=== PATIENT | male | born 1940 | race Caucasian/White ===

== ENCOUNTER 2016-09-18 06:44 | Day surgery (SDC) | payer OTHER ==
[2016-09-17 09:28] VITALS: BMI 25.7
[2016-09-18] MEDS ORDERED: LIDOCAINE HCL 1%, 10 MG/ML (20ML VIAL) ONE (07:18)
[2016-09-18] MEDS ORDERED: BUPIVACAINE HCL/PF 0.5% (5MG/ML) 10 ML VIAL ONE (07:18)
[2016-09-18] MEDS ORDERED: MIDAZOLAM HCL 2 MG/2 ML SINGLE DOSE VIAL ONE (08:56)
[2016-09-18] MEDS ORDERED: ceFAZolin SODIUM 1 GM VIAL ONE (08:56)
[2016-09-18] MEDS ORDERED: LIDOCAINE HCL/PF 2% SDV 5ML VIAL ONE (08:56)
[2016-09-18] MEDS ORDERED: PROPOFOL 20 ML ONE ×2 (08:56)
[2016-09-18] MEDS ORDERED: ceFAZolin SODIUM 1 GM VIAL IVPB ONE (09:08)
[2016-09-18] MEDS ORDERED: BUPIVACAINE HCL/PF 0.5% (5MG/ML) 10 ML VIAL IJ ONE ×2 (09:15)
[2016-09-18] MEDS ORDERED: LIDOCAINE HCL 1%, 10 MG/ML (20ML VIAL) IJ ONE ×2 (09:15)
--- NOTE | 2016-09-18 09:40 | HP ---
Satellite [facility] - Chief Complaint Chief Complaint: right hand pain and numbness, weakness History of Present Illness: right CTS History Source: Patient Limitations to Obtaining History: No Limitations - Past Medical History Allergies/Adverse Reactions: Allergies Allergy/AdvReac Type Severity Reaction Status Date / Time No Known Drug Allergies Allergy Verified 09/17/16 09:23 - Current Medications Current Medications: Home Medications Medication Instructions Recorded Gabapentin [Neurontin -] 300 mg PO Q8H 11/29/14 Simvastatin [Zocor -] 20 mg PO HS 11/29/14 Zolpidem Tartrate [Ambien] 10 mg PO HS 11/29/14 Clopidogrel Bisulfate [Plavix -] 75 mg PO DAILY 01/18/16 Fluticasone Prop 0.05% Nasal 1 puff NS DAILY 09/17/16 [Flonase -] Ibuprofen 800 mg PO DAILY 09/17/16 Mirabegron [Myrbetriq] 25 mg PO DAILY 09/17/16 Oxycodone HCl/Acetaminophen 1 each PO Q6H PRN 09/17/16 [Percocet 10-325 mg Tablet] Tamsulosin HCl [Flomax] 0.4 mg PO HS 09/17/16 Satellite Physical Exam - Physical Examination Vital Signs: Vital Signs Period Temp Pulse Resp BP Sys/[place] Pulse Ox Last 24 Hr 97.6 F 52 20 147/94 98 General Appearance: Well Nourished ENT: Clear Lung: Clear to auscultation Heart: Regular rate & rhythm Breasts: Soft Abdomen: Soft Extremities: No edema Satellite Impression/Plan - Impression/Plan Impression: right CTS Operative Procedure: right CTR, tenosynovectomy Date to be Performed: 09/18/16
--- NOTE | 2016-09-18 09:41 | OP ---
Operative Note - Note: Operative Date: 09/18/16 Pre-Operative Diagnosis: right CTS, tenosynovitis Operation: right CTR, tenosynovectomy Post-Operative Diagnosis: Same as Pre-op Surgeon: Richmond Butler Continuing Education Instructor: Frederick De La Torre Anesthesiologist/MANAGEMENT LIAISON: Fina Oro Anesthesia: General, Local Specimens Removed: tenosynovium Estimated Blood Loss (mls): 0 Blood Volume Replaced (mls): 0 Fluid Volume Replaced (mls): 500 Operative Report Dictated: Yes
[2016-09-18] MEDS ORDERED: oxyCODONE HCL 5 MG TABLET PO PRN (09:42)
[2016-09-18] MEDS ORDERED: ONDANSETRON 4 MG/2 ML VIAL IVPUSH PRN (09:42)
[2016-09-18 10:19] VITALS: TEMP 97.9
--- NOTE | 2016-09-18 12:39 | SPEC ---
DATE OF OPERATION: 09/18/2016 PREOPERATIVE DIAGNOSIS: Right carpal tunnel syndrome and tenosynovitis. POSTOPERATIVE DIAGNOSIS: Right carpal tunnel syndrome and tenosynovitis. PROCEDURE: Right carpal tunnel release and tenosynovectomy. SURGEON: Richmond Butler MD HIGH SCHOOL FORE[employer] LANGUAGE TUTOR: Frederick De La Torre MD, Fina Oro MD ANESTHESIA: MAC anesthesia, local injection of 12 mL 0.5% Marcaine, 1% lidocaine mixed. DRAINS: None. COMPLICATIONS: None. SPECIMENS: Tenosynovium, right wrist. BLOOD LOSS: None. BLOOD GIVEN: None. FLUID REPLACEMENT: 500 mL. The patient is a 75-year-old male with preoperative diagnosis of right carpal tunnel syndrome and tenosynovitis. After understanding the potential risks, complications, alternatives, and benefits of surgery versus nonsurgical treatment, the patient elected to undergo this procedure. DESCRIPTION OF PROCEDURE: The patient was brought to the operating room, peripheral IV placed and intravenous sedation was given. One gram of intravenous Ancef was given. MAC anesthesia was induced. A tourniquet was applied to the right upper arm and the right upper extremity was prepped and draped in sterile fashion. The entire case was done under 3.8 loupe magnification. A marking pen was utilized to ceci out a longitudinal incision in an already existing skin crease. Twenty mL of 0.5% Marcaine mixed with 1% Lidocaine was injected in and around the surgical incision. The right upper extremity was elevated, exsanguinated with an Esmarch bandage and the tourniquet inflated to 250 mmHg. A No. 15 scalpel blade was utilized to cut down through the skin. Subcutaneous hemostasis was achieved with the bipolar cautery. Dissection was done through the superficial palmar fascia. Self-retaining retractors were placed into the wound. Under direct visualization, the transverse carpal ligament was transected with a No. 15 scalpel blade, exposing the median nerve and the contents of the carpal tunnel. The distal and proximal extents of the release were completed with a Littler scissor and checked with irrigation and my small finger. They were seen to be complete. Limited dissection was done on the radial side of the median nerve and more extensive dissection was done on the ulnar side of the median nerve. The patients nerve was seen to be quite compressed by epineurium and therefore a limited epineurotomy was performed. A Ragnell retractor was used to gently retract the median nerve in a radial direction. The patient had a lot of tenosynovitis and therefore a tenosynovectomy was performed off all 9 flexor tendons. This was passed off the field as tenosynovium right wrist. The floor of the carpal tunnel was checked. There were no abnormal masses or ganglion cysts. The area was copiously irrigated and washed out and closure begun. Undyed 4-0 Vicryl was used to close the deep dermal layer. Final skin reapproximation was done with horizontal mattress 4-0 nylon sutures. The area was then washed and dried, covered with Xeroform, 4x4s, fluffs between the fingers, Webril and a 4-inch plaster roll was utilized to make a volar splint, which was then wrapped with Aletha and Coban. The tourniquet was taken down after a total tourniquet time of 18 minutes. There were no complications during the case. The patient tolerated the procedure well and was brought to the ambulatory recovery room in stable condition. Uriel [id number]
[2016-09-18 13:41] VITALS: BP 110/68; PULSE 52
--- NOTE | 2016-09-19 14:36 | PATH ---
Surgical Pathology Report Patient Name: HEATH RICHARD [facility]. Rec. #: [id number] /Age/Gender: 1940 (Age: 75) / M Account: [id number] Location: [facility] SURGICAL Taken: 09/18/2016 Received: 09/18/2016 Reported: 09/19/2016 Physicians: Richmond Butler M.D. Specimen(s) Received RIGHT TENOSYNOVIUM Clinical History Carpal tunnel syndrome Final Diagnosis SOFT TISSUE, RIGHT TENOSYNOVIUM, CARPAL TUNNEL RELEASE: BENIGN TENOSYNOVIAL FIBROCONNECTIVE TISSUE WITH FOCAL MYXOID DEGENERATION. Electronically Signed Mitchel Santiago M.D. Gross Description Received in formalin, labeled "right tenosynovium" is a 1.3 x 1.0 x 0.3 cm aggregate of mayfield-yellow, irregular portions of soft tissue, consistent with tenosynovium. The specimen is submitted in toto in one cassette. 09/18/201609/18/2016
== END 2016-09-18 12:30 | disposition home or self-care (01) ==
LOC: JASU-SURG 06:44
PROVIDERS: ATTEND Orthopaedic Surgery
PROC: 0LB50ZZ Excision of Right Lower Arm and Wrist Tendon, Open Approach (ICD-10-PCS; 2016-09-18)
PROC: 01N50ZZ Release Median Nerve, Open Approach (ICD-10-PCS; principal; 2016-09-18 08:00)
DX: G56.01 Carpal tunnel syndrome, right upper limb (principal); M65.831 Other synovitis and tenosynovitis, right forearm
CPT/HCPCS: 88304-TC; 94760

== ENCOUNTER 2016-10-23 08:56 | Inpatient (IN) | payer OTHER ==
[2016-10-23 10:24] LABS: BASOPHIL 1.3 % (0-2.0); MCH 28.5 pg (25.7-33.7); MCHC 32.9 g/dl (32.0-35.9); MEAN CELL VOLUME 86.9 fl (80-96); MEAN PLT VOLUME 8.3 fl (7.5-11.1); NEUTROPHILS 82.8 % (42.8-82.8); PLATELET COUNT 97 K/MM3 (134-434); RDW 15.1 % (11.9-15.9); WHITE BLOOD COUNT 8.8 K/mm3 (4.0-10.0)
[2016-10-23] MEDS ORDERED: OXYCODONE/APAP 5/325MG COMBO TABLET PO ONE (10:27)
[2016-10-23] MEDS ORDERED: OXYCODONE/APAP 5/325MG COMBO TABLET ONE (10:29)
[2016-10-23 10:50] LABS: INR 1.49 (0.82-1.09); PROTHROMBIN TIME (PATIENT) 16.5 SEC (9.98-11.88)
[2016-10-23 10:51] LABS: ALBUMIN 3.6 g/dl (3.4-5.0); BILIRUBIN,TOTAL 1.2 mg/dL (0.2-1.0); CALCIUM 8.3 mg/dL (8.5-10.1); CREATININE 1.3 mg/dL (0.7-1.3); TOT PROT 6.7 g/dl (6.4-8.2)
[2016-10-23 10:53] LABS: TROPONIN I 0.02 ng/ml (0.00-0.05)
--- NOTE | 2016-10-23 11:05 | PDOC ---
History of Present Illness <VeroTapan - Last Filed: 10/23/16 18:25> - General History Source: Patient, Spouse Exam Limitations: No Limitations - History of Present Illness Initial Comments: 10/23/16 09:07 The patient is a 75-year-old man, accompanied by , with a significant past medical history of hypercholesterolemia who presents to the emergency department via for further evaluation of left lower extremity numbness and pain since 18:00 yesterday afternoon. Patient reports extensive past vascular surgical history on his left leg (approximately 15 surgeries fem-fem bypass; aorta to left femoral). His last surgery was in 2007, performed by Dr. Lacho Cervantes at [facility]. 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 He states that for about every presentation, when found to have a clot, he feels numbing and pain over his left lower extremity. Patient states that post surgery, he has felt fine and asymptomatic, as he was able to ambulate, with a cane, and walk approximately 2 blocks. Yesterday evening, he went to go visit his neighbor and experienced left leg pain and numbness. He took a baby aspirin (81mg), felt better went to bed. This morning he woke up and his symptoms worsened, as his left leg gave up and fell. No head injury. No LOC. He has not taking anything for his pain, today. He took his Plavix, this morning. No fever, chills, generalized weakness. No chest pain, lightheadedness, dizziness, palpitations, headache, visual changes. No abdominal pain, nausea, vomiting, diarrhea. Allergies: No Known Drug Allergies. Past Surgical History: See HPI. Social History: No tobacco, ETOH or recreational drug use. Primary Care Physician: Dr. Sai Scales [phone] Vascular Surgeon: Dr. Mat Robison [phone] <Karolina Mckinney - Last Filed: 10/23/16 21:07> - General Chief Complaint: Pain Stated Complaint: NUMBNESS IN LEG Time Seen by Provider: 10/23/16 09:28 Past History - Past Medical History Anemia: No Asthma: No Cancer: No Cardiac Disorders: Yes (BYPASS SX - LAST ONE 2007) CVA: No COPD: No CHF: No Dementia: No Diabetes: No GI Disorders: No Disorders: No HTN: No Hypercholesterolemia: No Liver Disease: No Seizures: No Thyroid Disease: No - Surgical History Abdominal Surgery: No Appendectomy: No Cardiac Surgery: Yes (BYPASS ("ABOUT 15 PROCEDURE, STENTING") Cholecystectomy: No Lung Surgery: No Neurologic Surgery: No Orthopedic Surgery: Yes (RIGHT SHOULDER ARTHROSCOPY) - Psycho/Social/Smoking Cessation Hx Anxiety: No Suicidal Ideation: No Smoking History: Former smoker Have you smoked in the past 12 months: No If you are a former smoker, when did you quit?: 1974 Information on smoking cessation initiated: No Hx Alcohol Use: No Drug/Substance Use Hx: No Substance Use Type: None Hx Substance Use Treatment: No <Tapan Pham - Last Filed: 10/23/16 18:25> <Karolina Mckinney - Last Filed: 10/23/16 21:07> - Past Medical History Allergies/Adverse Reactions: Allergies Allergy/AdvReac Type Severity Reaction Status Date / Time No Known Drug Allergies Allergy Verified 09/17/16 09:23 Home Medications: Ambulatory Orders Gabapentin [Neurontin -] 300 mg PO Q8H 11/29/14 Simvastatin [Zocor -] 20 mg PO HS 11/29/14 Zolpidem Tartrate [Ambien] 10 mg PO HS 11/29/14 Clopidogrel Bisulfate [Plavix -] 75 mg PO DAILY 01/18/16 Mirabegron [Myrbetriq] 25 mg PO DAILY 09/17/16 Oxycodone HCl/Acetaminophen [Percocet 10-325 mg Tablet] 1 each PO Q6H PRN Tamsulosin HCl [Flomax] 0.4 mg PO HS 09/17/16 Review of Systems - Review of Systems Able to Perform ROS?: Yes Comments:: 10/23/16 09:07 GENERAL/CONSTITUTIONAL: No fever or chills. No weakness. HEAD, EYES, EARS, NOSE AND THROAT: No change in vision. No ear pain or discharge. No sore throat. CARDIOVASCULAR: No chest pain or shortness of breath. RESPIRATORY: No cough, wheezing, or hemoptysis. GASTROINTESTINAL: No nausea, vomiting, diarrhea or constipation. GENITOURINARY: No dysuria, frequency, or change in urination. MUSCULOSKELETAL: Yes: Left leg pain/numbing sensations. No neck or back pain. SKIN: No rash NEUROLOGIC: No headache, vertigo, loss of consciousness. ENDOCRINE: No increased thirst. No abnormal weight change. HEMATOLOGIC/LYMPHATIC: No anemia, easy bleeding, or history of blood clots. ALLERGIC/IMMUNOLOGIC: No hives or skin allergy. <Karolina Mckinney - Last Filed: 10/23/16 21:07> *Physical Exam - Vital Signs Last Vital Signs Temp Pulse Resp BP Pulse Ox 97.4 F L 55 L 18 181/75 99 10/23/16 09:09 10/23/16 10:25 10/23/16 10:25 10/23/16 10:25 10/23/16 10:25 <Tapan Pham - Last Filed: 10/23/16 18:25> - Vital Signs Last Vital Signs Temp Pulse Resp BP Pulse Ox 97.4 F L 55 L 18 181/75 99 10/23/16 09:09 10/23/16 10:25 10/23/16 10:25 10/23/16 10:25 10/23/16 10:25 - Physical Exam Comments: 10/23/16 09:08 GENERAL: Awake, alert, and fully oriented, in no acute distress HEAD: No signs of trauma EYES: PERRLA, EOMI, sclera anicteric, conjunctiva clear ENT: Auricles normal inspection, hearing grossly normal, nares patent, oropharynx clear without exudates. Moist mucosa NECK: Normal ROM, supple, no lymphadenopathy, JVD, or masses LUNGS: Breath sounds equal, clear to auscultation bilaterally. No wheezes, and no crackles HEART: Regular rate and rhythm, normal S1 and S2, no murmurs, rubs or gallops ABDOMEN: Soft, nontender, normoactive bowel sounds. No guarding, no rebound. No masses EXTREMITIES: Normal range of motion, no edema. No clubbing or cyanosis. No cords , erythema, or tenderness NEUROLOGICAL: Cranial nerves II through XII grossly intact. Normal speech. SKIN: Decrease in warmth moving down the lower extremities, just about a palms breath above the malleouli of the ankle, bilaterally <Karolina Mckinney - Last Filed: 10/23/16 21:07> Heart Score/ECG Review #1 10/23/16 09:34 EKG read and interpreted by me at 09:34 IMPRESSION: Rate of 56 bpm. Left axis deviation. When compared to previous EKG obtained from 06/30/2010, there is a delayed R wave progression, which is new today. <Mckinney,Karolina - Last Filed: 10/23/16 21:07> ED Treatment Course - LABORATORY CBC & Chemistry Diagram: 10/23/16 10:11 10/23/16 10:11 - ADDITIONAL ORDERS Additional order review: Laboratory Results 10/23/16 10/23/16 10/23/16 10:11 10:11 10:11 Sodium 142 Potassium 4.1 Chloride 107 Carbon Dioxide 26 Anion Gap 9 BUN 20 H Creatinine 1.3 Creat Clearance w eGFR 53.82 Random Glucose 95 Lactic Acid 1.398 Calcium 8.3 L Total Bilirubin 1.2 H AST 28 ALT 26 Alkaline Phosphatase 74 Creatine Kinase Cancelled 119 Troponin I Cancelled 0.02 Total Protein 6.7 Albumin 3.6 10/23/16 10:11 RBC 4.83 MCV 86.9 MCHC 32.9 RDW 15.1 MPV 8.3 Neutrophils % 82.8 Lymphocytes % 9.1 Monocytes % 5.8 Eosinophils % 1.0 Basophils % 1.3 - RADIOLOGY Radiology Studies Ordered: Category Date Time Status ABDOMEN CTA AOR & BLE RUNOFF [CT] Stat CT Scan 10/23/16 10:[address] WITHOUT CONTRAST [CT] Stat CT Scan 10/23/16 10:48 Ordered CHEST X-RAY PORTABLE* [RAD] Stat Radiology 10/23/16 10:05 Completed - Medications Given in the ED: ED Medications Discontinued Medications Generic Name Dose Route Start Last Admin Trade Name Freq PRN Reason Stop Dose Admin Oxycodone/Acetaminophen 2 combo 10/23/16 10:27 10/23/16 10:44 Percocet 5/325 - PO 10/23/16 10:28 2 combo ONCE ONE Administration <Tapan Pham - Last Filed: 10/23/16 18:25> - LABORATORY CBC & Chemistry Diagram: 10/23/16 10:11 10/23/16 10:11 - ADDITIONAL ORDERS Additional order review: Laboratory Results 10/23/16 10/23/16 10/23/16 10:11 10:11 10:11 Sodium 142 Potassium 4.1 Chloride 107 Carbon Dioxide 26 Anion Gap 9 BUN 20 H Creatinine 1.3 Creat Clearance w eGFR 53.82 Random Glucose 95 Lactic Acid 1.398 Calcium 8.3 L Total Bilirubin 1.2 H AST 28 ALT 26 Alkaline Phosphatase 74 Creatine Kinase Cancelled 119 Troponin I Cancelled 0.02 Total Protein 6.7 Albumin 3.6 10/23/16 10:11 RBC 4.83 MCV 86.9 MCHC 32.9 RDW 15.1 MPV 8.3 Neutrophils % 82.8 Lymphocytes % 9.1 Monocytes % 5.8 Eosinophils % 1.0 Basophils % 1.3 - Medications Given in the ED: ED Medications Discontinued Medications Generic Name Dose Route Start Last Admin Trade Name Freq PRN Reason Stop Dose Admin Oxycodone/Acetaminophen 2 combo 10/23/16 10:27 10/23/16 10:44 Percocet 5/325 - PO 10/23/16 10:28 2 combo ONCE ONE Administration <Karolina Mckinney - Last Filed: 10/23/16 21:07> Medical Decision Making - Medical Decision Making 10/23/16 09:[address] Sai Scales. Response by Dr. Sai Scales. Case was discussed. 10/23/16 10:[address] Mat Robison 10/23/16 10:[address] Mat Robison. Response by Dr. Mat Robison at 10:10. Would like a CTA of Abdomen and Pelvis with runoff to bilateral lower extremities. 10/23/16 10:42 Spoke to Radiologist, Dr. Conway. 10/23/16 04:30 Patient refusing to leave. Wants to stay at the hospital for physical therapy and observation, as he fears falling again. <Karolina Mckinney - Last Filed: 10/23/16 21:07> *DC/Admit/Observation/Transfer - Discharge Dispostion Admit: Yes - Attestations Physician Attestion: 10/23/16 11:05 I, Dr. Tapan Pham, attest that this document has been prepared under my direction and personally reviewed by me in its entirety. I further attest, that it accurately reflects all work, treatment, procedures and medical decision -making performed by me. <Tapan Pham - Last Filed: 10/23/16 18:25> - Attestations Scribe Attestion: 10/23/16 09:10 Documentation prepared by Karolina Mckinney, acting as bio medical technician for Tapan Pham DO. <Karolina Mckinney - Last Filed: 10/23/16 21:07> Diagnosis at time of Disposition: Pain in left ankle Qualifiers: Chronicity: unspecified Qualified Code(s): M25.572 - Pain in left ankle and joints of left foot - Referrals
[2016-10-23] MEDS ORDERED: morphine CARPU-JECT 4 MG/1 ML DISP.SYRIN ONE (13:57)
[2016-10-23] MEDS ORDERED: morphine CARPU-JECT 4 MG/1 ML DISP.SYRIN IVPUSH ONE (14:19)
[2016-10-23] MEDS ORDERED: HYDROmorphone HCL CARPU-JECT 1 MG/1 ML DISP.SYRIN ONE (17:02)
[2016-10-23] MEDS ORDERED: HYDROmorphone HCL CARPU-JECT 1 MG/1 ML DISP.SYRIN IVPB ONE (17:27)
[2016-10-23] MEDS ORDERED: CLOPIDOGREL BISULFATE 75 MG TABLET (FP) PO SCH (21:00)
[2016-10-23] MEDS ORDERED: ACETAMINOPHEN 325 MG TABLET (FP) PO PRN (21:25)
[2016-10-23] MEDS: TAMSULOSIN HCL 0.4 MG CAP.ER.24H (FP) PO SCH (21:40)
[2016-10-23] MEDS: GABAPENTIN 300 MG CAPSULE (FP) PO SCH (21:40)
[2016-10-23] MEDS: ATORVASTATIN CA 10 MG TABLET (FP) PO SCH (21:40)
[2016-10-23] MEDS: oxyCODONE HCL 5 MG TABLET PO PRN (21:41)
[2016-10-23] MEDS ORDERED: ZOLPIDEM TARTRATE 5 MG TABLET PO PRN (22:00)
--- NOTE | 2016-10-23 23:14 | PN ---
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 Code(s): R29.898 - OTH SYMPTOMS AND SIGNS INVOLVING THE MUSCULOSKELETAL SYSTEM <Leeanna Johnson - Last Filed: 10/24/16 00:11> Teaching Attending Note ATTENDING PHYSICIAN STATEMENT I saw and evaluated the patient. I reviewed the resident's note and discussed the case with the resident. I agree with the resident's findings and plan as documented. SUBJECTIVE: 75 yo M presents for further evaluation of left LE numbness since 6pm yesterday. Patient reports extensive past vascular surgical history on his left leg approximately 15 surgeries) due to previous episodes of these symptoms. Patient reports that since his most recent surgery in 2007, he has not felt any leg numbness or pain until yesterday. Yesterday, patient ambulated about 1 block from his house and on the return trip found his LLE unable to bear weight and in severe pain. Later in the night is symptoms resolved after he took an aspirin but returned this morning when he woke up and the patient reports falling. Patient is unable to remember the fall or give details about it. He also notes pain in his tailbone. Denies: fever, chills, generalized weakness, chest pain, lightheadedness, dizziness, palpitations, headache, and visual changes PMHx: HLD, BPH OBJECTIVE: Last Vital Signs Temp Pulse Resp BP Pulse Ox 98.2 F 58 L 18 171/74 100 10/23/16 22:00 10/23/16 22:00 10/23/16 22:00 10/23/16 22:00 10/23/16 20:18 GENERAL: Awake, alert, and fully oriented, in no acute distress HEENT: Atraumatic. PERRLA, EOMI. Moist mucosa. No JVD LUNGS: No distress, speaks full sentences, clear to auscultation bilaterally HEART: Regular rate and rhythm, normal S1 and S2, no murmurs, rubs or gallops, peripheral pulses normal and equal bilaterally. ABDOMEN: Soft, nontender, normoactive bowel sounds. No guarding, no rebound. L inguinal mass nontender. Multiple scars s/p laparotomy EXTREMITIES: LLE vessels are engorged. L foot is cool to touch. Sensation is intact. Normal movement and reflexes. Decreased strength 3/5. RLE has bypass scar on medial aspect of leg. NEUROLOGICAL: Cranial nerves II through XII grossly intact. Normal speech, no focal sensorimotor deficits. Negative paraspinal tenderness. Negative straight leg test. SKIN: Warm, Dry, normal turgor, no rashes or lesions noted. CBCD WBC 8.8 K/mm3 (4.0-10.0) 10/23/16 10:11 RBC 4.83 M/mm3 (4.00-5.60) 10/23/16 10:11 Hgb 13.8 GM/dL (11.7-16.9) 10/23/16 10:11 Hct 42.0 % (35.4-49) 10/23/16 10:11 MCV 86.9 fl (80-96) 10/23/16 10:11 MCHC 32.9 g/dl (32.0-35.9) 10/23/16 10:11 RDW 15.1 % (11.9-15.9) 10/23/16 10:11 Plt Count 97 K/MM3 (134-434) L 10/23/16 10:11 MPV 8.3 fl (7.5-11.1) 10/23/16 10:11 CMP Sodium 142 mmol/L (136-145) 10/23/16 10:11 Potassium 4.1 mmol/L (3.5-5.1) 10/23/16 10:11 Chloride 107 mmol/L (98-107) 10/23/16 10:11 Carbon Dioxide 26 mmol/L (21-32) 10/23/16 10:11 Anion Gap 9 (8-16) 10/23/16 10:11 BUN 20 mg/dL (7-18) H 10/23/16 10:11 Creatinine 1.3 mg/dL (0.7-1.3) 10/23/16 10:11 Creat Clearance w eGFR 53.82 (>60) 10/23/16 10:11 Calcium 8.3 mg/dL (8.5-10.1) L 10/23/16 10:11 Total Bilirubin 1.2 mg/dL (0.2-1.0) H 10/23/16 10:11 AST 28 U/L (15-37) 10/23/16 10:11 ALT 26 U/L (12-78) 10/23/16 10:11 Alkaline Phosphatase 74 U/L (45-117) 10/23/16 10:11 Total Protein 6.7 g/dl (6.4-8.2) 10/23/16 10:11 Albumin 3.6 g/dl (3.4-5.0) 10/23/16 10:11 Documentation prepared by Leeanna Johnson, acting as medical physics teacher for Amber Rice M.D.
--- NOTE | 2016-10-24 00:28 | HP ---
CHIEF COMPLAINT: "Left leg pain and numbness" PCP: Dr. Sai Kahn HISTORY OF PRESENT ILLNESS: Patient is a 75-year-old male presented with the chief complaints of left lower extremity numbness and severe pain. As per the patient, he walked to meet his next door neighbour one day ago at 7pm but was unable to walk back due to severe numbness of the left leg. He took a baby aspirin and he felt fine, was able to walk. This morning when he woke up, while trying to get out bed, he was unable to bear his weight on the left leg and fell on the floor. Doesn't remember how he landed or hit his head. Patient mentions he also had severe numbness starting from left inguinal area radiating towards the calf up to the left toes. Pain was excruciating, unbearable and came to the ED. Patient has a history of extensive vascular surgery for Peripheral vascular disease (had 15 surgeries in the past, last surgery in 2007- had femoral- femoral by pass; aorta to left femoral in [facility]. Last CTA was in 2015 which showed bilateral occlusion of bilateral femoral and popliteal arteries. Patient mentioned that he had a similar episode of numbness and pain on the left leg in 2007 but after the surgery, the numbness of the left leg went away completely everywhere else except the left toe. Has a h/o BPH. Nocturia for 2-3 days; increased frequency; but denies dysuria, urgency or urinary incontinence. Bowel habit normal. Sleep/Appetite Normal. ER course was notable for: (1) Afebrile; hemodynamically stable; No leukocytosis (2) Aorta with runoff CTA: report mentioned below (3) Dilaudid 1mg; Morphine 4mg Recent Travel: None PAST MEDICAL HISTORY: Hyperlipidemia; Peripheral vascular disease (Dx at age 42 years); BPH (Dx 3 yrs ago) PAST SURGICAL HISTORY: Recent left carpal tunnel repair; Right should arthoscopy Social History: Smoking: Quit in 1974 Alcohol: Denies Drugs: Denies Family History: Had a h/o PVD. Both parents . Allergies No Known Drug Allergies Allergy (Verified 09/17/16 09:23) HOME MEDICATIONS: Home Medications Medication Instructions Recorded Gabapentin [Neurontin -] 300 mg PO Q8H 11/29/14 Simvastatin [Zocor -] 20 mg PO HS 11/29/14 Zolpidem Tartrate [Ambien] 10 mg PO HS 11/29/14 Clopidogrel Bisulfate [Plavix -] 75 mg PO DAILY 01/18/16 Mirabegron [Myrbetriq] 25 mg PO DAILY 09/17/16 Oxycodone HCl/Acetaminophen 1 each PO Q6H PRN 09/17/16 [Percocet 10-325 mg Tablet] Tamsulosin HCl [Flomax] 0.4 mg PO HS 09/17/16 REVIEW OF SYSTEMS CONSTITUTIONAL: Absent: fever, chills, diaphoresis, generalized weakness, malaise, loss of appetite, weight change HEENT: Absent: rhinorrhea, nasal congestion, throat pain, throat swelling, difficulty swallowing, mouth swelling, ear pain, eye pain, visual changes CARDIOVASCULAR: Absent: chest pain, syncope, palpitations, irregular heart rate, lightheadedness , peripheral edema RESPIRATORY: Absent: cough, shortness of breath, dyspnea with exertion, orthopnea, wheezing, stridor, hemoptysis GASTROINTESTINAL: Absent: abdominal pain, abdominal distension, nausea, vomiting, diarrhea, constipation, melena, hematochezia GENITOURINARY: Absent: dysuria, frequency, urgency, hesitancy, hematuria, flank pain, genital pain MUSCULOSKELETAL: Absent: myalgia, arthralgia, joint swelling, back pain, neck pain SKIN: Absent: rash, itching, pallor HEMATOLOGIC/IMMUNOLOGIC: Absent: easy bleeding, easy bruising, lymphadenopathy, frequent infections ENDOCRINE: Absent: unexplained weight gain, unexplained weight loss, heat intolerance, cold intolerance NEUROLOGIC: Present: Left leg weakness, numbness, pain Absent: headache, focal weakness or paresthesias, dizziness, unsteady gait, seizure, mental status changes, bladder or bowel incontinence PSYCHIATRIC: Absent: anxiety, depression, suicidal or homicidal ideation, hallucinations. PHYSICAL EXAMINATION Vital Signs - 24 hr 10/23/16 10/23/16 10/23/16 18:50 20:18 22:00 Temperature 98.7 F 98.2 F Pulse Rate 58 L Pulse Rate [ 55 L 57 L Apical] Respiratory 17 18 Rate Blood Pressure 171/74 Blood Pressure 150/78 147/89 [Right Arm] O2 Sat by Pulse 95 100 Oximetry (%) GENERAL: Elderly male, lying comfortably in bed, Awake, alert, and fully oriented, in no acute distress. HEAD: Normal with no signs of trauma. EYES:EOM intact, no pallor or icterus. EARS, NOSE, THROAT: Ears normal. Moist mucous membranes. NECK: Supple. LUNGS: Breath sounds equal, clear to auscultation bilaterally. No wheezes, and no crackles. No accessory muscle use. HEART: Regular rate and rhythm, normal S1 and S2 without murmur, rub or gallop. ABDOMEN: Multiple surgical scars with hernia at the surgical site, Soft, nontender, not distended, normoactive bowel sounds, no guarding, no rebound, no masses. No hepatomegaly or splenomegaly. MUSCULOSKELETAL: Normal range of motion at all joints. No bony deformities or tenderness. No CVA tenderness. UPPER EXTREMITIES: 2+ pulses, warm, well-perfused. No cyanosis. No clubbing. No peripheral edema. LOWER EXTREMITIES: Right: 2+ pulses, warm, well-perfused. No calf tenderness. No peripheral edema. Left: No palpable pulses detected, warm, well perfused, Calf tenderness +; No periperal edema NEUROLOGICAL: Cranial nerves II-XII intact. Normal speech. Gait not observed. Right leg: normal bulk, power, tone reflexes. sensation intact Left leg: normal bulk, power 2/4; decreased sensation from left inguinal area to the tip of the toes. PSYCHIATRIC: Cooperative. Good eye contact. Appropriate mood and affect. SKIN: Warm, dry, normal turgor, no rashes or lesions noted, normal capillary refill. Aorta CTA 10/23/2016: Occluded distal thoracic aortic to left deep femoral artery bypass graft Occluded bypass graft connecting the thoracic aortic-left DFA bypass graft and the right LENS GRINDER. Occluded NAS to left SFA stent. Occluded infrarenal abdominal aorta, right and left common iliac arteries, left external iliac and internal iliac arteries, left LENS GRINDER, SFA and popliteal artery with minimal markedly diminutive infrapopliteal flow via twigs of collateral vessels. Occluded right SFA, popliteal artery and infrapopliteal arteries with essentially no flow seen below the knee. Moderate left main renal artery stenosis. Chronic changes in the right lung bases and the left lung surrounding the thoracic aortic bypass graft. Small areas of anterior abdominal wall defects -hernia containing omental fat. Chest x-ray: Large heart. Previous partial left rib resection with left clip. No acute pathology appreciated. ASSESSMENT/PLAN: Patient is a 75-year-old male with significant past medical history of Hyperlipidemia; Peripheral vascular disease (Dx at age 42 years); BPH (Dx 3 yrs ago) presented with the chief complaints of left lower extremity numbness and severe pain. 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 Patient presented with severe left leg numbness, excruciating pain, calf tenderness On arrival, afebrile, hemodynamically stable, labs wnl. CTA was done, report mentioned as above. Unchanged from prior CTA in 2016 In the ED, patient was given Dilaudid 1mg; Morphine 4mg Placed on observation in Med-Surg Vascular surgery consult MRI of lumbar spine with left lower extremity Continue statin and Aspirin 81 mg daily Patient has been complaining of excruciating pain even after an hour of dilaudid. Ordered IV Tylenol and and it improved. # s/p fall CT head-No acute pathology # BPH Continue Tamsulocin # Hyperlipidemia Continue Simvastatin # FEN IV NS Electrolytes to be repeated tomorrow Sodium controlled diet # Prophylaxis For DVT: Heparin 5000 IU sq For GI: Not indicated # Code status: Full Code # Dispo: Placed on observation in med-surg. Duration of stay likely 1-2 days. Illness, Investigation and Plan of care explained to the patient. He verbalized understanding. Case seen and discussed with Dr. Rice. Visit type - Emergency Visit Emergency Visit: Yes ED Registration Date: 10/23/16 Care time: The patient presented to the Emergency Department on the above date and was hospitalized for further evaluation of their emergent condition. - New Patient This patient is new to me today: Yes Date on this admission: 10/23/16 - Critical Care Critical Care patient: No
[2016-10-24] MEDS ORDERED: SODIUM CHLORIDE 1,000 ML IV SCH ×2 (00:30→14:53)
[2016-10-24] MEDS ORDERED: HYDROmorphone HCL CARPU-JECT 1 MG/1 ML DISP.SYRIN IVPB ONE (02:05)
[2016-10-24] MEDS ORDERED: ACETAMINOPHEN 1000 MG/100 ML VIAL (NON FORMULARY) IVPB ONE (03:27)
[2016-10-24 03:50] VITALS: BMI 24.5
[2016-10-24] MEDS: oxyCODONE HCL 5 MG TABLET PO PRN (04:35)
[2016-10-24] MEDS: GABAPENTIN 300 MG CAPSULE (FP) PO SCH ×2 (06:18→14:04)
[2016-10-24] MEDS ORDERED: HYDROmorphone HCL CARPU-JECT 1 MG/1 ML DISP.SYRIN IVPB PRN (09:07)
--- NOTE | 2016-10-24 09:19 | SPA.PREOP ---
[id number] bypass Surgeon: Mat Robison Consent: To be obtained by surgeon after risks, benefits and alternatives explained. Last Vital Signs Temp Pulse Resp BP Pulse Ox 97.9 F 57 L 20 150/61 95 10/24/16 06:38 10/24/16 06:38 10/24/16 06:38 10/24/16 06:38 10/23/16 22:00 Lab Results WBC 8.8 K/mm3 (4.0-10.0) 10/23/16 10:11 RBC 4.83 M/mm3 (4.00-5.60) 10/23/16 10:11 Hgb 13.8 GM/dL (11.7-16.9) 10/23/16 10:11 Hct 42.0 % (35.4-49) 10/23/16 10:11 MCV 86.9 fl (80-96) 10/23/16 10:11 MCHC 32.9 g/dl (32.0-35.9) 10/23/16 10:11 RDW 15.1 % (11.9-15.9) 10/23/16 10:11 Plt Count 97 K/MM3 (134-434) L 10/23/16 10:11 Sodium 142 mmol/L (136-145) 10/23/16 10:11 Potassium 4.1 mmol/L (3.5-5.1) 10/23/16 10:11 Chloride 107 mmol/L (98-107) 10/23/16 10:11 Carbon Dioxide 26 mmol/L (21-32) 10/23/16 10:11 Anion Gap 9 (8-16) 10/23/16 10:11 BUN 20 mg/dL (7-18) H 10/23/16 10:11 Creatinine 1.3 mg/dL (0.7-1.3) 10/23/16 10:11 Random Glucose 95 mg/dL (74-106) 10/23/16 10:11 Calcium 8.3 mg/dL (8.5-10.1) L 10/23/16 10:11 Blood Type B POSITIVE 10/23/16 10:10 Antibody Screen Positive H 10/23/16 10:10 INR 1.49 (0.82-1.09) H 10/23/16 10:11 - IMAGING Chest X-ray: Report Reviewed, Image Reviewed Cat Scan: Report Reviewed, Image Reviewed - ASSESSMENT/PLAN 1. NPO except po meds 2. GI/DVT PPX 3. Medical optimization / clearance 4. Cardio Consult ordered 5. 2 units PRBC on-hold for OR 6. ASA and Plavix held 7. Dilaudid pain management 6. Above plan discussed with Dr. Robison and agrees <Dmitry Terrell P - Last Filed: 10/24/16 09:20> - PRE-OP NOTE Dx: Planned Procedure: Surgeon: Consent: Obtained after surgeon explained all risks, benefits and alternatives. Opportunity for questions. Patient had none. Understood and signed without reservation. Last Vital Signs Temp Pulse Resp BP Pulse Ox 98.0 F 66 20 156/82 95 10/24/16 14:04 10/24/16 14:39 10/24/16 14:39 10/24/16 14:39 10/24/16 09:00 Lab Results WBC 9.6 K/mm3 (4.0-10.0) 10/24/16 11:00 RBC 4.49 M/mm3 (4.00-5.60) 10/24/16 11:00 Hgb 12.8 GM/dL (11.7-16.9) 10/24/16 11:00 Hct 38.8 % (35.4-49) 10/24/16 11:00 MCV 86.4 fl (80-96) 10/24/16 11:00 MCHC 33.0 g/dl (32.0-35.9) 10/24/16 11:00 RDW 15.3 % (11.9-15.9) 10/24/16 11:00 Plt Count 42 K/MM3 (134-434) L D 10/24/16 11:00 Sodium 138 mmol/L (136-145) 10/24/16 11:00 Potassium 4.3 mmol/L (3.5-5.1) 10/24/16 11:00 Chloride 103 mmol/L (98-107) 10/24/16 11:00 Carbon Dioxide 24 mmol/L (21-32) 10/24/16 11:00 Anion Gap 11 (8-16) 10/24/16 11:00 BUN 27 mg/dL (7-18) H D 10/24/16 11:00 Creatinine 1.8 mg/dL (0.7-1.3) H D 10/24/16 11:00 Random Glucose 115 mg/dL (74-106) H D 10/24/16 11:00 Calcium 7.9 mg/dL (8.5-10.1) L 10/24/16 11:00 Blood Type B POSITIVE 10/23/16 10:10 Antibody Screen Positive H 10/23/16 10:10 INR 1.32 (0.82-1.09) H 10/24/16 11:00 Patient has been followed in my office with history of chronic PAD with multiple prior surgeries at other hospitals. He has been stable with an aortic to fem-fem bypass and bilateral fem pop bypass. He has chronic toe numbness but is able to walk without pain up to a mile. About 2 years ago he was found to have occluded the right fem-pop but did not report any change in his walking. Yesterday, he developed numbness and pain which was relieved by Tylenol. He cane to ER with more numbness in the morning and a CTA showed occlusion of the aortic and femoral bypass grafts. He was found to have intact motor function in the feet and numbness in his toes. He is planned for graft thrombectomy and angiography. - ASSESSMENT/PLAN 1. Make NPO after midnight except po meds 2. GI/DVT PPX 3. Medical optimization / clearance <Mat Robison - Last Filed: 10/24/16 18:38> Visit type - Case Type Case Type: ED Admission - Emergency Emergency Visit: Yes ED Registration Date: 10/23/16 Care time: The patient presented to the Emergency Department on the above date and was hospitalized for further evaluation of their emergent condition. - New patient This patient is new to me today: Yes Date on this admission: 10/24/16 <Dmitry Terrell - Last Filed: 10/24/16 09:20>
[2016-10-24] MEDS ORDERED: ASPIRIN 81 MG CHEWABLE TABLETS PO SCH (10:00)
[2016-10-24] MEDS: HYDROmorphone HCL CARPU-JECT 2 MG/1 ML DISP.SYRIN IVPB PRN ×2 (10:16→14:02)
--- NOTE | 2016-10-24 11:15 | CON.CARD ---
Cardiology Consult (text) - Consultation Consultation Note: cc: left leg pain/numbness hpi: 75 m hx severe bl LE PAD s/p multiple stents/bypasses, hld, here with left leg pain/numbness. Pt had been feeling well until past few days when noticed his left leg was painful, numb and cold so came to ER. These are same sxs he gets whenever his LE has arterial occlusion and sxs improve after revascularization. No cp, sob, palps, dizzy, loc, pnd, orthopnea, le edema. No hx hrt dz, cad, chf, htn, cva/tia, dm, ckd. Very active at baseline, can walk 1-2 flights stairs and shoveled snow this winter w/o anginal sxs. pmh: per hpi psh: per hpi; shoulder surgery social: ex tob fam: no premature cad or scd ros: per hpi; no cough, nvd, fever, rash, wt loss, gib, hematuria, rivera, vision changes meds: Home Medications Medication Instructions Recorded Gabapentin [Neurontin -] 300 mg PO Q8H 11/29/14 Simvastatin [Zocor -] 20 mg PO HS 11/29/14 Zolpidem Tartrate [Ambien] 10 mg PO HS 11/29/14 Clopidogrel Bisulfate [Plavix -] 75 mg PO DAILY 01/18/16 Mirabegron [Myrbetriq] 25 mg PO DAILY 09/17/16 Oxycodone HCl/Acetaminophen 1 each PO Q6H PRN 09/17/16 [Percocet 10-325 mg Tablet] Tamsulosin HCl [Flomax] 0.4 mg PO HS 09/17/16 pe: Vital Signs Period Temp Pulse Resp BP Sys/[place] Pulse Ox Last 24 Hr 97.9 F-98.7 F 55-62 17-20 147-183/61-89 95-100 nad no jvd rrr s1s2 no mrg cta bl nl eff aaox3 no le edema abd nt nd pos bs no jaundice diaphoresis no carotid bruits, cold LE's b/l with no palpable distal pulses Laboratory Last Values WBC 8.8 K/mm3 (4.0-10.0) 10/23/16 10:11 RBC 4.83 M/mm3 (4.00-5.60) 10/23/16 10:11 Hgb 13.8 GM/dL (11.7-16.9) 10/23/16 10:11 Hct 42.0 % (35.4-49) 10/23/16 10:11 MCV 86.9 fl (80-96) 10/23/16 10:11 MCHC 32.9 g/dl (32.0-35.9) 10/23/16 10:11 RDW 15.1 % (11.9-15.9) 10/23/16 10:11 Plt Count 97 K/MM3 (134-434) L 10/23/16 10:11 MPV 8.3 fl (7.5-11.1) 10/23/16 10:11 Neutrophils % 82.8 % (42.8-82.8) 10/23/16 10:11 Lymphocytes % 9.1 % (8-40) 10/23/16 10:11 Monocytes % 5.8 % (3.8-10.2) 10/23/16 10:11 Eosinophils % 1.0 % (0-4.5) 10/23/16 10:11 Basophils % 1.3 % (0-2.0) 10/23/16 10:11 INR 1.49 (0.82-1.09) H 10/23/16 10:11 Sodium 142 mmol/L (136-145) 10/23/16 10:11 Potassium 4.1 mmol/L (3.5-5.1) 10/23/16 10:11 Chloride 107 mmol/L (98-107) 10/23/16 10:11 Carbon Dioxide 26 mmol/L (21-32) 10/23/16 10:11 Anion Gap 9 (8-16) 10/23/16 10:11 BUN 20 mg/dL (7-18) H 10/23/16 10:11 Creatinine 1.3 mg/dL (0.7-1.3) 10/23/16 10:11 Creat Clearance w eGFR 53.82 (>60) 10/23/16 10:11 Random Glucose 95 mg/dL (74-106) 10/23/16 10:11 Lactic Acid 1.398 mmol/L (0.4-2.0) 10/23/16 10:11 Calcium 8.3 mg/dL (8.5-10.1) L 10/23/16 10:11 Total Bilirubin 1.2 mg/dL (0.2-1.0) H 10/23/16 10:11 AST 28 U/L (15-37) 10/23/16 10:11 ALT 26 U/L (12-78) 10/23/16 10:11 Alkaline Phosphatase 74 U/L (45-117) 10/23/16 10:11 Creatine Kinase 119 IU/L (39-308) 10/23/16 10:11 Troponin I 0.02 ng/ml (0.00-0.05) 10/23/16 10:11 Total Protein 6.7 g/dl (6.4-8.2) 10/23/16 10:11 Albumin 3.6 g/dl (3.4-5.0) 10/23/16 10:11 Blood Type B POSITIVE 10/23/16 10:10 Antibody Screen Positive H 10/23/16 10:10 Antibody Identification No Result Required. 10/23/16 10:10 Antigen Identification K Antigen - NEGATIVE 10/23/16 10:10 Crossmatch See Detail 10/23/16 10:10 ecg 10/23/16: sr 56, nl intervals, lad, no ischemic changes, no sig change from 06/30/10 ecg cxr: clear lungs mibi 05/2012: no ischemia a/p: 75 m hx severe bl LE PAD s/p multiple stents/bypasses, hld, here with left leg pain/numbness. LE pad with ischemic LE and clotted graft: -pt having significant pain and has graft occlusion, planned for OR today for thrombectomy or possible bypass -vascular following -Pt has no unstable cardiac issues at present. He describes functional capacity >4 mets. He has no hx heart dz and ecg here unremarkable as well as benign prior MIBI here. Pt has ischemic LE and needs prompt revascularization so no further cardiac testing indicated at this time. Pt has intermediate risk of periop cardiac events for the planned surgery. hld: -cont statin elevated bp: -no hx of htn, likely due to significant pain from LE ischemia, cont pain management per primary team
[2016-10-24 11:18] LABS: BASOPHIL 0.8 % (0-2.0); EOSINOPHIL 0.5 % (0-4.5); MCH 28.5 pg (25.7-33.7); MEAN CELL VOLUME 86.4 fl (80-96); MEAN PLT VOLUME 7.3 fl (7.5-11.1); NEUTROPHILS 82.8 % (42.8-82.8); PLATELET COUNT 42 K/MM3 (134-434); RDW 15.3 % (11.9-15.9); WHITE BLOOD COUNT 9.6 K/mm3 (4.0-10.0)
[2016-10-24 11:52] LABS: ALBUMIN 3.3 g/dl (3.4-5.0); BILIRUBIN,TOTAL 1.2 mg/dL (0.2-1.0); CALCIUM 7.9 mg/dL (8.5-10.1); CREATININE 1.8 mg/dL (0.7-1.3); MAGNESIUM 1.9 mg/dL (1.8-2.4); PHOSPHOROUS 2.8 mg/dL (2.5-4.9); TOT PROT 6.1 g/dl (6.4-8.2)
[2016-10-24 12:15] LABS: INR 1.32 (0.82-1.09); PROTHROMBIN TIME (PATIENT) 14.6 SEC (9.98-11.88)
[2016-10-24 12:18] LABS: ACTIVATED PTT 34.4 SECONDS (26.9-34.4)
--- NOTE | 2016-10-24 14:36 | PN ---
Physical Exam: SUBJECTIVE: Patient seen and examined, c/o left ankle pain and numbness since admission. Now states that this feeling is starting in his right LE as well. Denies chest pain , sob, dizziness, lightheadedness. OBJECTIVE: Vital Signs Period Temp Pulse Resp BP Sys/[place] Pulse Ox Last 24 Hr 97.5 F 73 20 170/76 GENERAL: The patient is awake, alert, and fully oriented, in no acute distress. HEAD: Normal with no signs of trauma. EYES: PERRL, extraocular movements intact, sclera anicteric, conjunctiva clear. No ptosis. ENT: Ears normal, nares patent, oropharynx clear without exudates, moist mucous membranes. NECK: Trachea midline, full range of motion, supple. LUNGS: Breath sounds equal, clear to auscultation bilaterally, no wheezes, no crackles, no accessory muscle use. HEART: Regular rate and rhythm, S1, S2 without murmur, rub or gallop. ABDOMEN: Soft, nontender, nondistended, normoactive bowel sounds, no guarding, no rebound, no hepatosplenomegaly, no masses. EXTREMITIES: cool LE, no edema, decreased sensation of his left ankle and limited ROM NEUROLOGICAL: Cranial nerves II through XII grossly intact. Normal speech, gait not observed. PSYCH: Normal mood, normal affect. SKIN: Warm, dry, normal turgor, multiple scaring from previous grafting sx Laboratory Results - last 24 hr 10/24/16 10/24/16 10/24/16 11:00 11:00 11:00 WBC 9.6 RBC 4.49 Hgb 12.8 Hct 38.8 MCV 86.4 MCHC 33.0 RDW 15.3 Plt Count 42 L D MPV 7.3 L D Neutrophils % 82.8 Lymphocytes % 9.1 Monocytes % 6.8 Eosinophils % 0.5 Basophils % 0.8 INR 1.32 H PTT (Actin FS) 34.4 Sodium 138 Potassium 4.3 Chloride 103 Carbon Dioxide 24 Anion Gap 11 BUN 27 H D Creatinine 1.8 H D Creat Clearance w eGFR 36.97 Random Glucose 115 H D Calcium 7.9 L Phosphorus 2.8 Magnesium 1.9 Total Bilirubin 1.2 H AST 31 ALT 22 Alkaline Phosphatase 67 Total Protein 6.1 L Albumin 3.3 L Active Medications Generic Name Dose Route Start Last Admin Trade Name Freq PRN Reason Stop Dose Admin Acetaminophen 325 mg 10/23/16 21:25 10/23/16 21:40 Tylenol - PO 325 mg Q6H PRN Administration PAIN Atorvastatin Calcium 10 mg 10/23/16 22:00 10/23/16 21:40 Lipitor - PO 10 mg HS LADARIUS Administration Gabapentin 300 mg 10/23/16 22:00 10/24/16 14:04 Neurontin - PO Not Given TID LADARIUS Hydromorphone HCl 1 mg 10/24/16 09:07 Dilaudid Injection - IVPB Q4H PRN PAIN Hydromorphone HCl 2 mg 10/24/16 09:22 10/24/16 14:02 Dilaudid Injection - IVPB 2 mg Q4H PRN Administration PAIN LEVEL 6-10 Sodium Chloride 1,000 mls @ 83 mls/hr 10/24/16 00:30 10/24/16 02:32 Normal Saline - IV 83 mls/hr ASDIR LADARIUS Administration Non-Formulary Medication 25 mg 10/23/16 21:00 Mirabegron [Myrbetriq] PO DAILY LADARIUS Tamsulosin HCl 0.4 mg 10/23/16 22:00 10/23/16 21:40 Flomax - PO 0.4 mg HS LADARIUS Administration Zolpidem Tartrate 5 mg 10/23/16 22:00 10/23/16 23:05 Ambien - PO 5 mg HS PRN Administration Aorta CTA 10/23/2016: Occluded distal thoracic aortic to left deep femoral artery bypass graft Occluded bypass graft connecting the thoracic aortic-left DFA bypass graft and the right [employer] EX[employer]IENCE. Occluded NAS to left SFA stent. Occluded infrarenal abdominal aorta, right and left common iliac arteries, left external iliac and internal iliac arteries, left [employer]IENCE, SFA and popliteal artery with minimal markedly diminutive infrapopliteal flow via twigs of collateral vessels. Occluded right SFA, popliteal artery and infrapopliteal arteries with essentially no flow seen below the knee. Moderate left main renal artery stenosis. Chronic changes in the right lung bases and the left lung surrounding the thoracic aortic bypass graft. Small areas of anterior abdominal wall defects -hernia containing omental fat. Chest x-ray: Large heart. Previous partial left rib resection with left clip. No acute pathology appreciated. ASSESSMENT/PLAN: this is a 75 year old male with a significant PMHx of PAD, sp > 15 sx, presents with with severe left lower extremity numbness. CT angio details above, occlusion bypass graft, aortic left DFA and right [employer] EXPERIENCE. Occulded GROUP [employer] EXPERIENCE, SFA, poplitealt. Followed by Dr. Robison. OR this afternoon. #Severe peripheral vascular disease: OR today -multiple vessel occlusions -OR today with Dr. Robison -risk stratified for surgery; intermediate cardiac risk ; MET 4 at home #hypertension: -no known hx of hypertension; not on any medications; -most likely due to acute pain -if pain controlled and still hypertensive one time hydralazine 25mg po;if able to take pills being npo *s/p fall at home; most likely related to current vascular issue; decreased sensation/numb -head ct; negative for acute pathology -MRI ordered on admisiion pending to R/o other pathology #moderate left renal artery stenosis seen on CT angio -right artery patent #BPH: -tamsulin #hyperlipidemia: -simvastatin FEN: Fluids: IVF sx Electrolytes: wnl Diet: npo VTE: none as of now; going for sx Disposition: inpt; sx Visit type - Emergency Visit Emergency Visit: Yes ED Registration Date: 10/24/16 Care time: The patient presented to the Emergency Department on the above date and was hospitalized for further evaluation of their emergent condition. - New Patient This patient is new to me today: Yes Date on this admission: 10/24/16 - Critical Care Critical Care patient: No
--- NOTE | 2016-10-24 14:54 | PN ---
Teaching Attending Note Name of Resident: Ranjana Roca ATTENDING PHYSICIAN STATEMENT I saw and evaluated the patient. I reviewed the resident's note and discussed the case with the resident. I agree with the resident's findings and plan as documented. SUBJECTIVE:c/o B/L LE pain that improved with pain medication. states he has difficulty ambulating due to pain but not SOB. no CP, palpitations, N/V/C/D or recent infection. no recent changes to medications OBJECTIVE: Last Vital Signs Temp Pulse Resp BP Pulse Ox 97.5 F L 66 20 156/82 95 10/24/16 10:00 10/24/16 14:39 10/24/16 14:39 10/24/16 14:39 10/23/16 22:00 General NAD CV S1 S2 RRR no murmur/rub/gallop Lungs CTA B/L no wheezing/rales/rhonchi extremities cool, no pedal pulses appreciated. weak femoral pulse ASSESSMENT AND PLAN: 75yo M with PMH PVD s/p multiple stents and surgeries, BPH and dyslipidemia presented to the ER and was admitted for further evaluation of thier emergent condition 1. B/L arterial occlusion- NPO for surgery today. pt is low risk for high risk procedure. METS >4. hold asa/plavix. will resume when ok'd by surgery. pain control 2. Elevated BP- no hx of HTN. likely due to pain vs medication effect ( myrbertiq causes HTN) improved since admission. will monitor. re-start home medications as necessary 3. CRAIG- dehydration. urine appears dark. will increase IVF in setting of anticipated surgery. NS @100cc/h 4. DVT ppx- hold with anticipation of surgery
--- NOTE | 2016-10-24 16:21 | EKG ---
Test Reason : Blood Pressure : / mmHG Vent. Rate : 056 BPM Atrial Rate : 056 BPM P-R Int : 000 ms QRS Dur : 072 ms QT Int : 428 ms P-R-T Axes : 000 -40 036 degrees QTc Int : 413 ms SINUS BRADYCARDIA LEFT AXIS DEVIATION LEFT VENTRICULAR HYPERTROPHY ABNORMAL ECG Confirmed by EMELIA RODRIGEZ MD ([id number]) on 10/24/2016 4:21:23 PM Referred By: Confirmed By:EMELIA RODRIGEZ MD
--- NOTE | 2016-10-24 16:22 | EKG ---
Test Reason : Blood Pressure : / mmHG Vent. Rate : 060 BPM Atrial Rate : 060 BPM P-R Int : 158 ms QRS Dur : 076 ms QT Int : 428 ms P-R-T Axes : 057 -44 002 degrees QTc Int : 428 ms NORMAL SINUS RHYTHM LEFT AXIS DEVIATION LEFT VENTRICULAR HYPERTROPHY ABNORMAL ECG Confirmed by EMELIA RODRIGEZ MD ([id number]) on 10/24/2016 4:21:50 PM Referred By: Confirmed By:EMELIA RODRIGEZ MD
[2016-10-24] MEDS ORDERED: HEPARIN NA (PORCINE) 5,000 UNITS/ML 1ML VIAL ONE ×2 (19:21→20:09)
[2016-10-24] MEDS ORDERED: ONDANSETRON 4 MG/2 ML VIAL ONE (19:27)
[2016-10-24] MEDS ORDERED: ROCURONIUM BROMIDE 50 MG/5 ML VIAL ONE ×2 (19:30→20:49)
[2016-10-24] MEDS ORDERED: PROPOFOL 20 ML ONE (19:30)
[2016-10-24] MEDS ORDERED: MIDAZOLAM HCL 2 MG/2 ML SINGLE DOSE VIAL ONE ×3 (19:30→23:12)
[2016-10-24] MEDS ORDERED: ceFAZolin SODIUM 1 GM VIAL ONE (20:04)
[2016-10-24] MEDS ORDERED: ceFAZolin SODIUM 1 GM VIAL IVPB ONE (20:05)
[2016-10-24] MEDS ORDERED: THROMBIN (BOVINE) 5,000 UNIT VIAL TP ONE (21:44)
[2016-10-24] MEDS ORDERED: ONDANSETRON 4 MG/2 ML VIAL IVPUSH PRN ×2 (22:07→23:22)
[2016-10-24] MEDS ORDERED: PROMETHAZINE HCL 25 MG/1 ML VIAL IVPUSH PRN ×2 (22:07→23:22)
[2016-10-24] MEDS ORDERED: LACTATED RINGERS SOLUTION 1,000 ML IV SCH ×2 (22:15→23:30)
[2016-10-24] MEDS ORDERED: HYDROmorphone *PCA* 10MG/50ML DISP.SYRIN PCA SCH (22:15)
[2016-10-24] MEDS ORDERED: PROTAMINE SULFATE 50 MG/5 ML VIAL ONE (22:23)
[2016-10-24] MEDS ORDERED: GLYCOPYRROLATE 0.2 MG/1 ML VIAL ONE (22:37)
[2016-10-24] MEDS ORDERED: NEOSTIGMINE METHYLSULFATE 0.5 MG/ML - 10 ML MDV ONE (22:38)
[2016-10-24] MEDS ORDERED: DEXAMETHASONE SOD PHOSPHATE 4 MG/1 ML VIAL ONE (22:39)
[2016-10-24] MEDS ORDERED: METOPROLOL TARTRATE 5 MG/5 ML VIAL ONE (22:48)
[2016-10-24] MEDS ORDERED: POVIDONE-IODINE OINTMENT 10% - 28.4 GM TUBE ONE (23:01)
--- NOTE | 2016-10-24 23:17 | OP ---
Operative Note - Note: Operative Date: 10/24/16 Pre-Operative Diagnosis: Thrombosed aortofemoral and femoral-femoral bypass. Left femoral aneurysm Operation: Repair of left femoral aneurysm with femoral -femoral bypass. Thrombectomy of aorto-femoral graft. Angiography Findings: Large aneurysm left common femoral artery graft Patent deep femoral artery Right deep femoral patent Distal collateral flow on angiogram to level of proximal calves. Implants: 7 mm PTFE graft Post-Operative Diagnosis: Same as Pre-op Surgeon: Mat Robison Blunger Machine Operator: Dmitry Terrell Anesthesiologist/TECHNOLOGY LEAD: Valeri Conner ([facility]) Anesthesia: General Specimens Removed: Chronic thrombus from aneurysm. Fresh thrombus from aortic graft Estimated Blood Loss (mls): 1,500 Blood Volume Replaced (mls): 700
[2016-10-24] MEDS ORDERED: LORAZEPAM CARPU-JECT 2 MG/ML DISP.SYRIN IVPUSH ONE (23:22)
--- NOTE | 2016-10-24 23:23 | SURG ---
Surgery Florist Helper Note Florist Helper: Dmitry Terrell PA-C Date of Service: 10/24/16 Diagnosis: Thrombosed aortofemoral and femoral-femoral bypass. Left femoral aneurysm Procedure: Repair of left femoral aneurysm with femoral -femoral bypass. Thrombectomy of aorto-femoral graft. Angiography I was present for the entirety of the operative procedure. For further detail, please refer to operative report. Visit type - Case Type Case Type: ED Admission
[2016-10-24] MEDS ORDERED: HYDROmorphone HCL CARPU-JECT 2 MG/1 ML DISP.SYRIN ONE (23:41)
[2016-10-25 00:11] LABS: MCH 28.2 pg (25.7-33.7); MEAN CELL VOLUME 88.2 fl (80-96); PLATELET COUNT 60 K/MM3 (134-434); RDW 14.5 % (11.9-15.9); WHITE BLOOD COUNT 10.8 K/mm3 (4.0-10.0)
[2016-10-25] MEDS ORDERED: ZOLPIDEM TARTRATE 5 MG TABLET PO PRN (00:18)
[2016-10-25] MEDS ORDERED: HYDROmorphone HCL CARPU-JECT 1 MG/1 ML DISP.SYRIN IVPB PRN (00:18)
[2016-10-25] MEDS ORDERED: SODIUM CHLORIDE 1,000 ML IV SCH (00:18)
[2016-10-25] MEDS ORDERED: ACETAMINOPHEN 325 MG TABLET (FP) PO PRN (00:18)
[2016-10-25 00:37] LABS: COCKROFT - GAULT 60.48
[2016-10-25 00:43] LABS: CALCIUM 6.6 mg/dL (8.5-10.1)
[2016-10-25] MEDS: HYDROmorphone HCL CARPU-JECT 2 MG/1 ML DISP.SYRIN IVPB PRN ×4 (01:31→20:52)
[2016-10-25] MEDS ORDERED: CALCIUM GLUCONATE 10% - 1,000 MG/10 ML VIAL IVPB ONE (01:45)
[2016-10-25] MEDS ORDERED: CEFAZOLIN 1 GM/D5W 50 ML IVPB SCH (02:00)
--- NOTE | 2016-10-25 05:16 | CONSULT ---
Consult Consult Specialty:: Pulm/CCM Reason for Consultation:: LE numbness, pain - History of Present Illness Chief Complaint: pain LLE History of Present Illness: 75 yo man with HLD, BPH, CAD s/p stent, severe vasculopathy on ASA and plavix requiring multiple surgical interventions (stents, bypass) who presented with worsening LE numbness c/b fall (no head trauma/LOC). Briefly, he has been relatively pain free since his last surgery in 2007 and most recently last year had a CTA of lower extremities showing bilateral occlusion of bilateral femoral and popliteal arteries.Patient has been in his USOH, able to ambulate ~1 mile, climb 1-2 flights of stairs w/o dyspnea, does have mild numbness to toes, when the day prior to admission when he developed new onset significant LLE numbness , weakness and pain. Initially the pain resolved with APAP but returned the morning of admission when he fell getting out of bed prompting ED visit. Denies sick prodrome, nausea/vomiting, diarrhea, CP, SPRAGUE. He was admitted for w/u. Head CT negative for acute pathology. Aorta CTA showed occluded distal thoracic aortic to left deep femoral artery bypass graft, occluded bypass graft connecting the thoracic aortic-left DFA bypass graft and the right [employer], occluded NAS to left SFA stent, occluded infrarenal abdominal aorta, right and left common iliac arteries, left external iliac and internal iliac arteries, left [employer], SFA and popliteal artery with minimal markedly diminutive infrapopliteal flow via twigs of collateral vessels. Occluded right SFA, popliteal artery and infrapopliteal arteries with essentially no flow seen below the knee. Also with moderate left main renal artery stenosis. Vascular consulted and patient taken for left sided graft thrombectomy and angiography. In the ICU patient awake, alert w/o distress. Labs notable for anemia. PRBC ordered. - History Source History Provided By: Patient, Medical Record Limitations to Obtaining History: No Limitations - Past Medical History Cardio/Vascular: Yes: CAD - Alcohol/Substance Use Hx Alcohol Use: No - Smoking History Smoking history: Former smoker Have you smoked in the past 12 months: No If you are a former smoker, when did you quit?: 1975 Home Medications - Allergies Allergies/Adverse Reactions: Allergies Allergy/AdvReac Type Severity Reaction Status Date / Time No Known Drug Allergies Allergy Verified 09/17/16 09:23 - Home Medications Home Medications: Ambulatory Orders Gabapentin [Neurontin -] 300 mg PO Q8H 11/29/14 Simvastatin [Zocor -] 20 mg PO HS 11/29/14 Zolpidem Tartrate [Ambien] 10 mg PO HS 11/29/14 Clopidogrel Bisulfate [Plavix -] 75 mg PO DAILY 01/18/16 Mirabegron [Myrbetriq] 25 mg PO DAILY 09/17/16 Oxycodone HCl/Acetaminophen [Percocet 10-325 mg Tablet] 1 each PO Q6H PRN Tamsulosin HCl [Flomax] 0.4 mg PO HS 09/17/16 Family Disease History - Family Disease History Family History: Unremarkable Review of Systems - Review of Systems Musculoskeletal: reports: Extremity Pain, Muscle Weakness Physical Exam Vital Signs: Vital Signs Temperature 98.4 F 10/25/16 01:15 Pulse Rate 68 10/25/16 01:15 Respiratory Rate 18 10/25/16 01:15 Blood Pressure 118/80 10/25/16 01:15 O2 Sat by Pulse Oximetry (%) 100 10/25/16 01:19 Constitutional: Yes: Calm Cardiovascular: Yes: Regular Rate and Rhythm, S1, S2 Respiratory: Yes: CTA Bilaterally Extremities: Yes: Other (left TP doppler, right DP doppler) Edema: LLE: Trace, RLE: Trace Neurological: Yes: Alert, Oriented Psychiatric: Yes: Alert, Oriented Labs: CBC, BMP 10/24/16 23:45 10/24/16 23:45 Imaging - Results Chest X-ray: Report Reviewed, Image Reviewed Problem List - Problems (1) Left leg weakness Code(s): R29.898 - OT SYMPTOMS AND SIGNS INVOLVING THE MUSCULOSKELETAL SYSTEM (2) PAD (peripheral artery disease) Code(s): I73.9 - PERIPHERAL VASCULAR DISEASE, UNSPECIFIED (3) Pain in left ankle Code(s): M25.572 - PAIN IN LEFT ANKLE AND JOINTS OF LEFT FOOT Qualifiers: Chronicity: unspecified Qualified Code(s): M25.572 - Pain in left ankle and joints of left foot (4) Anemia Code(s): D64.9 - ANEMIA, UNSPECIFIED Assessment/Plan 75 yo man with HLD, BPH, significant PVD with new onset LLE pain/numbness found to have occluded graft/stents now s/p graft thrombectomy and angiography, c/c/b CRAIG now at risk for contrast induced nephropathy, anemia -Vascular following -cont antiplatelet/anticoagulation per surgery -pain management: opioids and gabapentin for neuropathy -transfuse for BP >7.0 -cont flomax, d/c gaming ZAIRA -cont statin -cont IV fluids -renal dose all medications -frequent LE vascular checks -ICU monitoring tonight Kang ACNP Pulm/CCM 35m
[2016-10-25] MEDS: GABAPENTIN 300 MG CAPSULE (FP) PO SCH ×3 (07:05→21:02)
--- NOTE | 2016-10-25 07:25 | PN ---
Physical Exam: SUBJECTIVE: Patient seen and examined at bedside NAD, BL leg pain has decreased significantly. pain at incision sight. No acute events, tolerating PO. Not yet OOB, producing urine, no BM. denies Cp, sob, SPRAGUE, fevers, chills, n/v/d. POD#1 blood loss anemia s/p 4 units PRBCs platelets-3 units OBJECTIVE: Vital Signs Period Temp Pulse Resp BP Sys/[place] Pulse Ox Last 24 Hr 97.5 F-98.9 F 60-73 12-23 103-170/53-82 99-100 GENERAL: The patient is awake, alert, and fully oriented, in no acute distress. HEAD: Normal with no signs of trauma. EYES: extraocular movements intact, sclera anicteric, conjunctiva clear. No ptosis. ENT: Ears normal, nares patent, oropharynx clear without exudates, moist mucous membranes. NECK: Trachea midline, full range of motion, supple. LUNGS: Breath sounds equal, clear to auscultation bilaterally, no wheezes, no crackles, no accessory muscle use. HEART: Regular rate and rhythm, S1, S2 without murmur, rub or gallop. ABDOMEN: Soft, nontender, nondistended, normoactive bowel sounds, no guarding, no rebound, no hepatosplenomegaly, no masses. EXTREMITIES: Left femoral incission covered with blood tinged dressing, dried and replaced by surgery, +2 left and +1 pulses on doppler, warm, well-perfused, no edema, no erythema. NEUROLOGICAL: Cranial nerves II through XII grossly intact. Normal speech, gait not observed. PSYCH: Normal mood, normal affect. SKIN: Warm, dry, normal turgor, no rashes or lesions noted Laboratory Results - last 24 hr 10/24/16 10/24/16 10/24/16 11:00 11:00 11:00 WBC 9.6 RBC 4.49 Hgb 12.8 Hct 38.8 MCV 86.4 MCHC 33.0 RDW 15.3 Plt Count 42 L D MPV 7.3 L D Neutrophils % 82.8 Lymphocytes % 9.1 Monocytes % 6.8 Eosinophils % 0.5 Basophils % 0.8 INR 1.32 H PTT (Actin FS) 34.4 Sodium 138 Potassium 4.3 Chloride 103 Carbon Dioxide 24 Anion Gap 11 BUN 27 H D Creatinine 1.8 H D Creat Clearance w eGFR 36.97 Random Glucose 115 H D Calcium 7.9 L Phosphorus 2.8 Magnesium 1.9 Total Bilirubin 1.2 H AST 31 ALT 22 Alkaline Phosphatase 67 Total Protein 6.1 L Albumin 3.3 L Blood Type Crossmatch IS Only 10/24/16 10/24/16 10/24/16 17:04 23:45 23:45 WBC 10.8 H RBC 2.28 L D Hgb 6.4 L* D Hct 20.1 L D MCV 88.2 MCHC 32.0 RDW 14.5 Plt Count 60 L D MPV 8.0 Neutrophils % Lymphocytes % Monocytes % Eosinophils % Basophils % INR Cancelled PTT (Actin FS) Sodium Potassium Chloride Carbon Dioxide Anion Gap BUN Creatinine Creat Clearance w eGFR Random Glucose Calcium Phosphorus Magnesium Total Bilirubin AST ALT Alkaline Phosphatase Total Protein Albumin Blood Type B POSITIVE Crossmatch IS Only See Detail 10/24/16 10/25/16 23:45 02:00 WBC RBC Hgb Hct MCV MCHC RDW Plt Count MPV Neutrophils % Lymphocytes % Monocytes % Eosinophils % Basophils % INR PTT (Actin FS) 28.8 Sodium 141 Potassium 4.7 Chloride 108 H Carbon Dioxide 17 L D Anion Gap 16 BUN 17 D Creatinine 1.0 D Creat Clearance w eGFR Random Glucose 109 H Calcium 6.6 L* Phosphorus Magnesium Total Bilirubin AST ALT Alkaline Phosphatase Total Protein Albumin Blood Type Crossmatch IS Only Active Medications Generic Name Dose Route Start Last Admin Trade Name Freq PRN Reason Stop Dose Admin Acetaminophen 325 mg 10/25/16 00:18 Tylenol - PO Q6H PRN PAIN Atorvastatin Calcium 10 mg 10/25/16 22:00 Lipitor - PO HS LADARIUS Cefazolin Sodium 1 gm 10/25/16 02:00 10/25/16 01:36 Ancef 1gm Ivpb (Pre-Docked) IVPB 10/26/16 01:59 1 gm Q8H-IV LADARIUS Administration Fentanyl 50 mcg 10/24/16 23:22 Sublimaze Injection - IVPUSH 10/27/16 23:23 [id number] PRN PAIN Gabapentin 300 mg 10/25/16 06:00 10/25/16 07:05 Neurontin - PO Not Given TID LADARIUS Hydromorphone HCl 1 mg 10/25/16 00:18 Dilaudid Injection - IVPB Q4H PRN PAIN Hydromorphone HCl 2 mg 10/25/16 00:18 10/25/16 07:04 Dilaudid Injection - IVPB 2 mg Q4H PRN Administration PAIN LEVEL 6-10 Lactated Ringer's 1,000 mls @ 125 mls/hr 10/24/16 23:30 10/25/16 01:32 Lactated Ringers Solution IV 125 mls/hr ASDIR LADARIUS Administration Non-Formulary Medication 25 mg 10/25/16 10:00 Mirabegron [Myrbetriq] PO DAILY LADARIUS Tamsulosin HCl 0.4 mg 10/25/16 22:00 Flomax - PO HS LADARIUS Zolpidem Tartrate 5 mg 10/25/16 00:18 Ambien - PO HS PRN ASSESSMENT/PLAN: Home Medication List Medication Instructions Recorded Confirmed Type Gabapentin [Neurontin -] 300 mg PO Q8H 11/29/14 10/23/16 History Simvastatin [Zocor -] 20 mg PO HS 11/29/14 10/23/16 History Zolpidem Tartrate [Ambien] 10 mg PO HS 11/29/14 10/23/16 History Clopidogrel Bisulfate [Plavix -] 75 mg PO DAILY 01/18/16 10/23/16 History Mirabegron [Myrbetriq] 25 mg PO DAILY 09/17/16 10/23/16 History Oxycodone HCl/Acetaminophen 1 each PO Q6H PRN 09/17/16 10/23/16 History [Percocet 10-325 mg Tablet] Tamsulosin HCl [Flomax] 0.4 mg PO HS 09/17/16 10/23/16 History Home Medication List Medication Instructions Recorded Confirmed Type Gabapentin [Neurontin -] 300 mg PO Q8H 11/29/14 10/23/16 History Simvastatin [Zocor -] 20 mg PO HS 11/29/14 10/23/16 History Zolpidem Tartrate [Ambien] 10 mg PO HS 11/29/14 10/23/16 History Clopidogrel Bisulfate [Plavix -] 75 mg PO DAILY 01/18/16 10/23/16 History Mirabegron [Myrbetriq] 25 mg PO DAILY 09/17/16 10/23/16 History Oxycodone HCl/Acetaminophen 1 each PO Q6H PRN 09/17/16 10/23/16 History [Percocet 10-325 mg Tablet] Tamsulosin HCl [Flomax] 0.4 mg PO HS 09/17/16 10/23/16 History Active Medications This is a 75 year old male with a significant PMHx of PAD, sp > 15 sx, presents with with severe left lower extremity numbness. CT angio details above, occlusion bypass graft, aortic left DFA and right [employer]. Occluded GR[place], SFA, popliteal. Followed by Dr. Robison. OR this afternoon. Severe peripheral vascular disease: POD #1 s/p Repair of left femoral aneurysm with femoral -femoral bypass; Thrombectomy of aorto-femoral graft blood loss anemia, acute blood loose during surgery s/p 4 units PRBCs platelets-3 units transfuse PRN -H/H stablized Antiplatelet induced plt dysfxn-last dose plavix 4/ and ASA 4/6 -not activley bleeding at this time monitor cbc leukocytosis:2/2 surgery, afebrile, -trend ; monitor vitals BPH: -tamsulin -gaming hyperlipidemia: -simvastatin FEN: Fluids: IVF sx Electrolytes: wnl Diet:soft VTE: none as of now Disposition: monitor in ICU over night if continue to be stable transfer to floors. Visit type - Emergency Visit Emergency Visit: Yes ED Registration Date: 10/24/16 Care time: The patient presented to the Emergency Department on the above date and was hospitalized for further evaluation of their emergent condition. - New Patient This patient is new to me today: Yes Date on this admission: 10/24/16 - Critical Care Critical Care patient: Yes Total Critical Care Time (in minutes): 42 Critical Care Statement: The care of this patient involved high complexity decision making to prevent further life threatening deterioration of the patient 's condition and/or to evalute & treat vital organ system(s) failure or risk of failure.
--- NOTE | 2016-10-25 08:29 | PN ---
Addendum entered and electronically signed by Dmitry Terrell PA 04/02/03 11:47: PLTS 87 2 FFP ordered H/H 12.9/38.6 Original Note: Progress Note (short form) - Note Progress Note: POD #1 Alert. Resting in position of comfort. C/o incisional tenderness. Pain significantly decreased to LLE s/p surgery. Pain management via PRN meds. Received a total of 4 PRBC and 2 FFP. Denies n/v/f/c, CP or SOB. Last Vital Signs Temp Pulse Resp BP Pulse Ox 98.2 F 66 18 131/71 100 10/25/16 06:00 10/25/16 06:00 10/25/16 06:00 10/25/16 06:00 10/25/16 01:19 CBC, BMP 10/24/16 23:45 10/24/16 23:45 INR, PTT INR 1.32 (0.82-1.09) H 04 11:00 PE Gen: alert. nad ABD: soft. NT. ND LE: Left groin sonal intact. Hematoma. Still oozing from lower pole of incision. Doppler PT b/l (R>L). DP absent b/l Problem List - Problems (1) PAD (peripheral artery disease) Assessment/Plan: POD #1 s/p Repair of left femoral aneurysm with femoral -femoral bypass. Thrombectomy of aorto-femoral graft. Angiography Soft diet ordered f/u CBC, BMP, INR, PT Cont gaming FFP PRN to keep platelets above 100 Dressing changed on rounds Above discussed with Dr. Robison and agrees Code(s): I73.9 - PERIPHERAL VASCULAR DISEASE, UNSPECIFIED (2) Anemia Assessment/Plan: Due to acute blood loss during surgery. Monitor H/H and transfuse PRBC PRN Code(s): D64.9 - ANEMIA, UNSPECIFIED
[2016-10-25 10:15] LABS: BASOPHIL 0.1 % (0-2.0); MCH 28.7 pg (25.7-33.7); MCHC 33.5 g/dl (32.0-35.9); MEAN CELL VOLUME 85.7 fl (80-96); MEAN PLT VOLUME 8.1 fl (7.5-11.1); NEUTROPHILS 89.2 % (42.8-82.8); PLATELET COUNT 87 K/MM3 (134-434); RDW 14.6 % (11.9-15.9); WHITE BLOOD COUNT 17.3 K/mm3 (4.0-10.0)
[2016-10-25 10:37] LABS: CALCIUM 7.9 mg/dL (8.5-10.1); COCKROFT - GAULT 35.57; CREATININE 1.7 mg/dL (0.7-1.3)
--- NOTE | 2016-10-25 14:03 | PN ---
Progress Note (short form) - Note Progress Note: ANESTHESIOLOGY POST-OP CHECK 75M s/p left aortofemoral graft thrombectomy, femoral aneurysm repair & fem-fem bypass under general anesthesia, POD #1. No acute events, pain 3/10 and tolerable, tolerating PO. Not yet OOB, gaming in place. Vital Signs Temperature 98.2 F 10/25/16 06:00 Pulse Rate 66 10/25/16 06:00 Respiratory Rate 18 10/25/16 06:00 Blood Pressure 131/71 10/25/16 06:00 O2 Sat by Pulse Oximetry (%) 100 10/25/16 01:19 Active Medications Acetaminophen (Tylenol -) 325 mg PO Q6H PRN PRN Reason: PAIN Atorvastatin Calcium (Lipitor -) 10 mg PO HS [facility] Cefazolin Sodium (Ancef 1gm Ivpb (Pre-Docked)) 1 gm IVPB Q8H-IV LADARIUS Stop: 10/26/16 01:59 Last Admin: 10/25/16 10:27 Dose: 1 gm Fentanyl (Sublimaze Injection -) 50 mcg IVPUSH [id number] PRN PRN Reason: PAIN Stop: 10/27/16 23:23 Gabapentin (Neurontin -) 300 mg PO TID [facility] Last Admin: 10/25/16 07:05 Dose: Not Given Hydromorphone HCl (Dilaudid Injection -) 1 mg IVPB Q4H PRN PRN Reason: PAIN Hydromorphone HCl (Dilaudid Injection -) 2 mg IVPB Q4H PRN PRN Reason: PAIN LEVEL 6-10 Last Admin: 10/25/16 12:08 Dose: 2 mg Lactated Ringer's (Lactated Ringers Solution) 1,000 mls @ 125 mls/hr IV ASDIR [facility] Last Admin: 10/25/16 01:32 Dose: 125 mls/hr Non-Formulary Medication (Mirabegron [Myrbetriq]) 25 mg PO DAILY [facility] Tamsulosin HCl (Flomax -) 0.4 mg PO HS [facility] Zolpidem Tartrate (Ambien -) 5 mg PO HS PRN Gen: awake alert No apparent anesthesia complications, pain well controlled. Continue management as per primary team.
--- NOTE | 2016-10-25 16:11 | PN ---
Physical Exam: SUBJECTIVE: Patient seen and examined POD #1 s/p Repair of left femoral aneurysm with femoral -femoral bypass. Thrombectomy of aorto-femoral graft; s/ p 4U prbc and 2U ffp. H/H stabilized. C/o decreased sensation of b/l LE, palmar aspect of b/l feet. OBJECTIVE: Vital Signs Period Temp Pulse Resp BP Sys/[place] Pulse Ox Last 24 Hr 98.2 F-98.9 F 60-73 12-23 103-158/53-81 99-100 GENERAL: The patient is awake, alert, and fully oriented, in no acute distress. HEAD: Normal with no signs of trauma. EYES: PERRL, extraocular movements intact, sclera anicteric, conjunctiva clear. No ptosis. ENT: Ears normal, nares patent, oropharynx clear without exudates, moist mucous membranes. NECK: Trachea midline, full range of motion, supple. LUNGS: Breath sounds equal, clear to auscultation bilaterally, no wheezes, no crackles, no accessory muscle use. HEART: Regular rate and rhythm, S1, S2 without murmur, rub or gallop. ABDOMEN: Soft, nontender, nondistended, normoactive bowel sounds, no guarding, no rebound, no hepatosplenomegaly, no masses. EXTREMITIES: 2+ pulses pedal, warm, well-perfused, no edema. Left femoral atr aneurysm repair, incision clean dry intact, small amt of surrounding swelling NEUROLOGICAL: Cranial nerves II through XII grossly intact. Normal speech, gait not observed. PSYCH: Normal mood, normal affect. SKIN: Warm, dry, normal turgor, no rashes or lesions noted Laboratory Results - last 24 hr 10/24/16 10/24/16 10/24/16 17:04 23:45 23:45 WBC 10.8 H RBC 2.28 L D Hgb 6.4 L* D Hct 20.1 L D MCV 88.2 MCHC 32.0 RDW 14.5 Plt Count 60 L D MPV 8.0 Neutrophils % Lymphocytes % Monocytes % Eosinophils % Basophils % INR Cancelled PTT (Actin FS) Sodium Potassium Chloride Carbon Dioxide Anion Gap BUN Creatinine Random Glucose Calcium Blood Type B POSITIVE Crossmatch IS Only See Detail 10/24/16 10/25/16 10/25/16 23:45 02:00 09:45 WBC 17.3 H D RBC 4.51 D Hgb 12.9 D Hct 38.6 D MCV 85.7 MCHC 33.5 RDW 14.6 Plt Count 87 L D MPV 8.1 Neutrophils % 89.2 H Lymphocytes % 3.5 L D Monocytes % 7.2 Eosinophils % 0.0 D Basophils % 0.1 INR PTT (Actin FS) 28.8 Sodium 141 Potassium 4.7 Chloride 108 H Carbon Dioxide 17 L D Anion Gap 16 BUN 17 D Creatinine 1.0 D Random Glucose 109 H Calcium 6.6 L* Blood Type Crossmatch IS Only 10/25/16 09:45 WBC RBC Hgb Hct MCV MCHC RDW Plt Count MPV Neutrophils % Lymphocytes % Monocytes % Eosinophils % Basophils % INR PTT (Actin FS) Sodium 140 Potassium 4.7 Chloride 105 Carbon Dioxide 25 D Anion Gap 10 BUN 27 H D Creatinine 1.7 H D Random Glucose 123 H Calcium 7.9 L Blood Type Crossmatch IS Only Active Medications Generic Name Dose Route Start Last Admin Trade Name Freq PRN Reason Stop Dose Admin Acetaminophen 325 mg 10/25/16 00:18 Tylenol - PO Q6H PRN PAIN Atorvastatin Calcium 10 mg 10/25/16 22:00 Lipitor - PO HS LADARIUS Cefazolin Sodium 1 gm 10/25/16 02:00 10/25/16 10:27 Ancef 1gm Ivpb (Pre-Docked) IVPB 10/26/16 01:59 1 gm Q8H-IV LADARIUS Administration Fentanyl 50 mcg 10/24/16 23:22 Sublimaze Injection - IVPUSH 10/27/16 23:23 [id number] PRN PAIN Gabapentin 300 mg 10/25/16 06:00 10/25/16 14:31 Neurontin - PO 300 mg TID LADARIUS Administration Hydromorphone HCl 1 mg 10/25/16 00:18 Dilaudid Injection - IVPB Q4H PRN PAIN Hydromorphone HCl 2 mg 10/25/16 00:18 10/25/16 12:08 Dilaudid Injection - IVPB 2 mg Q4H PRN Administration PAIN LEVEL 6-10 Lactated Ringer's 1,000 mls @ 125 mls/hr 10/24/16 23:30 10/25/16 01:32 Lactated Ringers Solution IV 125 mls/hr ASDIR LADARIUS Administration Non-Formulary Medication 25 mg 10/25/16 10:00 Mirabegron [Myrbetriq] PO DAILY LADARIUS Tamsulosin HCl 0.4 mg 10/25/16 22:00 Flomax - PO HS LADARIUS Zolpidem Tartrate 5 mg 10/25/16 00:18 Ambien - PO HS PRN Aorta CTA 10/23/2016: Occluded distal thoracic aortic to left deep femoral artery bypass graft Occluded bypass graft connecting the thoracic aortic-left DFA bypass graft and the right [employer]ELD [employer]IST. Occluded NAS to left SFA stent. Occluded infrarenal abdominal aorta, right and left common iliac arteries, left external iliac and internal iliac arteries, left FIELD A[employer]OMIST, SFA and popliteal artery with minimal markedly diminutive infrapopliteal flow via twigs of collateral vessels. Occluded right SFA, popliteal artery and infrapopliteal arteries with essentially no flow seen below the knee. Moderate left main renal artery stenosis. Chronic changes in the right lung bases and the left lung surrounding the thoracic aortic bypass graft. Small areas of anterior abdominal wall defects -hernia containing omental fat. Chest x-ray: Large heart. Previous partial left rib resection with left clip. No acute pathology appreciated. ASSESSMENT/PLAN: This is a 75 year old male with a significant PMHx of PAD, sp > 15 sx, presents with with severe left lower extremity numbness. CT angio details above, occlusion bypass graft, aortic left DFA and right FIELD AGRONOMIST. Occluded FIELD AGRONOMIST, SFA, popliteal. Followed by Dr. Robison. OR this afternoon. #Severe peripheral vascular disease: POD #1 s/p Repair of left femoral aneurysm with femoral -femoral bypass; Thrombectomy of aorto-femoral graft -4U PRBC and 2U FFP s/p sx yesterday -H/H stablized -Vascular following -risk stratified for surgery; intermediate cardiac risk ; MET 4 at home #leukocytosis:s/p sx -afebrile, -trend ; monitor vitals #hypertension:resolved; stable -most likely due to pain -if pain controlled and still hypertensive one time hydralazine 25mg po;if able to take pills being npo *s/p fall at home; most likely related to current vascular issue; decreased sensation/numb -head ct; negative for acute pathology #moderate left renal artery stenosis seen on CT angio -right artery patent #BPH: -tamsulin #hyperlipidemia: -simvastatin FEN: Fluids: IVF sx Electrolytes: wnl Diet:soft VTE: none as of now Disposition: inpt; sx Visit type - Emergency Visit Emergency Visit: Yes ED Registration Date: 10/24/16 Care time: The patient presented to the Emergency Department on the above date and was hospitalized for further evaluation of their emergent condition. - New Patient This patient is new to me today: No - Critical Care Critical Care patient: Yes Total Critical Care Time (in minutes): 35 Critical Care Statement: The care of this patient involved high complexity decision making to prevent further life threatening deterioration of the patient 's condition and/or to evalute & treat vital organ system(s) failure or risk of failure.
--- NOTE | 2016-10-25 17:27 | CONSULT ---
Consult - text type - Consultation Consultation Note: The patient is a 75-year-old man, with a significant past medical history of hypercholesterolemia who presented to the emergency department for further evaluation of left lower extremity numbness and pain. Patient reports extensive past vascular surgical history on his left leg (approximately 15 surgeries fem- fem bypass; aorta to left femoral). His last surgery was in 2007, performed by Dr. Lacho Cervantes at [facility]. 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 He states that for about every presentation, when found to have a clot, he feels numbing and pain over his left lower extremity. 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 - Past Medical History hypercholesterolemia PVD BPH - Surgical History Cardiac Surgery: Yes (BYPASS ("ABOUT 15 PROCEDURE, STENTING") Orthopedic Surgery: Yes (RIGHT SHOULDER ARTHROSCOPY) - Psycho/Social/Smoking Cessation Hx Smoking History: Former smoker Allergies/Adverse Reactions: Allergies Allergy/AdvReac Type Severity Reaction Status Date / Time No Known Drug Allergies Allergy Verified 09/17/16 09:23 Home Medications: Ambulatory Orders Gabapentin [Neurontin -] 300 mg PO Q8H 11/29/14 Simvastatin [Zocor -] 20 mg PO HS 11/29/14 Zolpidem Tartrate [Ambien] 10 mg PO HS 11/29/14 Clopidogrel Bisulfate [Plavix -] 75 mg PO DAILY 01/18/16 Mirabegron [Myrbetriq] 25 mg PO DAILY 09/17/16 Oxycodone HCl/Acetaminophen [Percocet 10-325 mg Tablet] 1 each PO Q6H PRN Tamsulosin HCl [Flomax] 0.4 mg PO HS 09/17/16 Active Medications Acetaminophen (Tylenol -) 325 mg PO Q6H PRN PRN Reason: PAIN Atorvastatin Calcium (Lipitor -) 10 mg PO HS [facility] Cefazolin Sodium (Ancef 1gm Ivpb (Pre-Docked)) 1 gm IVPB Q8H-IV [facility] Stop: 10/26/16 01:59 Last Admin: 10/25/16 10:27 Dose: 1 gm Fentanyl (Sublimaze Injection -) 50 mcg IVPUSH [id number] PRN PRN Reason: PAIN Stop: 10/27/16 23:23 Gabapentin (Neurontin -) 300 mg PO TID [facility] Last Admin: 10/25/16 14:31 Dose: 300 mg Hydromorphone HCl (Dilaudid Injection -) 1 mg IVPB Q4H PRN PRN Reason: PAIN Hydromorphone HCl (Dilaudid Injection -) 2 mg IVPB Q4H PRN PRN Reason: PAIN LEVEL 6-10 Last Admin: 10/25/16 12:08 Dose: 2 mg Lactated Ringer's (Lactated Ringers Solution) 1,000 mls @ 125 mls/hr IV ASDIR [facility] Last Admin: 10/25/16 01:32 Dose: 125 mls/hr Non-Formulary Medication (Mirabegron [Myrbetriq]) 25 mg PO DAILY [facility] Tamsulosin HCl (Flomax -) 0.4 mg PO HS [facility] Zolpidem Tartrate (Ambien -) 5 mg PO HS PRN - Vital Signs Last Vital Signs Temp Pulse Resp BP Pulse Ox 97.4 F L 55 L 18 181/75 99 10/23/16 09:09 10/23/16 10:25 10/23/16 10:25 10/23/16 10:25 10/23/16 10:25 Cor: RSR, No murmurs, No gallops Lungs: Clear to P&A Abd: Soft, Normal bowel sounds, No organomegaly Ext:No significant edema Abnormal Lab Results 10/23/16 10/24/16 10/24/16 10:10 17:04 23:45 WBC 10.8 H RBC 2.28 L D Hgb 6.4 L* D Hct 20.1 L D Plt Count 60 L D Neutrophils % Lymphocytes % Chloride Carbon Dioxide BUN Creatinine Random Glucose Calcium Antibody Screen Positive H Crossmatch See Detail Crossmatch IS Only See Detail See Detail 10/24/16 10/25/16 10/25/16 23:45 09:45 09:45 WBC 17.3 H D RBC Hgb Hct Plt Count 87 L D Neutrophils % 89.2 H Lymphocytes % 3.5 L D Chloride 108 H Carbon Dioxide 17 L D BUN 27 H D Creatinine 1.7 H D Random Glucose 109 H 123 H Calcium 6.6 L* 7.9 L Antibody Screen Crossmatch Crossmatch IS Only Home Medication List Medication Instructions Recorded Confirmed Type Gabapentin [Neurontin -] 300 mg PO Q8H 11/29/14 10/23/16 History Simvastatin [Zocor -] 20 mg PO HS 11/29/14 10/23/16 History Zolpidem Tartrate [Ambien] 10 mg PO HS 11/29/14 10/23/16 History Clopidogrel Bisulfate [Plavix -] 75 mg PO DAILY 01/18/16 10/23/16 History Mirabegron [Myrbetriq] 25 mg PO DAILY 09/17/16 10/23/16 History Oxycodone HCl/Acetaminophen 1 each PO Q6H PRN 09/17/16 10/23/16 History [Percocet 10-325 mg Tablet] Tamsulosin HCl [Flomax] 0.4 mg PO HS 09/17/16 10/23/16 History Active Medications Generic Name Dose Route Start Last Admin Trade Name Freq PRN Reason Stop Dose Admin Acetaminophen 325 mg 10/25/16 00:18 Tylenol - PO Q6H PRN PAIN Atorvastatin Calcium 10 mg 10/25/16 22:00 Lipitor - PO [facility] Cefazolin Sodium 1 gm 10/25/16 02:00 10/25/16 10:27 Ancef 1gm Ivpb (Pre-Docked) IVPB 10/26/16 01:59 1 gm Q8H-IV [facility]AR[facility] Administration Fentanyl 50 mcg 10/24/16 23:22 Sublimaze Injection - IVPUSH 10/27/16 23:23 [id number] PRN PAIN Gabapentin 300 mg 10/25/16 06:00 10/25/16 14:31 Neurontin - PO 300 mg TID [facility] Administration Hydromorphone HCl 1 mg 10/25/16 00:18 Dilaudid Injection - IVPB Q4H PRN PAIN Hydromorphone HCl 2 mg 10/25/16 00:18 10/25/16 12:08 Dilaudid Injection - IVPB 2 mg Q4H PRN Administration PAIN LEVEL 6-10 Lactated Ringer's 1,000 mls @ 125 mls/hr 10/24/16 23:30 10/25/16 01:32 Lactated Ringers Solution IV 125 mls/hr ASDIR LADARIUS Administration Non-Formulary Medication 25 mg 10/25/16 10:00 Mirabegron [Myrbetriq] PO DAILY [facility] Tamsulosin HCl 0.4 mg 10/25/16 22:00 Flomax - PO HS [facility] Zolpidem Tartrate 5 mg 10/25/16 00:18 Ambien - PO HS PRN A/P 75 y/o male with hyperchoolesterolemia, BPH, PVD , h/o multiple surgeries/stents ,came in with claudication s/p thrombectomy of aortofemoral graft, s/p repair Lt. femoral aneurysm and fem- fem bypass last dose plavix 4/5 and ASA 4/6 blood loss anemia s/p 4 units PRBCs platelets--3 units monitor CBC
--- NOTE | 2016-10-25 17:48 | PN ---
Teaching Attending Note Name of Resident: Ranjana Roca ATTENDING PHYSICIAN STATEMENT I saw and evaluated the patient. I reviewed the resident's note and discussed the case with the resident. I agree with the resident's findings and plan as documented. SUBJECTIVE:states has mild tenderness in the legs. controlled with medication. denies CP, SOB,fever, chills, N/V/C/D OBJECTIVE: Last Vital Signs Temp Pulse Resp BP Pulse Ox 98.7 F 65 20 144/70 100 10/25/16 14:29 10/25/16 14:29 10/25/16 14:29 10/25/16 14:29 10/25/16 01:19 General NAD CV S1 S2 RRR no murmur/rub/gallop Lungs CTA B/L no wheezing/rales/rhonchi extremities cool, no pedal pulses appreciated. oozing from groin. +hematoma ASSESSMENT AND PLAN: 75yo M with PMH PVD s/p multiple stents and surgeries, BPH and dyslipidemia presented to the ER and was admitted for further evaluation of thier emergent condition 1. PVD with B/L arterial occlusion-s/p angiogram with fem bypass and thrombectomy POD #2 . management per surgery. pain control 2. Acute hemorrhagic blood loss anemia- 1.5L blood loss during surgery. 2units PRBC and 2 platelets post-op on repeat hgb remained low and transfused additional 2 units. with good response. some blood oozing at surgical site. will monitor closely. compression. trend hgb closely 3. thrombocytopenia- 2 units platelets given yesterday. will tranfuse additional unit today. hematology consulted 2. Elevated BP- no hx of HTN. likely due to pain vs medication effect ( myrbertiq causes HTN) improved since admission. will monitor. 3. CRAIG- dehydration. avoid nephrotoxic agents. avoid nephrotoxic agents. good UOP. maintain ivf. 4. DVT ppx- hold with anticipation of surgery 5. ICU monitoring post-op. The care of this patient involved high complexity decision making to prevent further life threatening deterioration of the patient's condition and/or to evalute & treat vital organ system(s) failure or risk of failure. 40 minutes critical care time
[2016-10-25 18:15] LABS: MCH 29.3 pg (25.7-33.7); MCHC 34.7 g/dl (32.0-35.9); MEAN CELL VOLUME 84.5 fl (80-96); MEAN PLT VOLUME 8.9 fl (7.5-11.1); PLATELET COUNT 139 K/MM3 (134-434); RDW 14.8 % (11.9-15.9); WHITE BLOOD COUNT 16.6 K/mm3 (4.0-10.0)
--- NOTE | 2016-10-25 19:26 | PN ---
Progress Note (short form) - Note Progress Note: cc: left leg pain/numbness S: Doing well post-op. Pain controlled. no cp, sob, palps, dizziness Current Medications Acetaminophen (Tylenol -) 325 mg PO Q6H PRN PRN Reason: PAIN Atorvastatin Calcium (Lipitor -) 10 mg PO HS [facility] Cefazolin Sodium (Ancef 1gm Ivpb (Pre-Docked)) 1 gm IVPB Q8H-IV [facility] Stop: 10/26/16 01:59 Last Admin: 10/25/16 10:27 Dose: 1 gm Fentanyl (Sublimaze Injection -) 50 mcg IVPUSH [id number] PRN PRN Reason: PAIN Stop: 10/27/16 23:23 Gabapentin (Neurontin -) 300 mg PO TID [facility] Last Admin: 10/25/16 14:31 Dose: 300 mg Hydromorphone HCl (Dilaudid Injection -) 1 mg IVPB Q4H PRN PRN Reason: PAIN Hydromorphone HCl (Dilaudid Injection -) 2 mg IVPB Q4H PRN PRN Reason: PAIN LEVEL 6-10 Last Admin: 10/25/16 12:08 Dose: 2 mg Non-Formulary Medication (Mirabegron [Myrbetriq]) 25 mg PO DAILY [facility] Tamsulosin HCl (Flomax -) 0.4 mg PO HS [facility] Zolpidem Tartrate (Ambien -) 5 mg PO HS PRN Vital Signs Period Temp Pulse Resp BP Sys/[place] Pulse Ox Last 24 Hr 98.2 F-98.7 F 60-71 12-23 103-155/53-80 99-100 Intake & Output 10/23/16 10/24/16 10/25/16 10/26/16 07:59 07:59 07:59 07:59 Intake Total 848 5271 1096 Output Total 600 2250 300 Balance 248 3021 796 Weight 147 lb 11.2 oz pe: nad no jvd rrr s1s2 no mrg non-displaced pmi cta bl nl eff aaox3 no le edema abd nt nd pos bs no jaundice diaphoresis no carotid bruits, palpable dp on left, diminished on right no jaundice diaphoresis CBC, BMP 10/25/16 17:30 10/25/16 09:45 ecg 10/23/16: sr 56, nl intervals, lad, no ischemic changes, no sig change from 06/30/10 ecg tele: sr cxr: clear lungs mibi 05/2012: no ischemia a/p: 75 m hx severe bl LE PAD s/p multiple stents/bypasses, hld, here with left leg pain/numbness. LE pad with ischemic LE and clotted graft: -pt having significant pain and has graft occlusion. Found to have thrombosed aortofemoral and femfem bypass, lt fem artery aneurysm. s/p Repair of left femoral aneurysm with femoral -femoral bypass. Thrombectomy of aorto-femoral graft. Angiography. on 10/24. Stacy-operative CV risk estimated as intermediate. -vascular following - Doing well post-op. Pain, hr/bp controlled. - thrombocytopenia resolved. Hld -cont statin elevated bp: -no hx of htn, likely due to pain, cont pain management per primary team - If continues to persist, reassess need for medication.
[2016-10-25] MEDS ORDERED: SENNOSIDES 8.6MG TABLET (FP) PO PRN (20:17)
[2016-10-25] MEDS: POLYETHYLENE GLYCOL 3350 119 GM BTL PO SCH (21:11)
[2016-10-25] MEDS ORDERED: ATORVASTATIN CA 10 MG TABLET (FP) PO SCH (22:00)
[2016-10-25] MEDS ORDERED: TAMSULOSIN HCL 0.4 MG CAP.ER.24H (FP) PO SCH (22:00)
[2016-10-26] MEDS: GABAPENTIN 300 MG CAPSULE (FP) PO SCH ×4 (05:43→21:25)
[2016-10-26] MEDS: HYDROmorphone HCL CARPU-JECT 2 MG/1 ML DISP.SYRIN IVPB PRN ×3 (05:54→20:52)
[2016-10-26 06:37] LABS: EOSINOPHIL 1.4 % (0-4.5); MCH 29.3 pg (25.7-33.7); MCHC 34.7 g/dl (32.0-35.9); MEAN CELL VOLUME 84.3 fl (80-96); MEAN PLT VOLUME 9.3 fl (7.5-11.1); NEUTROPHILS 74.1 % (42.8-82.8); PLATELET COUNT 113 K/MM3 (134-434); RDW 14.8 % (11.9-15.9); WHITE BLOOD COUNT 12.3 K/mm3 (4.0-10.0)
[2016-10-26 06:49] LABS: INR 1.11 (0.82-1.09); PROTHROMBIN TIME (PATIENT) 12.2 SEC (9.98-11.88)
[2016-10-26 06:52] LABS: ACTIVATED PTT 25.7 SECONDS (26.9-34.4)
[2016-10-26 06:55] LABS: ALBUMIN 2.6 g/dl (3.4-5.0); BILIRUBIN,TOTAL 0.7 mg/dL (0.2-1.0); CALCIUM 7.5 mg/dL (8.5-10.1); TOT PROT 4.9 g/dl (6.4-8.2)
[2016-10-26 06:56] LABS: COCKROFT - GAULT 40.97; CREATININE 1.5 mg/dL (0.7-1.3)
[2016-10-26 07:01] LABS: MAGNESIUM 2.1 mg/dL (1.8-2.4); PHOSPHOROUS 2.1 mg/dL (2.5-4.9)
--- NOTE | 2016-10-26 07:50 | PN ---
Progress Note (short form) - Note Progress Note: PULM / CRITICAL CARE MEDICINE PROGRESS NOTE: Pt seen and examined in the ICU 24 HOUR EVENTS: -Feels well. On room air. Feet are warm. Dopplerable signals. No BM in 7 days Current Medications Acetaminophen (Tylenol -) 325 mg PO Q6H PRN PRN Reason: PAIN Last Admin: 10/25/16 21:03 Dose: 325 mg Atorvastatin Calcium (Lipitor -) 10 mg PO HS [facility] Last Admin: 10/25/16 21:02 Dose: 10 mg Fentanyl (Sublimaze Injection -) 50 mcg IVPUSH [id number] PRN PRN Reason: PAIN Stop: 10/27/16 23:23 Gabapentin (Neurontin -) 300 mg PO TID [facility] Last Admin: 10/26/16 05:43 Dose: 300 mg Hydromorphone HCl (Dilaudid Injection -) 1 mg IVPB Q4H PRN PRN Reason: PAIN Hydromorphone HCl (Dilaudid Injection -) 2 mg IVPB Q4H PRN PRN Reason: PAIN LEVEL 6-10 Last Admin: 10/26/16 05:54 Dose: 2 mg Non-Formulary Medication (Mirabegron [Myrbetriq]) 25 mg PO DAILY [facility] Polyethylene Glycol (Miralax (For Daily Use) -) 17 gm PO BID [facility] Last Admin: 10/25/16 21:11 Dose: 17 grams Senna (Senna -) 2 tab PO HS PRN PRN Reason: CONSTIPATION Last Admin: 10/25/16 21:11 Dose: 2 tab Tamsulosin HCl (Flomax -) 0.4 mg PO HS [facility] Last Admin: 10/25/16 21:02 Dose: 0.4 mg Zolpidem Tartrate (Ambien -) 5 mg PO HS PRN Last Admin: 10/25/16 22:37 Dose: 5 mg Vital Signs Temp 99.2 F 10/26/16 05:44 Pulse 75 10/26/16 05:44 Resp 20 10/26/16 05:44 BP 115/62 10/26/16 04:00 Pulse Ox 95 10/26/16 00:28 Intake & Output 10/25/16 10/26/16 10/26/16 18:59 06:59 18:59 Intake Total 2296 Output Total 300 800 Balance 1995 -800 Weight 68.3 kg 68.084 kg Intake: IV 750 Lactated Ringers Solution 750 1,000 ml @ 125 mls/hr IV ASDIR [facility] Rx#: [id number] IVPB 100 Oral 480 Packed Cells 700 Platelets 266 Output: Urine 300 800 Hinds 300 800 Other: Voiding Method Indwelling Catheter Indwelling Catheter Bowel Movement No Weight Measurement Method [facility]: Neuro: alert HENNT: PERRL Lungs: clear Heart: RRR Abd: soft Ext: dopplerable pules, warm, no edema, L groin surgical site with bulky dressing, no pain, edema, errythemia CBC, BMP 10/26/16 05:00 10/26/16 06:00 Imaging - Results Chest X-ray: Report Reviewed, Image Reviewed Problem List - Problems (1) Left leg weakness Code(s): R29.898 - OTH SYMPTOMS AND SIGNS INVOLVING THE MUSCULOSKELETAL SYSTEM (2) PAD (peripheral artery disease) Code(s): I73.9 - PERIPHERAL VASCULAR DISEASE, UNSPECIFIED (3) Pain in left ankle Code(s): M25.572 - PAIN IN LEFT ANKLE AND JOINTS OF LEFT FOOT Qualifiers: Chronicity: unspecified Qualified Code(s): M25.572 - Pain in left ankle and joints of left foot (4) Anemia Code(s): D64.9 - ANEMIA, UNSPECIFIED Assessment/Plan 75 yo man with HLD, BPH, significant PVD with new onset LLE pain/numbness found to have occluded graft/stents now s/p graft thrombectomy and angiography, c/c/b CRAIG now at risk for contrast induced nephropathy, anemia -Vascular following -cont antiplatelet/anticoagulation per surgery -frequent vascular checks -pain management: opioids and gabapentin for neuropathy -cont flomax -cont statin -cont IV fluids -Needs to have BM - escalate regimen Transfer to the floor today 35m Usama Montesinos Pulm/Critical Care [employer]
--- NOTE | 2016-10-26 08:07 | PN ---
Progress Note (short form) - Note Progress Note: burning sensation in the L dorsum of the foot. no bleeding appreciated. no BM in 7 days. tolerating diet. denies CP, SOB,fever, chills, N/V/D Current Medications Generic Name Dose Route Start Last Admin Trade Name Freq PRN Reason Stop Dose Admin Acetaminophen 325 mg 10/25/16 00:18 10/25/16 21:03 Tylenol - PO 325 mg Q6H PRN Administration PAIN Atorvastatin Calcium 10 mg 10/25/16 22:00 10/25/16 21:02 Lipitor - PO 10 mg HS LADAR[facility]US Administration Bisacodyl 10 mg 10/26/16 07:50 Dulcolax Suppository - MT 10/26/16 07:51 ONCE ONE Fentanyl 50 mcg 10/24/16 23:22 Sublimaze Injection - IVPUSH 10/27/16 23:23 [id number] PRN PAIN Gabapentin 300 mg 10/25/16 06:00 10/26/16 05:43 Neurontin - PO 300 mg TID LAD[facility]US Administration Hydromorphone HCl 1 mg 10/25/16 00:18 Dilaudid Injection - IVPB Q4H PRN PAIN Hydromorphone HCl 2 mg 10/25/16 00:18 10/26/16 05:54 Dilaudid Injection - IVPB 2 mg Q4H PRN Administration PAIN LEVEL 6-10 Non-Formulary Medication 25 mg 10/25/16 10:00 Mirabegron [Myrbetriq] PO DAILY [facility] Polyethylene Glycol 17 gm 10/25/16 22:00 10/25/16 21:11 Miralax (For Daily Use) - PO 17 grams BID [facility]US Administration Senna 2 tab 10/25/16 20:17 10/25/16 21:11 Senna - PO 2 tab HS PRN Administration CONSTIPATION Tamsulosin HCl 0.4 mg 10/25/16 22:00 10/25/16 21:02 Flomax - PO 0.4 mg HS [facility]US Administration Zolpidem Tartrate 5 mg 10/25/16 00:18 10/25/16 22:37 Ambien - PO 5 mg HS PRN Administration Last Vital Signs Temp Pulse Resp BP Pulse Ox 99.2 F 75 20 115/62 95 10/26/16 05:44 10/26/16 05:44 10/26/16 05:44 10/26/16 04:00 10/26/16 00:28 General NAD CV S1 S2 RRR no murmur/rub/gallop Lungs CTA B/L no wheezing/rales/rhonchi extremities warm LLE, L groin no oozing noted from surgical site, sonal intact , skin well approximated. bandages with dried blood. ASSESSMENT AND PLAN: 75yo M with PMH PVD s/p multiple stents and surgeries, BPH and dyslipidemia presented to the ER and was admitted for further evaluation of thier emergent condition 1. PVD with B/L arterial occlusion-s/p angiogram with fem bypass and thrombectomy POD #3. management per surgery. OOB to chair when ok'd by surgery. pain control 2. Acute hemorrhagic blood loss anemia- 1.5L blood loss during surgery. s/p 4 units PRBC this admission. no more bleeding noted from surgical site. will repeat CBC in the afternoon. txn for hgb <8. 3. thrombocytopenia- 3 units platelets given this admission. platelet count stable. no active bleeding appreciated. hematology consulted 4, constipation- miralax increased to BID dosing, senna QHS. if no BM by tomorrow will give enema 5. Elevated BP- no hx of HTN. likely due to pain. now controlled. 6. CRAIG- dehydration. avoid nephrotoxic agents. improving. avoid nephrotoxic agents. good UOP. 7. DVT ppx- hold with anticipation of surgery. will start once hgb stabilizes 8. stable for transfer to medical floors The care of this patient involved high complexity decision making to prevent further life threatening deterioration of the patient's condition and/or to evalute & treat vital organ system(s) failure or risk of failure. 35 minutes critical care time Visit type - Emergency Visit Emergency Visit: Yes ED Registration Date: 10/24/16 Care time: The patient presented to the Emergency Department on the above date and was hospitalized for further evaluation of their emergent condition. - New Patient This patient is new to me today: No - Critical Care Critical Care patient: Yes Total Critical Care Time (in minutes): 35 Critical Care Statement: The care of this patient involved high complexity decision making to prevent further life threatening deterioration of the patient 's condition and/or to evalute & treat vital organ system(s) failure or risk of failure. - Discharge Referral Referred to [facility] No
--- NOTE | 2016-10-26 08:38 | PN ---
Progress Note (short form) - Note Progress Note: POD #2 Alert. Resting in position of comfort. Pain significantly decreased to LLE s/p surgery. C/o mild numbness to left foot which was present prior to surgery per patient. Pain management via PRN meds. Hematology consult appreciated. Bleeding from incision completely resolved s/p multiple FFP. Denies n/v/f/c, CP or SOB. Last Vital Signs Temp Pulse Resp BP Pulse Ox 99.2 F 75 20 115/62 95 10/26/16 05:44 10/26/16 05:44 10/26/16 05:44 10/26/16 04:00 10/26/16 00:28 CBC, BMP 10/26/16 05:00 INR, PTT INR 1.11 (0.82-1.09) 10/26/16 05:00 Fibrinogen 262.0 mg/dL (238-498) 10/26/16 05:00 PE General: alert. nad LLE: groin incision intact with sonal. ecchymosis. + hematoma. No calf tenderness. No edema. Foot warm. Doppler PT b/l (R>L). Problem List - Problems (1) PAD (peripheral artery disease) Assessment/Plan: POD #2 s/p Repair of left femoral aneurysm with femoral -femoral bypass. Thrombectomy of aorto-femoral graft. Angiography Regular diet DC gaming and begin trial of void Out of bed and ambulate once transferred to floor [place] to floor Above discussed with Dr. Robison and agrees Code(s): I73.9 - PERIPHERAL VASCULAR DISEASE, UNSPECIFIED (2) Anemia Code(s): D64.9 - ANEMIA, UNSPECIFIED
[2016-10-26] MEDS ORDERED: BISACODYL 10 MG SUPP.RECT RC ONE ×2 (09:00→11:04)
[2016-10-26] MEDS: POLYETHYLENE GLYCOL 3350 119 GM BTL PO SCH ×2 (10:56→21:26)
[2016-10-26 15:29] LABS: MCH 29.5 pg (25.7-33.7); MCHC 34.7 g/dl (32.0-35.9); MEAN CELL VOLUME 85.2 fl (80-96); MEAN PLT VOLUME 9.6 fl (7.5-11.1); PLATELET COUNT 114 K/MM3 (134-434); WHITE BLOOD COUNT 12.3 K/mm3 (4.0-10.0)
--- NOTE | 2016-10-26 17:58 | PN ---
Progress Note, Physician History of Present Illness: No complaints No leg pain Feels much improved - Current Medication List Current Medications: Active Medications Acetaminophen (Tylenol -) 325 mg PO Q6H PRN PRN Reason: PAIN Last Admin: 10/25/16 21:03 Dose: 325 mg Atorvastatin Calcium (Lipitor -) 10 mg PO HS [facility] Last Admin: 10/25/16 21:02 Dose: 10 mg Fentanyl (Sublimaze Injection -) 50 mcg IVPUSH [id number] PRN PRN Reason: PAIN Stop: 10/27/16 23:23 Gabapentin (Neurontin -) 300 mg PO TID [facility] Last Admin: 10/26/16 14:41 Dose: 300 mg Hydromorphone HCl (Dilaudid Injection -) 1 mg IVPB Q4H PRN PRN Reason: PAIN Hydromorphone HCl (Dilaudid Injection -) 2 mg IVPB Q4H PRN PRN Reason: PAIN LEVEL 6-10 Last Admin: 10/26/16 14:00 Dose: 2 mg Non-Formulary Medication (Mirabegron [Myrbetriq]) 25 mg PO DAILY [facility] Polyethylene Glycol (Miralax (For Daily Use) -) 17 gm PO BID [facility] Last Admin: 10/26/16 10:56 Dose: 17 grams Senna (Senna -) 2 tab PO HS PRN PRN Reason: CONSTIPATION Last Admin: 10/25/16 21:11 Dose: 2 tab Tamsulosin HCl (Flomax -) 0.4 mg PO [facility] Last Admin: 10/25/16 21:02 Dose: 0.4 mg Zolpidem Tartrate (Ambien -) 5 mg PO HS PRN Last Admin: 10/25/16 22:37 Dose: 5 mg - Objective Vital Signs: Vital Signs Temperature 98.0 F 10/26/16 10:00 Pulse Rate 78 10/26/16 12:00 Respiratory Rate 18 10/26/16 12:00 Blood Pressure 101/78 10/26/16 12:00 O2 Sat by Pulse Oximetry (%) 94 L 10/26/16 09:00 Constitutional: Yes: No Distress Eyes: Yes: WNL HENT: Yes: WNL Neck: Yes: WNL Cardiovascular: Yes: WNL Respiratory: Yes: WNL Gastrointestinal: Yes: WNL Musculoskeletal: Yes: Other (warm) Edema: No Labs: CBC, BMP 04/08/17 Unknown 10/26/16 06:00 INR, PTT INR 1.11 (0.82-1.09) 10/26/16 05:00 Fibrinogen 262.0 mg/dL (238-498) 10/26/16 05:00 Assessment/Plan a/p: 75 m hx severe bl LE PAD s/p multiple stents/bypasses, hld, here with left leg pain/numbness. LE pad with ischemic LE and clotted graft: -pt having significant pain and has graft occlusion. Found to have thrombosed aortofemoral and femfem bypass, lt fem artery aneurysm. s/p Repair of left femoral aneurysm with femoral -femoral bypass. Thrombectomy of aorto-femoral graft. Angiography. on 10/24. Stacy-operative CV risk estimated as intermediate. -vascular following - Doing well post-op. Pain, hr/bp controlled. - thrombocytopenia resolved. Hld -cont statin elevated bp: -no hx of htn, likely due to pain, cont pain management per primary team - If continues to persist, reassess need for medication.
[2016-10-26] MEDS ORDERED: SENNOSIDES 8.6MG TABLET (FP) PO PRN (18:58)
[2016-10-26] MEDS ORDERED: ACETAMINOPHEN 325 MG TABLET (FP) PO PRN (18:58)
[2016-10-26] MEDS: PATIENT'S OWN MEDICATION (NON-FORMULARY) (Mirabegron [Myrbetriq] 25 MG) PO SCH ×4 (20:54→20:57)
[2016-10-26] MEDS: ATORVASTATIN CA 10 MG TABLET (FP) PO SCH ×2 (20:54→21:25)
[2016-10-26] MEDS: TAMSULOSIN HCL 0.4 MG CAP.ER.24H (FP) PO SCH ×2 (20:54→21:25)
[2016-10-27] MEDS: GABAPENTIN 300 MG CAPSULE (FP) PO SCH ×3 (06:29→22:25)
[2016-10-27] MEDS: HYDROmorphone HCL CARPU-JECT 2 MG/1 ML DISP.SYRIN IVPB PRN (06:42)
[2016-10-27 08:14] LABS: MCH 29.1 pg (25.7-33.7); MCHC 33.9 g/dl (32.0-35.9); MEAN CELL VOLUME 85.8 fl (80-96); MEAN PLT VOLUME 9.4 fl (7.5-11.1); PLATELET COUNT 116 K/MM3 (134-434); RDW 15.1 % (11.9-15.9); WHITE BLOOD COUNT 11.7 K/mm3 (4.0-10.0)
[2016-10-27 08:44] LABS: CALCIUM 7.6 mg/dL (8.5-10.1); COCKROFT - GAULT 47.28; CREATININE 1.3 mg/dL (0.7-1.3); PHOSPHOROUS 2.1 mg/dL (2.5-4.9)
--- NOTE | 2016-10-27 09:09 | PN ---
Teaching Attending Note Name of Resident: Ranjana Roca ATTENDING PHYSICIAN STATEMENT I saw and evaluated the patient. I reviewed the resident's note and discussed the case with the resident. I agree with the resident's findings and plan as documented. SUBJECTIVE:continues to have pain in the plantar of the L foot, resolved with pain medication. no active draining from insertion site. denies CP, SOB,fever, chills, N/V/C/D OBJECTIVE: Last Vital Signs Temp Pulse Resp BP Pulse Ox 99.2 F 78 18 146/59 94 L 10/27/16 07:21 10/27/16 07:21 10/27/16 07:21 10/27/16 07:21 10/26/16 21:00 General NAD CV S1 S2 RRR no murmur/rub/gallop Lungs CTA B/L no wheezing/rales/rhonchi extremities warm LLE, L groin no active bleeding. sonal intact. bandage c/d/i ASSESSMENT AND PLAN: 75yo M with PMH PVD s/p multiple stents and surgeries, BPH and dyslipidemia presented to the ER and was admitted for further evaluation of thier emergent condition 1. PVD with B/L arterial occlusion-s/p angiogram with fem bypass and thrombectomy POD #4. management per surgery. d/w surgery about re-starting plavix. OOB to chair. PT eval. pain control 2. Acute hemorrhagic blood loss anemia- 1.5L blood loss during surgery. s/p 4 units PRBC this admission. Hgb stable. txn for hgb <8. 3. thrombocytopenia- 3 units platelets given this admission. platelet count stable. no active bleeding appreciated. hematology consulted 4, constipation-small BM in the evening, if no BM by this afternoon will give enema. cont miralax/senna 5. Elevated BP- no hx of HTN. slightly above goal. start low dose acei. 6. hypophosphatemia- neutraphos x2 7. CRAIG- dehydration. avoid nephrotoxic agents. improving. avoid nephrotoxic agents. good UOP. 8. DVT ppx- start hep sq 9. d/c planning for tomorrow. PT eval as would likely benefit from EREN.
[2016-10-27] MEDS ORDERED: LISINOPRIL 5 MG TABLET (FP) PO ONE ×2 (09:32→15:45)
[2016-10-27] MEDS ORDERED: NAPH,MB-DB/K PH,MBDB POWDER PACKET PO ONE (09:32)
[2016-10-27] MEDS ORDERED: PATIENT'S OWN MEDICATION (NON-FORMULARY) (Mirabegron [Myrbetriq] 25 MG) PO SCH (10:00)
--- NOTE | 2016-10-27 10:59 | PN ---
Progress Note (short form) - Note Progress Note: POD #3 Alert. Sitting in chair at bedside with legs elevated on a chair. States he has gotten out of bed and ambulated a little in his room with assistance from his nurse. States he is now able to place weight on his left foot without experiencing pain (had it prior too surgery). Denies n/v/f/c, CP or SOB. Last Vital Signs Temp Pulse Resp BP Pulse Ox 99.2 F 78 18 146/59 94 L 10/27/16 07:21 10/27/16 07:21 10/27/16 07:21 10/27/16 07:21 10/26/16 21:00 CBC, BMP 10/27/16 06:30 10/27/16 06:30 INR, PTT INR 1.11 (0.82-1.09) 10/26/16 05:00 Fibrinogen 262.0 mg/dL (238-498) 10/26/16 05:00 PE General: alert. nad. LLE: groin incision intact with sonal. ecchymosis. + hematoma. No calf tenderness. No edema. Foot warm. Doppler PT b/l (R>L) Problem List - Problems (1) PAD (peripheral artery disease) Assessment/Plan: PT last saw patient 10/24. I spoke with PT this morning and asked that they resume seeing patient. Also, requested a walking assist device. Pain management PRN Regular diet dc planning possibly 10/28 Code(s): I73.9 - PERIPHERAL VASCULAR DISEASE, UNSPECIFIED (2) Anemia Code(s): D64.9 - ANEMIA, UNSPECIFIED
[2016-10-27] MEDS: HYDROmorphone HCL CARPU-JECT 1 MG/1 ML DISP.SYRIN IVPB PRN ×2 (11:19→20:31)
[2016-10-27] MEDS: POLYETHYLENE GLYCOL 3350 119 GM BTL PO SCH ×2 (11:20→22:26)
--- NOTE | 2016-10-27 13:27 | PN ---
Physical Exam: SUBJECTIVE: Patient seen and examined sitting up in chair with legs elevated. Has gotten up and walked with nurse a little bit, not with physical therapy. admits to better sensation of bilateral feet/legs. Less pain. c/o not being able to have a BM in one week. (chart state he went yesterday sm amt). OBJECTIVE: Vital Signs Period Temp Pulse Resp BP Sys/[place] Pulse Ox Last 24 Hr 99.2 F-99.5 F 77-90 16-18 131-153/59-77 94 GENERAL: The patient is awake, alert, and fully oriented, in no acute distress. HEAD: Normal with no signs of trauma. EYES: PERRL, extraocular movements intact, sclera anicteric, conjunctiva clear. No ptosis. ENT: Ears normal, nares patent, oropharynx clear without exudates, moist mucous membranes. NECK: Trachea midline, full range of motion, supple. LUNGS: Breath sounds equal, clear to auscultation bilaterally, no wheezes, no crackles, no accessory muscle use. HEART: Regular rate and rhythm, S1, S2 without murmur, rub or gallop. ABDOMEN: Soft, nontender, nondistended, normoactive bowel sounds, no guarding, no rebound, no hepatosplenomegaly, no masses. EXTREMITIES: 2+ pulses, warm, well-perfused, no edema. femeral artery repair left sided, clean, dry intact; sonal, no drainage or bleed. NEUROLOGICAL: Cranial nerves II through XII grossly intact. Normal speech, gait not observed. PSYCH: Normal mood, normal affect. SKIN: Warm, dry, normal turgor, no rashes or lesions noted Laboratory Results - last 24 hr 10/26/16 10/26/16 10/27/16 15:10 Unknown 06:30 WBC 12.3 H Cancelled 11.7 H Corrected WBC (auto) Cancelled RBC 3.65 L Cancelled 3.68 L Hgb 10.8 L Cancelled 10.7 L Hct 31.1 L Cancelled 31.6 L MCV 85.2 Cancelled 85.8 MCHC 34.7 Cancelled 33.9 RDW 15.0 Cancelled 15.1 Plt Count 114 L Cancelled 116 L MPV 9.6 Cancelled 9.4 Differential Comment Cancelled Platelet Estimate Cancelled Platelet Comment Cancelled RBC Morphology Cancelled Sodium Potassium Chloride Carbon Dioxide Anion Gap BUN Creatinine Random Glucose Calcium Phosphorus 10/27/16 06:30 WBC Corrected WBC (auto) RBC Hgb Hct MCV MCHC RDW Plt Count MPV Differential Comment Platelet Estimate Platelet Comment RBC Morphology Sodium 142 Potassium 3.9 Chloride 106 Carbon Dioxide 28 Anion Gap 8 BUN 16 D Creatinine 1.3 Random Glucose 118 H Calcium 7.6 L Phosphorus 2.1 L Active Medications Generic Name Dose Route Start Last Admin Trade Name Freq PRN Reason Stop Dose Admin Acetaminophen 325 mg 10/26/16 18:58 Tylenol - PO Q6H PRN PAIN Atorvastatin Calcium 10 mg 10/26/16 22:00 10/26/16 21:25 Lipitor - PO 10 mg HS LADARIUS Administration Gabapentin 300 mg 10/26/16 22:00 10/27/16 06:29 Neurontin - PO 300 mg TID LADARIUS Administration Hydromorphone HCl 1 mg 10/26/16 18:58 10/27/16 11:19 Dilaudid Injection - IVPB 1 mg Q4H PRN Administration PAIN Lisinopril 2.5 mg 10/28/16 10:00 Prinivil PO DAILY LADARIUS Non-Formulary Medication 25 mg 10/27/16 10:00 Mirabegron [Myrbetriq] PO DAILY LADARIUS Polyethylene Glycol 17 gm 10/26/16 22:00 10/27/16 11:20 Miralax (For Daily Use) - PO 17 gm BID LADARIUS Administration Senna 2 tab 10/26/16 18:58 Senna - PO HS PRN CONSTIPATION Tamsulosin HCl 0.4 mg 10/26/16 22:00 10/26/16 21:25 Flomax - PO 0.4 mg HS LADARIUS Administration Zolpidem Tartrate 5 mg 10/26/16 18:58 Ambien - PO HS PRN INSOMNIA ASSESSMENT/PLAN: Aorta CTA 10/23/2016: Occluded distal thoracic aortic to left deep femoral artery bypass graft Occluded bypass graft connecting the thoracic aortic-left DFA bypass graft and the right BEVELING AND EDGING MACHINE OPERATOR. Occluded NAS to left SFA stent. Occluded infrarenal abdominal aorta, right and left common iliac arteries, left external iliac and internal iliac arteries, left BEVELING AND EDGING MACHINE OPERATOR, SFA and popliteal artery with minimal markedly diminutive infrapopliteal flow via twigs of collateral vessels. Occluded right SFA, popliteal artery and infrapopliteal arteries with essentially no flow seen below the knee. Moderate left main renal artery stenosis. Chronic changes in the right lung bases and the left lung surrounding the thoracic aortic bypass graft. Small areas of anterior abdominal wall defects -hernia containing omental fat. Chest x-ray: Large heart. Previous partial left rib resection with left clip. No acute pathology appreciated. ASSESSMENT/PLAN: This is a 75 year old male with a significant PMHx of PAD, sp > 15 sx, presents with with severe left lower extremity numbness. CT angio details above, occlusion bypass graft, aortic left DFA and right BEVELING AND EDGING MACHINE OPERATOR. Occluded BEVELING AND EDGING MACHINE OPERATOR, SFA, popliteal. Followed by Dr. Robison. OR this afternoon. 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; Thrombectomy of aorto-femoral graft -4U PRBC and 2U FFP s/p sx yesterday -H/H stablized -Vascular following #leukocytosis:s/p sx -afebrile, -trend ; monitor vitals #hypertension: stable -started on lisinopril 2.5mg po qd *s/p fall at home; most likely related to current vascular issue; decreased sensation/numb -head ct; negative for acute pathology #moderate left renal artery stenosis seen on CT angio -right artery patent #BPH: -tamsulin #hyperlipidemia: -simvastatin FEN: Fluids: po Electrolytes: wnl Diet:soft VTE: starting to ambulate Disposition: most likely able to dc in am Visit type - Emergency Visit Emergency Visit: Yes ED Registration Date: 10/24/16 Care time: The patient presented to the Emergency Department on the above date and was hospitalized for further evaluation of their emergent condition. - New Patient This patient is new to me today: No - Critical Care Critical Care patient: No
[2016-10-27] MEDS ORDERED: CLOPIDOGREL BISULFATE 75 MG TABLET (FP) PO SCH (16:45)
[2016-10-27] MEDS ORDERED: OXYCODONE/APAP 5/325MG COMBO TABLET PO PRN ×2 (20:15)
[2016-10-27] MEDS ORDERED: oxyCODONE HCL 5 MG TABLET PO PRN (20:19)
[2016-10-27] MEDS ORDERED: ACETAMINOPHEN 325 MG TABLET (FP) PO PRN ×2 (20:19→20:20)
[2016-10-27] MEDS: ATORVASTATIN CA 10 MG TABLET (FP) PO SCH (22:25)
[2016-10-27] MEDS: ZOLPIDEM TARTRATE 5 MG TABLET PO PRN (22:25)
[2016-10-27] MEDS: TAMSULOSIN HCL 0.4 MG CAP.ER.24H (FP) PO SCH (22:26)
[2016-10-28] MEDS: GABAPENTIN 300 MG CAPSULE (FP) PO SCH ×3 (06:14→21:59)
[2016-10-28] MEDS: oxyCODONE HCL 5 MG TABLET PO PRN (06:15)
--- NOTE | 2016-10-28 07:53 | PN ---
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 Thrombectomy of aorto-femoral graft. Angiography Alert. Sitting in bed. States he walked with PT yesterday (no note in chart from PT). Continues to complain about a "numbness/tingling" to the bottom of his feet b/l (present prior to surgery). No h/o diabetes. Plavix restarted 10/27. Denies n/v/f/c, CP or SOB. Last Vital Signs Temp Pulse Resp BP Pulse Ox 98.5 F 69 20 146/79 96 10/28/16 07:38 10/28/16 07:38 10/28/16 07:38 10/28/16 07:38 10/27/16 21:00 PE Gen: alert. nad. LLE: groin incision intact with sonal. ecchymosis. + hematoma. No calf tenderness. No edema. Foot warm. Doppler PT b/l (R>L) <Dmitry Terrell - Last Filed: 10/28/16 07:59> - Note Progress Note: Groin healing well, graft pulse palpable. Both feet warm. Weakness in toe extensors and numbness suggestive of ischemic neuropathy. Await PT evaluation. Will likely need Rehab and foot drop braces. <Mat Robison - Last Filed: 10/28/16 08:30> Problem List - Problems (1) PAD (peripheral artery disease) Assessment/Plan: Warm compress to left groin Awaiting note from PT in chart to see if any termite technician recommendations needed Cont medical management Recommend out-patient Neuro eval to include EMG Plavix No further surgical intervention Can dc from a surgical standpoint On behalf of Dr. Robison, thank you for the opportunity to participate in your patient's care Code(s): I73.9 - PERIPHERAL VASCULAR DISEASE, UNSPECIFIED (2) Anemia Code(s): D64.9 - ANEMIA, UNSPECIFIED <Dmitry Terrell - Last Filed: 10/28/16 07:59>
[2016-10-28 08:10] LABS: BASOPHIL 0.9 % (0-2.0); EOSINOPHIL 3.5 % (0-4.5); MCH 29.7 pg (25.7-33.7); MCHC 34.6 g/dl (32.0-35.9); MEAN PLT VOLUME 9.1 fl (7.5-11.1); NEUTROPHILS 73.8 % (42.8-82.8); PLATELET COUNT 135 K/MM3 (134-434); RDW 15.1 % (11.9-15.9); WHITE BLOOD COUNT 9.6 K/mm3 (4.0-10.0)
[2016-10-28 08:40] LABS: CALCIUM 7.9 mg/dL (8.5-10.1)
[2016-10-28 08:43] LABS: COCKROFT - GAULT 55.88; CREATININE 1.1 mg/dL (0.7-1.3)
[2016-10-28] MEDS: LISINOPRIL 5 MG TABLET (FP) PO SCH (11:23)
[2016-10-28] MEDS: POLYETHYLENE GLYCOL 3350 119 GM BTL PO SCH ×2 (11:23→22:16)
[2016-10-28] MEDS: ASPIRIN COATED 81 MG TABLET.EC PO SCH (11:23)
[2016-10-28 13:17] LABS: PHOSPHOROUS 2.4 mg/dL (2.5-4.9)
[2016-10-28] MEDS: APIXABAN 2.5 MG TABLET PO SCH ×2 (13:20→22:01)
--- NOTE | 2016-10-28 14:35 | PATH ---
Surgical Pathology Report Patient Name: HEATH RICHARD Med. Rec. #: [id number] /Age/Gender: 1940 (Age: 75) / M Account: [id number] [facility] Taken: 10/24/2016 Received: 10/25/2016 Reported: 10/28/2016 Physicians: Mat Robison M.D. Specimen(s) Received CONTENTS OF AORTIC GRAFT Clinical History Pain left lower extremity Final Diagnosis CONTENTS OF AORTIC GRAFT, OPEN THROMBECTOMY: FRAGMENTS OF THROMBUS. Electronically Signed Mitchel Santiago M.D. Gross Description Received in formalin labeled "contents of aortic graft" is a 9.0 x 7.0 x 1.6 cm aggregate of multiple mayfield-red irregular to portions of soft tissue. Rail Car Driver sections are submitted in 2 cassettes. /10/25/2016 saudi/10/25/2016
[2016-10-28] MEDS ORDERED: NAPH,MB-DB/K PH,MBDB POWDER PACKET PO ONE (14:58)
--- NOTE | 2016-10-28 15:18 | PN ---
Teaching Attending Note Name of Resident: Ranjana Roca ATTENDING PHYSICIAN STATEMENT I saw and evaluated the patient. I reviewed the resident's note and discussed the case with the resident. I agree with the resident's findings and plan as documented. SUBJECTIVE:pain controlled with pain medication. denies CP, SOB,fever, chills, N /V/C/D OBJECTIVE: Last Vital Signs Temp Pulse Resp BP Pulse Ox 98.5 F 68 20 142/72 96 10/28/16 07:38 10/28/16 10:00 10/28/16 13:11 10/28/16 10:00 10/28/16 13:11 General NAD CV S1 S2 RRR no murmur/rub/gallop Lungs CTA B/L no wheezing/rales/rhonchi extremities warm LLE, L groin no active bleeding. sonal intact. bandage c/d/i ASSESSMENT AND PLAN: 75yo M with PMH PVD s/p multiple stents and surgeries, BPH and dyslipidemia presented to the ER and was admitted for further evaluation of thier emergent condition 1. PVD with B/L arterial occlusion-s/p angiogram with fem bypass and thrombectomy. plavix switched to eliquis. OOB to chair. PT eval. pain control 2. Acute hemorrhagic blood loss anemia- 1.5L blood loss during surgery. s/p 4 units PRBC this admission. Hgb stable. txn for hgb <8. 3. thrombocytopenia- 3 units platelets given this admission. platelet count stable. no active bleeding appreciated. hematology consulted 4, constipation-resolved. large BM last night after enema. cont miralax/senna 5. Elevated BP- no hx of HTN. improved. started on low dose acei yesterday 6. hypophosphatemia- neutraphos x2 7. CRAIG- dehydration. avoid nephrotoxic agents. improving. avoid nephrotoxic agents. good UOP. 8. DVT ppx- start hep sq 9. medically optimized for discharge. will require EREN. awaiting authorization.
--- NOTE | 2016-10-28 20:29 | PN ---
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 Patient admits to overall improvement; although feels not able to go home, not steady on his feet. c/o continues tingling of his b/l feet, though improved when compared to pre surgery. Discuss SAH. OBJECTIVE: Vital Signs Period Temp Pulse Resp BP Sys/[place] Pulse Ox Last 24 Hr 98.5 F-98.8 F 67-77 18-20 136-149/72-80 96-96 GENERAL: The patient is awake, alert, and fully oriented, in no acute distress. HEAD: Normal with no signs of trauma. EYES: PERRL, extraocular movements intact, sclera anicteric, conjunctiva clear. No ptosis. ENT: Ears normal, nares patent, oropharynx clear without exudates, moist mucous membranes. NECK: Trachea midline, full range of motion, supple. LUNGS: Breath sounds equal, clear to auscultation bilaterally, no wheezes, no crackles, no accessory muscle use. HEART: Regular rate and rhythm, S1, S2 without murmur, rub or gallop. ABDOMEN: Soft, nontender, nondistended, normoactive bowel sounds, no guarding, no rebound, no hepatosplenomegaly, no masses. EXTREMITIES: 2+ pulses, warm, well-perfused, no edema. Left groin, upper anterioer thigh region; sonal intact , no erythema , edema NEUROLOGICAL: Cranial nerves II through XII grossly intact. Normal speech, gait not observed. PSYCH: Normal mood, normal affect. SKIN: Warm, dry, normal turgor, no rashes or lesions noted Laboratory Results - last 24 hr 10/24/16 10/28/16 10/28/16 17:04 07:00 07:00 WBC 9.6 RBC 3.69 L Hgb 11.0 L Hct 31.7 L MCV 86.0 MCHC 34.6 RDW 15.1 Plt Count 135 MPV 9.1 Neutrophils % 73.8 Lymphocytes % 13.0 Monocytes % 8.8 Eosinophils % 3.5 D Basophils % 0.9 Sodium 142 Potassium 3.9 Chloride 105 Carbon Dioxide 29 Anion Gap 8 BUN 12 D Creatinine 1.1 Random Glucose 115 H Calcium 7.9 L Phosphorus 2.4 L Crossmatch IS Only See Detail Active Medications Generic Name Dose Route Start Last Admin Trade Name Freq PRN Reason Stop Dose Admin Acetaminophen 325 mg 10/26/16 18:58 Tylenol - PO Q6H PRN PAIN Acetaminophen 325 mg 10/27/16 20:19 Tylenol - PO 10/30/16 20:18 Q4H PRN PAIN Acetaminophen 650 mg 10/27/16 20:20 Tylenol - PO 10/30/16 20:19 Q4H PRN PAIN Apixaban 2.5 mg 10/28/16 10:00 10/28/16 13:20 Eliquis - PO 2.5 mg BID LADARIUS Administration Aspirin 81 mg 10/28/16 10:00 10/28/16 11:23 Ecotrin - PO 81 mg DAILY LADARIUS Administration Atorvastatin Calcium 10 mg 10/26/16 22:00 10/27/16 22:25 Lipitor - PO 10 mg HS LADARIUS Administration Gabapentin 300 mg 10/26/16 22:00 10/28/16 16:01 Neurontin - PO 300 mg TID LADARIUS Administration Lisinopril 2.5 mg 10/28/16 10:00 10/28/16 11:23 Prinivil PO 2.5 mg DAILY LADARIUS Administration Non-Formulary Medication 25 mg 10/27/16 10:00 Mirabegron [Myrbetriq] PO DAILY LADARIUS Oxycodone HCl 5 mg 10/27/16 20:19 10/28/16 16:03 Roxicodone - PO 5 mg Q4H PRN Administration PAIN SCALE 1-5 Oxycodone HCl 10 mg 10/27/16 20:20 10/28/16 06:15 Roxicodone - PO 10 mg Q4H PRN Administration PAIN SCALE 6-10 Polyethylene Glycol 17 gm 10/26/16 22:00 10/28/16 11:23 Miralax (For Daily Use) - PO 17 gm BID LADARIUS Administration Senna 2 tab 10/26/16 18:58 Senna - PO HS PRN CONSTIPATION Tamsulosin HCl 0.4 mg 10/26/16 22:00 10/27/16 22:26 Flomax - PO 0.4 mg HS LADARIUS Administration Zolpidem Tartrate 5 mg 10/26/16 18:58 10/27/16 22:25 Ambien - PO 5 mg HS PRN Administration INSOMNIA Aorta CTA 10/23/2016: Occluded distal thoracic aortic to left deep femoral artery bypass graft Occluded bypass graft connecting the thoracic aortic-left DFA bypass graft and the right MANAGER OFFICE SERVICES. Occluded NAS to left SFA stent. Occluded infrarenal abdominal aorta, right and left common iliac arteries, left external iliac and internal iliac arteries, left MANAGER OFFICE SERVICES, SFA and popliteal artery with minimal markedly diminutive infrapopliteal flow via twigs of collateral vessels. Occluded right SFA, popliteal artery and infrapopliteal arteries with essentially no flow seen below the knee. Moderate left main renal artery stenosis. Chronic changes in the right lung bases and the left lung surrounding the thoracic aortic bypass graft. Small areas of anterior abdominal wall defects -hernia containing omental fat. Chest x-ray: Large heart. Previous partial left rib resection with left clip. No acute pathology appreciated. ASSESSMENT/PLAN: This is a 75 year old male with a significant PMHx of PAD, sp > 15 sx, presents with with severe left lower extremity numbness. CT angio details above, occlusion bypass graft, aortic left DFA and right MANAGER OFFICE SERVICES. Occluded MANAGER OFFICE SERVICES, SFA, popliteal. Followed by Dr. Robison. OR this afternoon. 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; Thrombectomy of aorto-femoral graft -4U PRBC and 2U FFP s/p sx -H/H stablized -Vascular f/u -patient does not feel strong enough/stable enough to go directly home -PT eval; patient only able to walk 40 step with walker -set up SAH; d.c tomorrow #leukocytosis:s/p sx resolved -afebrile, -trend ; monitor vitals #hypertension: stable -started on lisinopril 2.5mg po qd *s/p fall at home; most likely related to current vascular issue; decreased sensation/numb -head ct; negative for acute pathology #moderate left renal artery stenosis seen on CT angio -right artery patent #BPH: -tamsulin #hyperlipidemia: -simvastatin FEN: Fluids: po Electrolytes: wnl Diet:soft VTE: starting to ambulate Disposition: most likely able to dc in am Visit type - Emergency Visit Emergency Visit: Yes ED Registration Date: 10/24/16 Care time: The patient presented to the Emergency Department on the above date and was hospitalized for further evaluation of their emergent condition. - New Patient This patient is new to me today: No - Critical Care Critical Care patient: No
[2016-10-28] MEDS: ATORVASTATIN CA 10 MG TABLET (FP) PO SCH (21:59)
[2016-10-28] MEDS: TAMSULOSIN HCL 0.4 MG CAP.ER.24H (FP) PO SCH (21:59)
[2016-10-28] MEDS ORDERED: PT OWN MED DRAWER 7, Y5N ONE ×2 (22:01→23:24)
--- NOTE | 2016-10-28 22:10 | PN ---
Progress Note (short form) - Note Progress Note: PAtient seen and examined Feels Ok No major bleeding at site Last Vital Signs Temp Pulse Resp BP Pulse Ox 98.5 F 66 20 140/79 96 10/29/16 06:00 10/29/16 06:00 10/29/16 06:00 10/29/16 06:00 10/28/16 21:00 Cor: RSR, No murmurs, No gallops Lungs: Clear to P&A Abd: Soft, Normal bowel sounds, No organomegaly Ext:No significant edema Skin: No rashes, Integument intact Abnormal Lab Results 10/24/16 10/28/16 10/28/16 17:04 07:00 07:00 RBC 3.69 L Hgb 11.0 L Hct 31.7 L Random Glucose 115 H Calcium 7.9 L Phosphorus 2.4 L Crossmatch IS Only See Detail Home Medication List Medication Instructions Recorded Confirmed Type Gabapentin [Neurontin -] 300 mg PO Q8H 11/29/14 10/23/16 History Simvastatin [Zocor -] 20 mg PO HS 11/29/14 10/23/16 History Zolpidem Tartrate [Ambien] 10 mg PO HS 11/29/14 10/23/16 History Clopidogrel Bisulfate [Plavix -] 75 mg PO DAILY 01/18/16 10/23/16 History Mirabegron [Myrbetriq] 25 mg PO DAILY 09/17/16 10/23/16 History Oxycodone HCl/Acetaminophen 1 each PO Q6H PRN 09/17/16 10/23/16 History [Percocet 10-325 mg Tablet] Tamsulosin HCl [Flomax] 0.4 mg PO HS 09/17/16 10/23/16 History Active Medications Generic Name Dose Route Start Last Admin Trade Name Freq PRN Reason Stop Dose Admin Acetaminophen 325 mg 10/26/16 18:58 Tylenol - PO Q6H PRN PAIN Acetaminophen 325 mg 10/27/16 20:19 Tylenol - PO 10/30/16 20:18 Q4H PRN PAIN Acetaminophen 650 mg 10/27/16 20:20 Tylenol - PO 10/30/16 20:19 Q4H PRN PAIN Apixaban 2.5 mg 10/28/16 10:00 10/28/16 22:01 Eliquis - PO 2.5 mg BID LADARIUS Administration Aspirin 81 mg 10/28/16 10:00 10/28/16 11:23 Ecotrin - PO 81 mg DAILY LADARIUS Administration Atorvastatin Calcium 10 mg 10/26/16 22:00 10/28/16 21:59 Lipitor - PO 10 mg HS LADARIUS Administration Gabapentin 300 mg 10/26/16 22:00 10/29/16 05:43 Neurontin - PO 300 mg TID LADARIUS Administration Lisinopril 2.5 mg 10/28/16 10:00 10/28/16 11:23 Prinivil PO 2.5 mg DAILY LADARIUS Administration Non-Formulary Medication 25 mg 10/27/16 10:00 Mirabegron [Myrbetriq] PO DAILY LADARIUS Oxycodone HCl 5 mg 10/27/16 20:19 10/28/16 16:03 Roxicodone - PO 5 mg Q4H PRN Administration PAIN SCALE 1-5 Oxycodone HCl 10 mg 10/27/16 20:20 10/29/16 05:47 Roxicodone - PO 10 mg Q4H PRN Administration PAIN SCALE 6-10 Polyethylene Glycol 17 gm 10/26/16 22:00 10/28/16 22:16 Miralax (For Daily Use) - PO 17 gm BID LADARIUS Administration Senna 2 tab 10/26/16 18:58 Senna - PO HS PRN CONSTIPATION Tamsulosin HCl 0.4 mg 10/26/16 22:00 10/28/16 21:59 Flomax - PO 0.4 mg HS LADARIUS Administration Zolpidem Tartrate 5 mg 10/26/16 18:58 10/28/16 23:36 Ambien - PO 5 mg HS PRN Administration INSOMNIA A/P 75 y/o male with hyperchoolesterolemia, BPH, PVD , h/o multiple surgeries/stents ,came in with claudication s/p thrombectomy of aortofemoral graft, s/p repair Lt. femoral aneurysm and fem- fem bypass last dose plavix 4/5 and ASA 4/6 blood loss anemia s/p 4 units PRBCs platelets--3 units bleeding resolved at his time started eliquis/asa per vascular team
[2016-10-28] MEDS: ZOLPIDEM TARTRATE 5 MG TABLET PO PRN (23:36)
[2016-10-29] MEDS: GABAPENTIN 300 MG CAPSULE (FP) PO SCH (05:43)
[2016-10-29] MEDS: oxyCODONE HCL 5 MG TABLET PO PRN ×2 (05:47→11:10)
[2016-10-29 08:20] LABS: MCH 28.8 pg (25.7-33.7); MCHC 33.3 g/dl (32.0-35.9); MEAN CELL VOLUME 86.6 fl (80-96); MEAN PLT VOLUME 8.6 fl (7.5-11.1); PLATELET COUNT 174 K/MM3 (134-434); RDW 14.8 % (11.9-15.9); WHITE BLOOD COUNT 8.6 K/mm3 (4.0-10.0)
[2016-10-29 08:43] LABS: CALCIUM 7.7 mg/dL (8.5-10.1); COCKROFT - GAULT 51.22; CREATININE 1.2 mg/dL (0.7-1.3)
[2016-10-29] MEDS: ASPIRIN COATED 81 MG TABLET.EC PO SCH (10:02)
[2016-10-29] MEDS ORDERED: PT OWN MED DRAWER 7, Y5N ONE (10:02)
[2016-10-29] MEDS: APIXABAN 2.5 MG TABLET PO SCH (10:03)
[2016-10-29] MEDS: POLYETHYLENE GLYCOL 3350 119 GM BTL PO SCH (10:03)
[2016-10-29] MEDS: LISINOPRIL 5 MG TABLET (FP) PO SCH (10:03)
[2016-10-29] MEDS ORDERED: HYDROCORTISONE 1% TOPICAL CREAM 30 GM TUBE TP PRN (10:30)
[2016-10-29 12:00] VITALS: BP 171/78; PULSE 62; TEMP 97.7
--- NOTE | 2016-10-29 12:21 | DS ---
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 Admits to increased sensation of bilateral feet and toes that we did not have pre surgery OBJECTIVE: Vital Signs Period Temp Pulse Resp BP Sys/Cadena Pulse Ox Last 24 Hr 97.7 F-98.8 F 62-70 20-20 140-171/72-79 96-96 PHYSICAL EXAM GENERAL: The patient is awake, alert, and fully oriented, in no acute distress. HEAD: Normal with no signs of trauma. EYES: PERRL, extraocular movements intact, sclera anicteric, conjunctiva clear. ENT: Ears normal, nares patent, oropharynx clear without exudates, moist mucous membranes. NECK: Trachea midline, full range of motion, supple. LUNGS: Breath sounds equal, clear to auscultation bilaterally, no wheezes, no crackles, no accessory muscle use. HEART: Regular rate and rhythm, S1, S2 without murmur, rub or gallop. ABDOMEN: Soft, nontender, nondistended, normoactive bowel sounds, no guarding, no rebound, no hepatosplenomegaly, no masses. EXTREMITIES: 2+ pulses, warm, well-perfused, no edema. left inguinal/anterior thigh of let leg; sonal in tact, incision no swelling or erythema; increased rom og b/l toes and feet, able to walk 40 feet with walker NEUROLOGICAL:increased sensation of b/l LE PSYCH: Normal mood, normal affect. SKIN: Warm, dry, normal turgor, no rashes or lesions noted. LABS Laboratory Results - last 24 hr 10/24/16 10/28/16 10/29/16 17:04 07:00 07:15 WBC 8.6 RBC 3.68 L Hgb 10.6 L Hct 31.8 L MCV 86.6 MCHC 33.3 RDW 14.8 Plt Count 174 D MPV 8.6 Sodium Potassium Chloride Carbon Dioxide Anion Gap BUN Creatinine Random Glucose Calcium Phosphorus 2.4 L Crossmatch IS Only See Detail 10/29/16 07:15 WBC RBC Hgb Hct MCV MCHC RDW Plt Count MPV Sodium 144 Potassium 4.3 Chloride 106 Carbon Dioxide 30 Anion Gap 8 BUN 10 Creatinine 1.2 Random Glucose 113 H Calcium 7.7 L Phosphorus Crossmatch IS Only Aorta CTA 10/23/2016: Occluded distal thoracic aortic to left deep femoral artery bypass graft Occluded bypass graft connecting the thoracic aortic-left DFA bypass graft and the right FLYING I INSTRUCTOR. Occluded NAS to left SFA stent. Occluded infrarenal abdominal aorta, right and left common iliac arteries, left external iliac and internal iliac arteries, left FLYING I INSTRUCTOR, SFA and popliteal artery with minimal markedly diminutive infrapopliteal flow via twigs of collateral vessels. Occluded right SFA, popliteal artery and infrapopliteal arteries with essentially no flow seen below the knee. Moderate left main renal artery stenosis. Chronic changes in the right lung bases and the left lung surrounding the thoracic aortic bypass graft. Small areas of anterior abdominal wall defects -hernia containing omental fat. Chest x-ray: Large heart. Previous partial left rib resection with left clip. No acute pathology appreciated. HOSPITAL COURSE: Date of Admission:10/24/16 Date of Discharge: 10/29/16 This is a 75 year old male with a significant PMHx of PAD, sp > 15 sx, presents with with severe left lower extremity numbness. CT angiogram, details above, occlusion bypass graft, aortic left DFA and right FLYING I INSTRUCTOR. Occluded FLYING I INSTRUCTOR, SFA, popliteal. Followed by Dr. Robison. 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 #Severe peripheral vascular disease: -4U PRBC and 2U FFP s/p surgery: H/H stabilized -PT eval; patient only able to walk 40 step with walker -vascular follow up for staple removal #leukocytosis:s/p sx resolved -afebrile, -vitals stable; no infection #hypertension: stable -started on lisinopril 2.5mg po qd #s/p fall at home; most likely related to current vascular issue; decreased sensation/numb -head ct; negative for acute pathology on initial evaluation #moderate left renal artery stenosis seen on CT angio -right artery patent -follow up as outpatient #BPH: -tamsulin #hyperlipidemia: -simvastatin Sent to subacute rehab and follow up with vascular surgery. Minutes to complete discharge: 35 Discharge Summary Reason For Visit: INTRAC NEUROPHATIC PAIN LFT LOW EXTREMITY Current Active Problems Anemia (Acute) Left leg weakness (Acute) PAD (peripheral artery disease) (Acute) Pain in left ankle (Acute) Condition: Improved - Instructions Diet, Activity, Other Instructions: Mr. Ulrich please continue physical therapy. If you have experience any worsening of you condition please return to the emergency room. Referrals: Sai Scales MD [Primary Care Provider] - Disposition: HALFWAY FACILITY - Home Medications Comprehensive Discharge Medication List: Ambulatory Orders Gabapentin [Neurontin -] 300 mg PO Q8H 11/29/14 Zolpidem Tartrate [Ambien] 10 mg PO HS 11/29/14 Clopidogrel Bisulfate [Plavix -] 75 mg PO DAILY 01/18/16 Mirabegron [Myrbetriq] 25 mg PO DAILY 09/17/16 Oxycodone HCl/Acetaminophen [Percocet 10-325 mg Tablet] 1 each PO Q6H PRN Tamsulosin HCl [Flomax] 0.4 mg PO HS 09/17/16 Apixaban [Eliquis -] 2.5 mg PO BID tablet 10/29/16 Aspirin Coated [Ecotrin -] 81 mg PO DAILY #30 tablet 10/29/16 Atorvastatin Ca [Lipitor] 10 mg PO HS tablet 10/29/16 Hydrocortisone 1% Cream [Hytone 1% Cream -] 1 applic TP BID PRN #0 tube Lisinopril [Prinivil] 2.5 mg PO DAILY tablet 10/29/16 This patient is new to me today: No Emergency Visit: Yes ED Registration Date: 10/24/16 Care time: The patient presented to the Emergency Department on the above date and was hospitalized for further evaluation of their emergent condition. Critical Care patient: No - Discharge Referral Referred to [facility] Med P.[facility].: No
--- NOTE | 2016-10-29 16:56 | PN ---
Teaching Attending Note Name of Resident: Ranjana Roca ATTENDING PHYSICIAN STATEMENT I saw and evaluated the patient. I reviewed the resident's note and discussed the case with the resident. I agree with the resident's findings and plan as documented. SUBJECTIVE: OBJECTIVE: Vital Signs Period Temp Pulse Resp BP Sys/Cadena Pulse Ox Last 24 Hr 97.7 F-98.8 F 62-70 20-20 140-171/72-79 96-96 ASSESSMENT AND PLAN: 75yo M with PMH PVD s/p multiple stents and surgeries, BPH and dyslipidemia presented to the ER and was admitted for further evaluation of thier emergent condition 1. PVD with B/L arterial occlusion-s/p angiogram with fem bypass and thrombectomy. plavix switched to eliquis. OOB to chair. PT eval. pain control 2. Acute hemorrhagic blood loss anemia- 1.5L blood loss during surgery. s/p 4 units PRBC this admission. Hgb stable. txn for hgb <8. 3. thrombocytopenia- 3 units platelets given this admission. platelet count stable. no active bleeding appreciated. hematology consulted 4, constipation-resolved. large BM last night after enema. cont miralax/senna 5. Elevated BP- no hx of HTN. improved. started on low dose acei yesterday 6. hypophosphatemia- neutraphos x2 7. CRAIG- dehydration. avoid nephrotoxic agents. improving. avoid nephrotoxic agents. good UOP. 8. DVT ppx- start hep sq 9. medically optimized for discharge. will require EREN. awaiting authorization.
--- NOTE | 2016-11-08 08:56 | OP ---
DATE OF OPERATION: 10/24/2016 SURGEON: Mat Robison MD DIESEL ENGINE MECH[employer]IC APPRENTICE: ROEL Rivas PROCEDURE: Repair of left femoral artery aneurysm, with femoral-femoral bypass. Thrombectomy of aortofemoral graft. Angiography. PREOPERATIVE DIAGNOSIS: Thrombosed aortofemoral and femoral-femoral bypass grafts. Left femoral aneurysm. POSTOPERATIVE DIAGNOSIS: Thrombosed aortofemoral and femoral-femoral bypass grafts. Left femoral aneurysm. ANESTHESIA: General. ANESTHESIOLOGIST: Valeri Conner MD OPERATIVE FINDINGS: There was a large aneurysm of the left common femoral artery at the site of previous bypass graft. Outflow from the aneurysm was thrombosed to the deep femoral artery, which was patent. The femoral-femoral and aortofemoral bypass grafts were thrombosed. Angiography showed a patent right deep femoral artery. Following thrombectomy, the left deep femoral artery was patent. Runoff to the lower extremities was via collaterals to tibial arteries in the calf. No popliteal or distal femoral arteries were visualized on angiography. OPERATIVE PROCEDURE: Following routine patient identification, general anesthesia was induced. A Ivan catheter was placed. The abdomen and both lower extremities were prepped with ChloraPrep. A time-out was performed. A skin incision was made over the left femoral aneurysm, extending up over the distal portion of the left femoral-femoral bypass graft. The aneurysm was from the surrounding tissues with sharp dissection. Cautery was used where needed for hemostasis. The aneurysm was exposed more distally with extension of the skin incision. The deep femoral artery was exposed on its surface, but due to dense scar tissue could not be adequately mobilized at this point. The patient was systemically heparinized. The aneurysm was incised on its surface and extended proximally and distally down towards the deep femoral artery anastomosis. Old thrombus was removed from the aneurysm sac. Distal thrombectomy was then performed with a number 4 Ivan catheter until arterial back bleeding was returned from the deep femoral artery. With the balloon inflated in the artery, additional dissection was then possible to mobilize the deep femoral artery proximal and distal to the distal anastomosis from the previous bypass. The artery was then controlled with a bulldog clamp. A 7-mm PTFE graft was then anastomosed to the site of the old anastomosis using running sutures of 5-0 Prolene. Following completion of this anastomosis, the artery was allowed to back bleed and was filled with heparin solution, and the graft was occluded with a small vascular clamp. An incision was then made on the aortofemoral bypass graft just proximal to the femoral-femoral graft anastomosis. Thrombectomy of the graft was performed with a number 6 Ivan catheter until arterial inflow was restored and all thrombus was removed. The graft was filled with heparin solution and was occluded with a vascular clamp. The 7-mm PTFE graft was then anastomosed to the aortofemoral graft with running sutures of 5-0 Prolene. Upon completion of the suture line, the graft was allowed to back bleed and the proximal graft was allowed to flush. The femoral-femoral graft was also thrombectomized with the Ivan catheter, and angiography was performed prior to completion, showing a patent distal anastomosis on the right side. The anastomosis was then completed and clamps were removed. There was good flow through the anastomosis into the deep femoral artery, with a good Doppler signal heard. The femoral-femoral graft was also patent. The stump of the femoral-femoral graft going to the left groin was oversewn with a running suture of 3-0 Prolene. The aortofemoral graft was then punctured with an 18-gauge Angiocath and completion angiography performed, with the above-noted findings. The catheter was removed and bleeding controlled with a suture of Prolene. The aneurysm sac was then closed over the femoral-femoral graft with 3-0 Vicryl sutures. The wounds were irrigated and closed with interrupted sutures of 3-0 Vicryl and skin sonal. Sterile dressings were applied. The patient was taken to the recovery room in stable condition. Uriel [id number]
== END 2016-10-29 12:20 | DRG 253 ==
LOC: JER 08:56 → JERBED 18:30 → J5S 20:35 → OBSVTOIN 10-24 09:35 → JICU 10-24 22:24 → J8W 10-26 19:49
PROVIDERS: ADMIT Internal Medicine; ATTEND Internal Medicine
PROC: 04CL0ZZ Extirpation of Matter from Left Femoral Artery, Open Approach (ICD-10-PCS; 2016-10-24)
PROC: 04UL0JZ Supplement Left Femoral Artery with Synthetic Substitute, Open Approach (ICD-10-PCS; 2016-10-24)
PROC: 3E05017 Introduction of Other Thrombolytic into Peripheral Artery, Open Approach (ICD-10-PCS; 2016-10-24)
PROC: B40GYZZ Plain Radiography of Left Lower Extremity Arteries using Other Contrast (ICD-10-PCS; 2016-10-24)
PROC: 30233R1 Transfusion of Nonautologous Platelets into Peripheral Vein, Percutaneous Approach (ICD-10-PCS; 2016-10-24)
PROC: 30233N1 Transfusion of Nonautologous Red Blood Cells into Peripheral Vein, Percutaneous Approach (ICD-10-PCS; 2016-10-24)
PROC: 04CL0ZZ Extirpation of Matter from Left Femoral Artery, Open Approach (ICD-10-PCS; principal; 2016-10-24 18:30)
DX: I73.9 Peripheral vascular disease, unspecified (principal); N17.9 Acute kidney failure, unspecified; D62 Acute posthemorrhagic anemia; I74.3 Embolism and thrombosis of arteries of the lower extremities; E83.39 Other disorders of phosphorus metabolism; E86.0 Dehydration; D69.6 Thrombocytopenia, unspecified; I70.1 Atherosclerosis of renal artery; K59.00 Constipation, unspecified; R03.0 Elevated blood-pressure reading, without diagnosis of hypertension; E78.00 Pure hypercholesterolemia, unspecified; Z87.891 Personal history of nicotine dependence; N40.0 Benign prostatic hyperplasia without lower urinary tract symptoms; I25.10 Atherosclerotic heart disease of native coronary artery without angina pectoris
CPT/HCPCS: 36415; 36430; 70450-TC; 71010-TC; 75635-TC; 76000-TC; 80048; 80053; 82550; 83605; 83735; 84100; 84484; 85025; 85027; 85384; 85610; 85730; 86850; 86870; 86900; 86901; 86902; 86922; 88304-TC; 93005; 93010; 94760; 97116-GP; 97161-GP; 99284-25; G0378; J1644; P9034; P9038; P9058

== ENCOUNTER 2016-12-20 22:34 | Emergency (ER) | payer OTHER ==
[2016-12-20 22:52] VITALS: BP 151/87; PULSE 63; TEMP 97.8; BMI 28.5
--- NOTE | 2016-12-20 23:34 | PDOC ---
History of Present Illness - General History Source: Patient Exam Limitations: No Limitations - History of Present Illness Initial Comments: 12/21/16 00:38 The patient is a 75-year-old man, accompanied by , with a significant past medical history of Hyperlipidemia, Peripheral vascular disease (Dx at age 42 years), Bypass (sx 16 times) and BPH (Dx 3 yrs ago) who presents to the emergency department nausea, vomiting, diarrhea and chills for 3 days. Patient states he recently has a bypass on 10/24 and was discharged home on percocet. Patient initially used to take 1/2 pills QID but after his recent surgery his dosage was changed to 1 pill QID . Patient notes that on Friday he decided to go back to his old dose, 1/2 QID. He states that he started experiencing nausea, vomiting, diarrhea, chills and diaphoresis. He states I think I am addicted to these plls and I am withdrawing. He denies any chest pain, sob, aggarwal, abdominal pain or back pain. Pt denies any new LE pain, (chronic tingling at r foot as well as burning pain at plantar aspect of l foot) No fever or generalized weakness. No chest pain, lightheadedness, dizziness, palpitations, headache, visual changes. No abdominal pain, Allergies: No Known Drug Allergies. Primary Care Physician: Dr. Sai Scales [phone] Vascular Surgeon: Dr. Mat Robison [phone] <Grace Jain - Last Filed: 12/21/16 00:38> <New Matute - Last Filed: 12/21/16 01:33> - General Chief Complaint: Pain Stated Complaint: POST OP BALDO, WITHDRAWAL FROM MEDS, SHAKES Time Seen by Provider: 12/20/16 23:04 Past History <Grace Jain - Last Filed: 12/21/16 00:38> - Past Medical History Anemia: No Asthma: No Cancer: No Cardiac Disorders: Yes CVA: No COPD: No CHF: No Dementia: No Diabetes: No GI Disorders: No Disorders: No HTN: No Hypercholesterolemia: No Liver Disease: No Seizures: No Thyroid Disease: No - Surgical History Abdominal Surgery: No Appendectomy: No Cardiac Surgery: Yes (BYPASS ("ABOUT 15 PROCEDURE, STENTING") Cholecystectomy: No Lung Surgery: No Neurologic Surgery: No Orthopedic Surgery: Yes (RIGHT SHOULDER ARTHROSCOPY) - Psycho/Social/Smoking Cessation Hx Anxiety: No Suicidal Ideation: No Smoking History: Never smoked Have you smoked in the past 12 months: No If you are a former smoker, when did you quit?: 1974 Information on smoking cessation initiated: No Hx Alcohol Use: No Drug/Substance Use Hx: No Substance Use Type: None Hx Substance Use Treatment: No <New Matute - Last Filed: 12/21/16 01:33> - Past Medical History Allergies/Adverse Reactions: Allergies Allergy/AdvReac Type Severity Reaction Status Date / Time No Known Drug Allergies Allergy Verified 12/20/16 22:52 Home Medications: Ambulatory Orders Gabapentin [Neurontin -] 300 mg PO Q8H 11/29/14 Zolpidem Tartrate [Ambien] 10 mg PO HS 11/29/14 Mirabegron [Myrbetriq] 25 mg PO DAILY 09/17/16 Oxycodone HCl/Acetaminophen [Percocet 10-325 mg Tablet] 1 each PO Q6H PRN Tamsulosin HCl [Flomax] 0.4 mg PO HS 09/17/16 Apixaban [Eliquis -] 2.5 mg PO BID tablet 10/29/16 Atorvastatin Ca [Lipitor] 10 mg PO HS tablet 10/29/16 Lisinopril [Prinivil] 2.5 mg PO DAILY tablet 10/29/16 Ondansetron [Zofran -] 4 mg PO TID PRN #30 tablet 12/21/16 Review of Systems - Review of Systems Able to Perform ROS?: Yes Comments:: 12/21/16 00:39 CONSTITUTIONAL Reported: Chills No reported: Fever, Diaphoresis, Generalized Weakness, Malaise, Loss of Appetite HEENT: No reported: Rhinorrhea, Nasal Congestion, Throat Pain, Throat Swelling, Difficulty Swallowing, Mouth Swelling, Ear Pain, Eye Pain, Visual Changes CARDIOVASCULAR: No reported: Chest Pain, Syncope, Palpitations, Irregular Heart Rate, Lightheadedness, Peripheral Edema RESPIRATORY: No reported: Cough, Shortness of Breath, SOB with Exertion, Orthopnea, Wheezing , Stridor, Hemoptysis GASTROINTESTINAL: Reported: nausea, vomiting, diarrhea No reported: Abdominal pain, Abdominal Distension,Constipation, Melena, Hematochezia GENITOURINARY: No reported: Dysuria, Frequency, Urgency, Hesitancy, Flank Pain, Genital Pain MUSCULOSKELETAL: No reported: Myalgia, Arthralgia, Joint Swelling, Back pain, Neck Pain SKIN: No reported: Rash, Itching, Pallor HEMEATOLOGIC/IMMUNOLOGIC: No reported: Easy Bleeding, Easy Bruising, Lymphadenopathy, Frequent infections ENDOCRINE: No reported: Unexplained Weight Gain, Unexplained Weight Loss, Heat Intolerance , Cold Intolerance NEUROLOGIC: No reported: Headache, Focal Weakness, Paresthesias, Vertigo, Lightheadedness, Unsteady Gait, Seizure, Mental Status Changes, Incontinence PSYCHIATRIC: No reported: Anxiety, Depression <Grace Jain - Last Filed: 12/21/16 00:38> *Physical Exam - Vital Signs Last Vital Signs Temp Pulse Resp BP Pulse Ox 97.8 F 63 18 151/87 100 12/20/16 22:47 12/20/16 22:47 12/20/16 22:47 12/20/16 22:47 12/20/16 22:47 - Physical Exam Comments: 12/21/16 00:39 GENERAL: The patient is awake, alert, and fully oriented, Nontoxic - in no acute distress. HEAD: Normocephalic, atraumatic. EYES: (+)Pupils 2mm reactive to light symmetrically, extraocular movements intact, sclera anicteric, conjunctiva clear. ENT: Normal voice, Moist mucous membranes. NECK: Normal range of motion, supple LUNGS: Breath sounds equal, clear to auscultation bilaterally. No wheezes, no rhonchi, no rales. HEART: Regular rate and rhythm, without murmur, rub or gallop. ABDOMEN: Soft, nontender, normoactive bowel sounds. No guarding, no rebound. No CVA tenderness EXTREMITIES: Normal range of motion, no edema. (+) cap refill <1 sec on RLE, ~2 sec at LLE, mild tenderness to bottom of L foot, large scar on L inguinal region. NEUROLOGICAL: No facial assymetry, Normal speech, moving all 4 extremities spontaneously and symmetrically PSYCH: Normal mood, normal affect. SKIN: Warm, Dry, normal turgor. <Grace Jain - Last Filed: 12/21/16 00:38> - Vital Signs Last Vital Signs Temp Pulse Resp BP Pulse Ox 97.8 F 63 18 151/87 100 12/20/16 22:47 12/20/16 22:47 12/20/16 22:47 12/20/16 22:47 12/20/16 22:47 <New Matute - Last Filed: 12/21/16 01:33> Heart Score/ECG Review - ECG Impressions Comment:: 12/21/16 01:17 Twelve-lead EKG was performed and reviewed by me. There is normal sinus rhythm with a rate of [address] or T wave abnormalities. Impression: sinus bradycardia <New Matute - Last Filed: 12/21/16 01:33> ED Treatment Course - LABORATORY CBC & Chemistry Diagram: 12/21/16 00:29 12/21/16 00:29 - Medications Given in the ED: ED Medications Discontinued Medications Generic Name Dose Route Start Last Admin Trade Name Freq PRN Reason Stop Dose Admin Sodium Chloride 1,000 mls @ 1,000 mls/hr 12/20/16 23:36 12/21/16 00:36 Normal Saline - IV 12/21/16 00:35 1,000 mls/hr .Q1H ONE Administration Ondansetron HCl 4 mg 12/20/16 23:36 12/21/16 00:36 Zofran Injection IVPB 12/20/16 23:37 4 mg ONCE ONE Administration <Grace Jain - Last Filed: 12/21/16 00:38> - LABORATORY CBC & Chemistry Diagram: 12/21/16 00:29 12/21/16 00:29 <New Matute - Last Filed: 12/21/16 01:33> Medical Decision Making - Medical Decision Making 12/21/16 00:01 76y M htn, hl, PVD, presents for evaluation of chills, n/v, diarrhea, in the setting of cutting his percocet dose to 1/2 pil lfrom full pill QID. No associated cp, abd pain, fever/chills, sob. on exam pt appaars well, in NAD, large scar on the LLE, legs are warm. pink, with cap refil <1 on RLE and ~2sec on LLE. suspect possible withdrawal. will give zofran/fliuds will ck labs to r/o anemia,metabolic derangement ekg to screen for acs will reassess 12/21/16 01:30 labs unremarabkle pt feeling a bit better will have pt continue his meds will give pt rx for zofran and will hvae pt fu with pain mangement return precautions were discussed I discussed the physical exam findings, ancillary test results and final diagnoses with the patient. I answered all of the patient's questions. The patient was satisfied with the care received and felt comfortable with the discharge plan and treatment plan. The patient will call their primary care physician within 24 hours to arrange follow-up and will return to the Emergency Department with any new, persistent or worsening symptoms. A portion of this note was documented by scribe services under my direction. I have reviewed the details of the note, within reason, and agree with the documentation with the following case summary and management plan written by me <New Matute - Last Filed: 12/21/16 01:33> *DC/Admit/Observation/Transfer - Attestations Scribe Attestion: 12/21/16 00:39 Documentation prepared by SAW Harvey, acting as medical pathologist for New Matute MD. <Grace Jain - Last Filed: 12/21/16 00:38> - Discharge Dispostion Admit: No <New Matute - Last Filed: 12/21/16 01:33> Diagnosis at time of Disposition: Opioid dependence Qualifiers: Substance use status: uncomplicated Qualified Code(s): F11.20 - Opioid dependence, uncomplicated - Discharge Dispostion Disposition: HOME Condition at time of disposition: Improved - Referrals Referrals: Sai Scales MD [Primary Care Provider] - - Patient Instructions Printed Discharge Instructions: DI for Nausea -- Adult, DI for Drug Withdrawal Additional Instructions: Return to the emergency department immediately with ANY new, persistent or worsening symptoms. You MUST call and follow up with your doctor tomorrow for further evaluation of your symptoms. Results were discussed with you. Please make sure your doctor reviews the results of your emergency evaluation. If you had any xrays during your visit, it was read preliminarily by myself, a Radiologist will review it and if there are any additional findings we will call you. Print Language: SPANISH
[2016-12-20] MEDS ORDERED: SODIUM CHLORIDE 1,000 ML IV ONE (23:36)
[2016-12-20] MEDS ORDERED: ONDANSETRON 4 MG/2 ML VIAL IVPB ONE (23:36)
[2016-12-20] MEDS ORDERED: ONDANSETRON 4 MG/2 ML VIAL ONE (23:58)
[2016-12-21 00:38] LABS: BASOPHIL 1.3 % (0-2.0); EOSINOPHIL 2.3 % (0-4.5); MCH 26.8 pg (25.7-33.7); MCHC 32.1 g/dl (32.0-35.9); MEAN CELL VOLUME 83.4 fl (80-96); MEAN PLT VOLUME 8.3 fl (7.5-11.1); NEUTROPHILS 66.2 % (42.8-82.8); PLATELET COUNT 237 K/MM3 (134-434); RDW 14.3 % (11.9-15.9); WHITE BLOOD COUNT 7.9 K/mm3 (4.0-10.0)
[2016-12-21 01:01] LABS: ALBUMIN 3.8 g/dl (3.4-5.0); ALK PHOS 58 U/L (45-117); ANION GAP 12 (8-16); BILIRUBIN,TOTAL 0.4 mg/dL (0.2-1.0); CALCIUM 9.2 mg/dL (8.5-10.1); CO2 25 mmol/L (21-32); COCKROFT - GAULT 58.86; GLUCOSE,RANDOM 112 mg/dL (74-106); SGOT/AST 20 U/L (15-37); SGPT/ALT 31 U/L (12-78)
[2016-12-21 01:03] LABS: TROPONIN I < 0.02 ng/ml (0.00-0.05)
--- NOTE | 2016-12-21 19:17 | EKG ---
Test Reason : Blood Pressure : / mmHG Vent. Rate : 058 BPM Atrial Rate : 058 BPM P-R Int : 170 ms QRS Dur : 074 ms QT Int : 418 ms P-R-T Axes : 057 -20 021 degrees QTc Int : 410 ms SINUS BRADYCARDIA SEPTAL INFARCT , AGE UNDETERMINED ABNORMAL ECG WHEN COMPARED WITH ECG OF 23-OCT-2016 10:59, SEPTAL INFARCT IS NOW PRESENT Confirmed by JULIAN CADENA MD ([id number]) on 12/21/2016 7:17:02 PM Referred By: Confirmed By:JULIAN CADENA MD
== END 2016-12-21 01:50 | disposition home or self-care (01) ==
LOC: JER 22:34
PROC: 3E033GC Introduction of Other Therapeutic Substance into Peripheral Vein, Percutaneous Approach (ICD-10-PCS; principal; 2016-12-20)
DX: F11.23 Opioid dependence with withdrawal (principal); Z95.1 Presence of aortocoronary bypass graft; I73.9 Peripheral vascular disease, unspecified; N40.0 Benign prostatic hyperplasia without lower urinary tract symptoms
CPT/HCPCS: 36415; 80053; 82550; 82553; 83690; 83735; 84484; 85025; 93005; 93010; 96374; 99283-25

== ENCOUNTER 2017-10-02 06:37 | Day surgery (SDC) | payer OTHER ==
[2017-10-01 13:58] VITALS: BMI 25.6
--- NOTE | 2017-10-01 15:39 | HP ---
- Patient Scheduled date of Surgery: 10/02/17 Scheduled Surgical Procedure: Phacoemulsification and cataract extraction with PCIOL Affected Eye: Left Chief Complaint (Indication for surgery): Decreased vision affecting ADLs (HTN retinopathy) - Ocular History Eye Medications: vigamox Previous Eye Surgery: none - Medical History Illnesses: Hypertension, Hypercholesterolemia, Other (BPH, PVD s/p bypass) Current Medications: Ambulatory Orders Gabapentin [Neurontin -] 300 mg PO Q8H 11/29/14 Zolpidem Tartrate [Ambien] 10 mg PO HS 11/29/14 Mirabegron [Myrbetriq] 25 mg PO DAILY 09/17/16 Tamsulosin HCl [Flomax] 0.4 mg PO HS 09/17/16 Apixaban [Eliquis -] 2.5 mg PO BID tablet 10/29/16 Lisinopril [Prinivil] 2.5 mg PO DAILY tablet 10/29/16 Simvastatin 40 mg PO HS 10/01/17 Allergies/Adverse Reactions: Allergies Allergy/AdvReac Type Severity Reaction Status Date / Time No Known Drug Allergies Allergy Verified 10/01/17 13:48 Ocular Examination - Best Corrected Visual Acuity Distance: Right eye: 20//40 Distance: Left eye: 20/40 - External/Slit Lamp Examination Abnormalities: lll: papilla, s/c 1+ injection, K arcus senilis - Intraocular Pressure Intraocular Pressure - Right eye: 15 Intraocular Pressure-Left eye: 15 - Lens Lens: 2+ NS - Vitreous/Retina Vitreous/Retina: C:D 0.3 m/v/p wnl, attenuated arterioles ou - Special Examination M - Right eye: -1.00 M - Left eye: -.050-1.50 x 90 K - Right eye: 43/43.25 x 180 K - Left eye: 42.75/43.25 x 150 AL - Right eye: 23.66 AL - Left eye: 23.70 IOL bag: +20.50 Hoya 251 IOL sulcus: +20.0 hoya 231 IOL AC: +17.5 MTA4uo - Impression Impression: Cataract Left Eye - Plan Plan: Phacoemulsification and cataract extraction - IOL Left eye Post-hospital care will be provided in office on: 10/03/17
[~2017-10-02 06:37] MED LIST: DICLOFENAC SODIUM 0.1% OPHTHALMIC 2.5ML BOTTLE OP SCH; TOBRAMYCIN/DEXAMETHASONE OPHTH. OINTMENT 1 TUBE TP ONE
[2017-10-02] MEDS ORDERED: TROPICAMIDE 1% OPHTH SOLN 15 ML BOTTLE OP SCH (06:45)
[2017-10-02] MEDS ORDERED: CIPROFLOXACIN HCL 0.3% OPHTH 2.5ML BOTTLE OP SCH (06:45)
[2017-10-02] MEDS ORDERED: PHENYLEPHRINE 2.5% OPHTH SOLN 15 ML BOTTLE OP SCH (06:45)
[2017-10-02] MEDS ORDERED: FLURBIPROFEN 0.03% OPHTH SOLN 2.5 ML BOTTLE OP SCH (07:15)
[2017-10-02] MEDS ORDERED: ACETAMINOPHEN 325 MG TABLET (FP) PO PRN (07:30)
[2017-10-02] MEDS ORDERED: BSS (NA/CA/MG/K) BALANCED SALT SOLUTION OPHTH SOLN 15 ML BOTTLE ONE (07:35)
[2017-10-02] MEDS ORDERED: LIDOCAINE HCL 2% JELLY (5 ML/TUBE) ONE (07:35)
[2017-10-02] MEDS ORDERED: LIDOCAINE HCL/PF 1% SDV 5ML VIAL ONE (07:35)
[2017-10-02] MEDS: TROPICAMIDE 0.5% OPHTHALMIC SOLN 15 ML BOTTLE ONE ×3 (07:40→08:10)
[2017-10-02] MEDS: FLURBIPROFEN 0.03% OPHTH SOLN 2.5 ML BOTTLE ONE ×3 (07:40→08:10)
[2017-10-02] MEDS: PHENYLEPHRINE 2.5% OPHTH SOLN 15 ML BOTTLE ONE ×3 (07:40→08:10)
[2017-10-02] MEDS: CIPROFLOXACIN 0.3% EYE DROPS 5 ML BOTTLE ONE ×3 (07:40→08:10)
--- NOTE | 2017-10-02 08:31 | HP ---
History & Physical Update - History History: No Change - Physical Physical: No Change - Assessment Assessment: No Change - Plan Plan: No Change (no change from 09/18/17 Dr. Fischer"s H and P)
[2017-10-02] MEDS ORDERED: MIDAZOLAM HCL 2 MG/2 ML SINGLE DOSE VIAL ONE (08:40)
[2017-10-02] MEDS ORDERED: EPINEPHrine/PF 1 MG/1 ML (1:1,000) AMPULE ONE (08:42)
[2017-10-02] MEDS ORDERED: LIDOCAINE HCL 2% JELLY (5 ML/TUBE) TP ONE (08:47)
[2017-10-02] MEDS ORDERED: POVIDONE-IODINE 5% OPHTHALMIC PREP 30 ML SOLUTION OS ONE (08:49)
[2017-10-02] MEDS ORDERED: EPINEPHrine/PF 1 MG/1 ML (1:1,000) AMPULE SQ ONE ×2 (08:57→09:02)
[2017-10-02] MEDS ORDERED: LIDOCAINE HCL 1% PRESERVATIVE FREE - 30ML VIAL IO ONE (08:57)
[2017-10-02] MEDS ORDERED: BSS (NA/CA/MG/K) BALANCED SALT SOLUTION OPHTH SOLN 15 ML BOTTLE OS ONE (08:57)
[2017-10-02] MEDS ORDERED: CHONDROITIN SU A/HYALUR SOD 1 KIT IO ONE (08:57)
[2017-10-02] MEDS ORDERED: TOBRAMYCIN/DEXAMETHASONE OPHTH. OINTMENT 1 TUBE TP ONE (09:20)
--- NOTE | 2017-10-02 09:24 | OP ---
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
[2017-10-02 10:13] VITALS: BP 122/65; PULSE 58; TEMP 98.1
--- NOTE | 2017-10-02 10:27 | OP ---
DATE OF OPERATION: PREOPERATIVE DIAGNOSIS: Nuclear sclerotic cataract, left eye. POSTOPERATIVE DIAGNOSIS: Nuclear sclerotic cataract, left eye. PROCEDURE: Phacoemulsification and cataract extraction with insertion of posterior chamber intraocular lens, left eye. SURGEON: Sury Nicole MD CHILDCARE TEACHER: None. ANESTHESIA: Topical. ANESTHESIOLOGIST: DONI Oliva OPERATIVE PROCEDURE: The patient received satisfactory intravenous sedation and 2% lidocaine gel and was then prepped and draped in the usual sterile fashion so as to expose only the left eye. Ophthalmic Betadine was instilled into the inferior fornix. The lashes were taped out of the surgical field. An eyelid speculum was placed into the left eye. A paracentesis was made in inferior clear cornea at the limbus. Then 0.5% mL of nonpreserved lidocaine 1% was injected into the anterior chamber. Then 1 mL of dilute epinephrine 1:10,000 was injected into the anterior chamber to dilate the pupil. Then viscoelastic material was instilled into the anterior chamber via the paracentesis. A 2.4-mm keratome was then used to create the main incision in temporal clear cornea at the limbus. A continuous curvilinear capsulorrhexis was performed using a cystotome and Utrata forceps. Hyrodissection of the lens cortex was performed using BSS on a cannula until the nucleus was noted to be freely rotating. The phacoemulsification tip was then inserted via the main wound and used to sculpt 2 perpendicular grooves into the lens nucleus. The nucleus was cracked into 4 quadrants using 2 instruments. Each quadrant was lifted out of the capsule into the iris plane and individually phacoemulsified. The remaining cortical material was then aspirated using the irrigation and aspiration port. The capsular bag was inflated using Provisc, and a preloaded Hoya lens model 251, power +20.5 diopter was injected into the capsular bag and centered using a Sinskey hook. The residual viscoelastic material was removed from the anterior chamber using irrigation and aspiration. The wound edges were hydrated using BSS. The wound was tested for leakage. It was found to be watertight. Therefore, Tobradex ointment was placed in the eye, and a speculum was removed from the eye, and the eyelid was closed. A sterile dressing and shield were placed over the eye, and the patient was transferred to the recovery room in stable condition and told to follow up in 1 day. SURY NICOLE M.D. [id number]
== END 2017-10-02 10:20 | disposition home or self-care (01) ==
LOC: JASU-SURG 06:37
PROVIDERS: ATTEND Ophthalmology
PROC: 08RK3JZ Replacement of Left Lens with Synthetic Substitute, Percutaneous Approach (ICD-10-PCS; principal; 2017-10-02 08:30)
DX: H25.12 Age-related nuclear cataract, left eye (principal)

== ENCOUNTER 2017-10-09 06:28 | Day surgery (SDC) | payer OTHER ==
[2017-10-07 14:17] VITALS: BMI 25.6
--- NOTE | 2017-10-08 12:00 | HP ---
- Patient Scheduled date of Surgery: 10/09/17 Scheduled Surgical Procedure: Phacoemulsification and cataract extraction with PCIOL Affected Eye: Right Chief Complaint (Indication for surgery): Decreased vision affecting ADLs (none) - Ocular History Eye Medications: vigamox Previous Eye Surgery: s/p ce/pciol OS - Medical History Illnesses: Hypercholesterolemia, Other (BPH, PVD s/p bypass) Current Medications: Ambulatory Orders Gabapentin [Neurontin -] 300 mg PO Q8H 11/29/14 Zolpidem Tartrate [Ambien] 10 mg PO HS 11/29/14 Mirabegron [Myrbetriq] 25 mg PO DAILY 09/17/16 Tamsulosin HCl [Flomax] 0.4 mg PO HS 09/17/16 Apixaban [Eliquis -] 2.5 mg PO BID tablet 10/29/16 Lisinopril [Prinivil] 2.5 mg PO DAILY tablet 10/29/16 Simvastatin 40 mg PO HS 10/01/17 Allergies/Adverse Reactions: Allergies Allergy/AdvReac Type Severity Reaction Status Date / Time No Known Drug Allergies Allergy Verified 10/07/17 14:18 Ocular Examination - Best Corrected Visual Acuity Distance: Right eye: 20/40 Distance: Left eye: 20/20- - External/Slit Lamp Examination Abnormalities: arcus, blepharitis, injection1+ - Intraocular Pressure Intraocular Pressure - Right eye: 15 Intraocular Pressure-Left eye: 13 - Lens Lens: 2+ NS - Vitreous/Retina Vitreous/Retina: C:D 0.3 m/p wnl v: attenuated - Special Examination M - Right eye: -1.00 M - Left eye: pl- 0.50 x 075 K - Right eye: 43/43.25 x 170 K - Left eye: 43/44 x 180 AL - Right eye: 23.66 AL - Left eye: 23.70 IOL bag: +20.5 d hoya 251 IOL sulcus: +20 hoya 231 IOL AC: +17.5 d MTA4uo - Impression Impression: Cataract Right Eye - Plan Plan: Phacoemulsification and cataract extraction - IOL Right eye Post-hospital care will be provided in office on: 10/10/17
[~2017-10-09 06:28] MED LIST changes: -DICLOFENAC SODIUM 0.1% OPHTHALMIC 2.5ML BOTTLE OP SCH
[2017-10-09] MEDS ORDERED: CIPROFLOXACIN HCL 0.3% OPHTH 2.5ML BOTTLE OP SCH (06:45)
[2017-10-09] MEDS ORDERED: DICLOFENAC SODIUM 0.1% OPHTHALMIC 2.5ML BOTTLE OP SCH (06:45)
[2017-10-09] MEDS ORDERED: PHENYLEPHRINE 2.5% OPHTH SOLN 15 ML BOTTLE OP SCH (06:45)
[2017-10-09] MEDS ORDERED: TROPICAMIDE 1% OPHTH SOLN 15 ML BOTTLE OP SCH (06:45)
[2017-10-09] MEDS ORDERED: TROPICAMIDE 0.5% OPHTHALMIC SOLN 15 ML BOTTLE ONE (07:00)
[2017-10-09] MEDS ORDERED: CIPROFLOXACIN 0.3% EYE DROPS 5 ML BOTTLE ONE (07:01)
[2017-10-09] MEDS ORDERED: FLURBIPROFEN 0.03% OPHTH SOLN 2.5 ML BOTTLE ONE (07:04)
[2017-10-09] MEDS ORDERED: PHENYLEPHRINE 2.5% OPHTH SOLN 15 ML BOTTLE OD ONE ×3 (07:10→07:30)
[2017-10-09] MEDS ORDERED: TROPICAMIDE 0.5% OPHTHALMIC SOLN 15 ML BOTTLE OD ONE ×3 (07:10→07:30)
[2017-10-09] MEDS ORDERED: CIPROFLOXACIN HCL 0.3% OPHTH 2.5ML BOTTLE OD ONE ×3 (07:10→07:30)
[2017-10-09] MEDS ORDERED: FLURBIPROFEN 0.03% OPHTH SOLN 2.5 ML BOTTLE OD ONE ×3 (07:10→07:30)
[2017-10-09 07:13] VITALS: TEMP 97.8
[2017-10-09] MEDS ORDERED: ACETAMINOPHEN 325 MG TABLET (FP) PO PRN (07:30)
[2017-10-09] MEDS ORDERED: TOBRAMYCIN/DEXAMETHASONE OPHTH. OINTMENT 1 TUBE ONE (07:31)
[2017-10-09] MEDS ORDERED: LIDOCAINE HCL 2% JELLY (5 ML/TUBE) ONE (07:32)
[2017-10-09] MEDS ORDERED: LIDOCAINE HCL/PF 1% SDV 5ML VIAL ONE (07:32)
[2017-10-09] MEDS ORDERED: EPINEPHrine/PF 1 MG/1 ML (1:1,000) AMPULE ONE (07:32)
[2017-10-09] MEDS ORDERED: POVIDONE-IODINE 5% OPHTHALMIC PREP 30 ML SOLUTION ONE (07:32)
--- NOTE | 2017-10-09 07:38 | HP ---
History & Physical Update - History History: No Change - Physical Physical: No Change - Assessment Assessment: No Change - Plan Plan: No Change (reviewed dr Reid's h and p from 09/18/17 , no changes)
[2017-10-09] MEDS ORDERED: LIDOCAINE HCL 2% JELLY (5 ML/TUBE) TP ONE (07:45)
[2017-10-09] MEDS ORDERED: MIDAZOLAM HCL 2 MG/2 ML SINGLE DOSE VIAL ONE (07:53)
[2017-10-09] MEDS ORDERED: CHONDROITIN SU A/HYALUR SOD 1 KIT IO ONE (08:03)
[2017-10-09] MEDS ORDERED: LIDOCAINE HCL 1% PRESERVATIVE FREE - 30ML VIAL IO ONE (08:03)
[2017-10-09] MEDS ORDERED: TOBRAMYCIN/DEXAMETHASONE OPHTH. OINTMENT 1 TUBE TP ONE (08:26)
--- NOTE | 2017-10-09 08:31 | OP ---
Ophthalmology Operative Note Pre-Operative Diagnosis: Cataract Affected Eye: Right Operation: Phacoemulsification and cataract extraction with PCIOL Findings: cataract right eye, floppy iris Post-Operative Diagnosis: Same as Pre-op Rad Tech: None Anesthesiologist: Alondra Kirby MD Anesthesia: Topical Specimens Removed: none Estimated blood loss: none Drains & Tubes with Location: none Operative Report Dictated: Yes
--- NOTE | 2017-10-09 09:22 | OP ---
DATE OF OPERATION: DATE OF DICTATION: 10/09/2017 PREOPERATIVE DIAGNOSIS: Cataract, right eye. POSTOPERATIVE DIAGNOSIS: Cataract, right eye. PROCEDURE: Phacoemulsification and cataract extraction with insertion of posterior chamber intraocular lens, right eye. SURGEON: Sury Nicole MD CERTIFIED DIETARY MANAGER: None. ANESTHESIA: Topical. ANESTHESIOLOGIST: Alondra Kirby MD OPERATIVE PROCEDURE: The patient received 2% viscous lidocaine jelly and was then brought to the operating room and lightly sedated and prepped and draped in the usual sterile fashion so as to expose only the right eye. Ophthalmic Betadine was instilled into the inferior fornix and lashes were taped out of the surgical field. An eyelid speculum was placed into the right eye. Paracentesis was made in superior clear cornea at the limbus. Nonpreserved lidocaine 1%, 0.5 mL, was injected into the anterior chamber and 1 mL of dilute epinephrine 1:10,000 was injected into the anterior chamber. Viscoelastic material was instilled into the anterior chamber via the paracentesis and a 2.4-mm keratome was used to create the main incision in temporal clear cornea at the limbus. A continuous curvilinear capsulorrhexis was performed using a cystotome and Utrata forceps. Hydrodissection of the lens cortex was performed using BSS on a cannula until the nucleus was noted to be freely rotating. The phacoemulsification tip was then inserted via the main wound and used to sculpt 2 perpendicular grooves into the lens nucleus. The nucleus was cracked into 4 quadrants. Each quadrant was lifted out of the capsule into the iris plane and individually phacoemulsified. The remaining cortical material was then aspirated using the irrigation and aspiration port. The capsular bag was inflated using Provisc and a preloaded Hoya lens model 251, power +20.5 diopters, was injected into the capsular bag and centered using a Sinskey hook. The residual viscoelastic material was removed from the anterior chamber using irrigation and aspiration. The wound edges were hydrated using BSS. The wound was tested for leakage and was found to be watertight. Therefore, TobraDex ointment was placed in the eye and the speculum was removed from the eye and the eyelid was closed. A sterile dressing and shield were placed over the eye and the patient was transferred to the recovery room in stable condition. Told to follow up in 1 day. SURY NICOLE M.D. [id number]
[2017-10-09 09:51] VITALS: BP 110/60; PULSE 65
== END 2017-10-09 09:30 | disposition home or self-care (01) ==
LOC: JASU-SURG 06:28
PROVIDERS: ATTEND Ophthalmology
PROC: 08RJ3JZ Replacement of Right Lens with Synthetic Substitute, Percutaneous Approach (ICD-10-PCS; principal; 2017-10-09 07:30)
DX: H26.9 Unspecified cataract (principal)

== ENCOUNTER 2017-12-18 09:03 | Day surgery (SDC) | payer OTHER ==
[2017-12-18 10:45] VITALS: BMI 25.0
[2017-12-18] MEDS ORDERED: ASPIRIN 325 MG TABLET PO ONE (11:45)
--- NOTE | 2017-12-18 12:32 | PROC ---
Endoscopy Procedure Endoscopy procedure completed. Please see scanned procedure report.
[2017-12-18] MEDS ORDERED: PROPOFOL 20 ML ONE (12:55)
[2017-12-18] MEDS ORDERED: ETOMIDATE 20 MG/10 ML AMPUL IVPUSH ONE (12:55)
[2017-12-18] MEDS ORDERED: LIDOCAINE HCL/PF 2% SDV 5ML VIAL ONE (12:55)
[2017-12-18 13:52] VITALS: TEMP 97.8
[2017-12-18 15:00] VITALS: BP 155/76; PULSE 61
--- NOTE | 2017-12-22 11:19 | PATH ---
Surgical Pathology Report Patient Name: HEATH RICHARD [facility]. Rec. #: [id number] /Age/Gender: 1940 (Age: 77) / M Account: [id number] Location: U-ENDOSCOPY Taken: 12/18/2017 Received: 12/19/2017 Reported: 12/22/2017 Physicians: Jared Rouse M.D. Specimen(s) Received A: BX DUODENUM B: BX ANTRUM AND BODY Clinical History Screening iron deficiency anemia Postoperative diagnosis: Gastritis, normal colonoscopy Final Diagnosis A. DUODENUM, SECOND PORTION, BIOPSY: DUODENAL MUCOSA WITHOUT SIGNIFICANT PATHOLOGIC FINDINGS. B. STOMACH, ANTRUM AND BODY, BIOPSY: GASTRIC ANTRAL AND BODY MUCOSA WITH MODERATE CHRONIC GASTRITIS. IMMUNOHISTOCHEMICAL STAIN FOR H. PYLORI IS NEGATIVE. Electronically Signed Leeanna Coburn M.D. Gross Description He A. Received in formalin, labeled "biopsy second portion of duodenum" are 2 [place], irregular portions of soft tissue measuring 0.2 and 0.3 cm. in greatest dimension. The specimens are submitted in toto in one cassette. B. Received in formalin, labeled "biopsy antrum and body" are 3 mayfield, irregular portions of soft tissue ranging from 0.2-0.4 cm. in greatest dimension. The specimens are submitted in toto in one cassette. 12/19/201712/19/2017
== END 2017-12-18 15:00 | disposition home or self-care (01) ==
LOC: JASU-ENDO 09:03
PROVIDERS: ATTEND Internal Medicine Gastroenterology
PROC: 0DB98ZX Excision of Duodenum, Via Natural or Artificial Opening Endoscopic, Diagnostic (ICD-10-PCS; 2017-12-18)
PROC: 0DB68ZX Excision of Stomach, Via Natural or Artificial Opening Endoscopic, Diagnostic (ICD-10-PCS; 2017-12-18)
PROC: 0DJD8ZZ Inspection of Lower Intestinal Tract, Via Natural or Artificial Opening Endoscopic (ICD-10-PCS; principal; 2017-12-18 10:30)
DX: Z12.11 Encounter for screening for malignant neoplasm of colon (principal); D50.9 Iron deficiency anemia, unspecified; K64.8 Other hemorrhoids; K29.70 Gastritis, unspecified, without bleeding
CPT/HCPCS: 43239; G0121; 88305-TC; 88342-TC

== ENCOUNTER 2017-12-26 11:29 | Emergency (ER) | payer OTHER ==
[2017-12-26 11:34] VITALS: BP 149/79; PULSE 58; TEMP 98; BMI 25.0
[2017-12-26] MEDS ORDERED: KETOROLAC TROMETHAMINE 30 MG/1 ML VIAL IM ONE (12:01)
--- NOTE | 2017-12-26 12:01 | PDOC ---
History of Present Illness - General Chief Complaint: Injury Stated Complaint: RT ARM/SHOULDER PAIN Time Seen by Provider: 12/26/17 11:39 History Source: Patient, Old Records Exam Limitations: No Limitations - History of Present Illness Initial Comments: 12/26/17 12:03 This is a 77-year-old male with past medical history of DVT on this presents with right scapular pain for 2 days. Patient states for the past 2 days he has been doing work at home including removing windows and has pain doing a lot of hammering using his right arm. He states the pain started yesterday when he awoke and progressively got worse while hammering throughout the day yesterday waking up this morning with more pain. Patient rates the pain 9/10 and describes as an aching sensation. Pain worsens with articulation of the right shoulder. Patient has not tried taking the [id number] medication for pain relief. Patient denies any trauma. Patient denies any chest pain, shortness of breath, numbness or tingling the right arm. Past History - Past Medical History Allergies/Adverse Reactions: Allergies Allergy/AdvReac Type Severity Reaction Status Date / Time No Known Drug Allergies Allergy Verified 12/26/17 11:31 Home Medications: Ambulatory Orders Zolpidem Tartrate [Ambien] 10 mg PO HS 11/29/14 Mirabegron [Myrbetriq] 25 mg PO DAILY 09/17/16 Tamsulosin HCl [Flomax] 0.4 mg PO HS 09/17/16 Apixaban [Eliquis -] 2.5 mg PO BID tablet 10/29/16 Lisinopril [Prinivil] 2.5 mg PO DAILY tablet 10/29/16 Simvastatin 40 mg PO HS 10/01/17 Aspirin [ASA -] 81 mg PO DAILY 12/18/17 Gabapentin 300 mg PO DAILY 12/18/17 Anemia: No Asthma: No Cancer: No Cardiac Disorders: Yes CVA: No COPD: No CHF: No Dementia: No Diabetes: No GI Disorders: No Disorders: Yes (kidney stones) HTN: Yes Hypercholesterolemia: Yes Liver Disease: No Seizures: No Thyroid Disease: No - Surgical History Abdominal Surgery: Yes (ABDOMINAL VASCULAR SURGERY) Appendectomy: No Cardiac Surgery: Yes (BYPASS ("ABOUT 15 PROCEDURE, STENTING") Cholecystectomy: No Lung Surgery: No Neurologic Surgery: No Orthopedic Surgery: Yes (RIGHT SHOULDER ARTHROSCOPY,BILATERAL KNEE SURGERY) - Immunization History Immunization Up to Date: Yes - Suicide/Smoking/Psychosocial Hx Smoking History: Never smoked Have you smoked in the past 12 months: No If you are a former smoker, when did you quit?: 1974 Information on smoking cessation initiated: No Hx Alcohol Use: No Drug/Substance Use Hx: No Substance Use Type: None Hx Substance Use Treatment: No Review of Systems - Review of Systems Able to Perform ROS?: Yes Is the patient limited Serbian proficient: No Constitutional: No: Symptoms Reported HEENTM: No: Symptoms Reported Respiratory: No: Symptoms reported Cardiac (ROS): No: Symptoms Reported ABD/GI: No: Symptoms Reported : No: Symptoms Reported Musculoskeletal: Yes: See HPI Integumentary: No: Symptoms Reported Neurological: No: Symptoms reported *Physical Exam - Vital Signs Last Vital Signs Temp Pulse Resp BP Pulse Ox 98.0 F 58 L 18 149/79 99 12/26/17 11:31 12/26/17 11:31 12/26/17 11:31 12/26/17 11:31 12/26/17 11:31 - Physical Exam General Appearance: Yes: Appropriately Dressed. No: Apparent Distress Respiratory/Chest: positive: Lungs Clear, Normal Breath Sounds. negative: Respiratory Distress, Accessory Muscle Use Cardiovascular: positive: Regular Rhythm, Regular Rate, S1, S2. negative: Edema , Murmur Musculoskeletal: positive: Normal Inspection. negative: CVA Tenderness Extremity: positive: Normal Inspection. negative: Normal Range of Motion ( Decreased abduction. Patient unable to actively abduct greater than 45. Passive range of motion full 90 without difficulty.) Integumentary: positive: Normal Color, Dry, Warm Neurologic: positive: Alert, Normal Response Medical Decision Making - Medical Decision Making 12/26/17 12:14 A/P: Excellent 77-year-old male with right shoulder pain status post repetitive use over the past 2 days No tenderness to palpation of bony structures of the neck, shoulder, right arm No tenderness to muscles upon palpation Pain to right shoulder capsule elicited with abduction of right shoulder Lungs clear to auscultation bilaterally RRR. No murmur, rub or gallop noted. Evaluation of patient laboratory studies from one year ago reveals creatinine 1.0. I'll give the patient Naprosyn for likely arthritis. EKG, reassess 12/26/17 12:20 EKG sinus rhythm with rate of 56. Normal intervals noted. No significant change from EKG done on 12/21/16 12/26/17 13:19 Patient states his pain is currently 4/10 after receiving 1 dose of Naprosyn. I will discharge the patient home to follow-up with his orthopedist Dr. 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 *DC/Admit/Observation/Transfer Diagnosis at time of Disposition: Arthritis - Discharge Dispostion Disposition: HOME Condition at time of disposition: Stable Decision to Admit order: No - Referrals Referrals: Sai Scales MD [Primary Care Provider] - Richmond Butler MD [Staff Physician] - - Patient Instructions Printed Discharge Instructions: DI for Arthritis Additional Instructions: Take Tylenol or Aleve as needed for pain. Follow manufacturers instructions for appropriate dosage. Apply ice for 20 minutes and removed for at least 20 minutes before reapplying the ice. You've been given the number for an orthopedist. If symptoms do not resolve within the next 7 days call the orthopedist for further evaluation. Return to emergency department for any other concerns. Thank you very much for choosing us to provide your emergent healthcare needs. - Post Discharge Activity
[2017-12-26] MEDS ORDERED: NAPROXEN 500 MG TABLET (FP) PO ONE (12:14)
[2017-12-26] MEDS ORDERED: NAPROXEN 500 MG TABLET (FP) ONE (12:21)
--- NOTE | 2017-12-27 14:40 | EKG ---
Test Reason : Blood Pressure : / mmHG Vent. Rate : 056 BPM Atrial Rate : 056 BPM P-R Int : 172 ms QRS Dur : 076 ms QT Int : 432 ms P-R-T Axes : 016 -44 -26 degrees QTc Int : 416 ms SINUS BRADYCARDIA LEFT AXIS DEVIATION LEFT VENTRICULAR HYPERTROPHY WITH REPOLARIZATION ABNORMALITY ABNORMAL ECG WHEN COMPARED WITH ECG OF 21-DEC-2016 00:25, CRITERIA FOR SEPTAL INFARCT ARE NO LONGER PRESENT INVERTED T WAVES HAVE REPLACED NONSPECIFIC T WAVE ABNORMALITY IN INFERIOR LEADS Confirmed by MD Sulaiman, Azael ([id number]) on 12/27/2017 2:40:23 PM Referred By: CAMELIA Confirmed By:Azael Hilario MD
== END 2017-12-26 13:27 | disposition home or self-care (01) ==
LOC: JERFT 11:29
DX: M19.90 Unspecified osteoarthritis, unspecified site (principal); I10 Essential (primary) hypertension; E78.00 Pure hypercholesterolemia, unspecified; I51.9 Heart disease, unspecified
CPT/HCPCS: 93005; 93010; 99281-25